=== PATIENT | male | born 1975 | race Caucasian/White ===

== ENCOUNTER → 2018-01-14 | Outpatient (CLI) | payer SELFPAY ==
--- NOTE | 2018-01-14 15:14 | US ---
EXAMINATION TYPE: US abdomen limited DATE OF EXAM: 01/14/2018 COMPARISON: NONE CLINICAL HISTORY: R10.31 Rt Lower Quad Pain. Appendix not visualized with certainty 10 images saved show visualization of vessels in the right lower quadrant presumed iliac vessels with out worrisome fluid collection or definitive visualization of appendix. IMPRESSION: As above. Consider CT evaluation based on degree of clinical suspicion.
[2018-01-14 15:23] LABS: Basophils % (A) 0 %; Eosinophils % (A) 0 %; HCT 44.1 % (39.0-53.0); HGB 15.5 gm/dL (13.0-17.5); Lymphocytes # (A) 1.3 k/uL (1.0-4.8); Lymphocytes % (A) 9 %; MCH 33.1 pg (25.0-35.0); MCV 94.4 fL (80.0-100.0); Mean Platelet Volume 7.7; Monocytes # (A) 0.9 k/uL (0-1.0); Monocytes % (A) 6 %; Neutrophils # (A) 11.7 k/uL (1.3-7.7); Neutrophils % (A) 83 %; Platelet Count 146 k/uL (150-450); RBC 4.67 m/uL (4.30-5.90); RDW 12.4 % (11.5-15.5); WBC 14.1 k/uL (3.8-10.6)
== END | disposition home or self-care (01) ==
LOC: RADUSWWP 14:24
PROVIDERS: ATTEND Family Medicine
DX: R10.31 Right lower quadrant pain (principal); K50.90 Crohn's disease, unspecified, without complications
CPT/HCPCS: 76705; 85025; 86140

== ENCOUNTER 2018-01-18 08:54 | Inpatient (IN) | payer OTHER ==
[2018-01-18] MEDS ORDERED: SODIUM CHLORIDE 0.9% 1,000 ML IV STA ×2 (09:57)
[2018-01-18] MEDS ORDERED: ACETAMINOPHEN TAB 500 MG TAB PO STA (09:57)
--- NOTE | 2018-01-18 10:11 | ED ---
General Adult HPI <Laurent Cooper - Last Filed: 01/18/18 12:43> - General Source: patient, RN notes reviewed, old records reviewed Mode of arrival: ambulatory Limitations: no limitations <Lamin Schaffer - Last Filed: 01/18/18 12:47> - General Chief complaint: Fever Stated complaint: headache, fever Time Seen by Provider: 01/18/18 09:49 - History of Present Illness Initial comments: Patient is a 42-year-old male with no significant past medical history, presented to the emergency room today with a chief complaint of a headache and a fever times one week. He does admit that he noticed that he had a headache after coming home from work one week ago. States he jumped in the shower. She states when he got out a began feeling very warm. Nose that he had a fever. States she's had symptoms back and forth over the past week. He states fever spike to 3 times a day. He states that the headache seems to come in waves as well where it increases and goes back down throughout the day. Patient describes the headache as being located upfront more to the right side. Patient doesn't that he went to the family doctor's office last week for this symptoms. Was advised come here to the hospital because they were worried about his appendix at the time. He states he's had no abdominal pain. He doesn 't that his appetite has been somewhat down but seems to be getting better. Patient denies any neck pain or stiffness. Patient denies any recent shortness of breath, chest pain, back pain, abdominal pain, nausea or vomiting, numbness or tingling, dysuria or hematuria, constipation or diarrhea, visual changes, or any other complaints. (Lamin Schaffer) - Related Data Home Medications Medication Instructions Recorded Confirmed Atenolol [Tenormin] 25 mg PO BID 04/04/15 01/18/18 Hyoscyamine Sulfate [Levbid] 0.375 mg PO BID 04/04/15 01/18/18 Ibuprofen [Motrin] 800 mg PO Q8HR PRN 04/04/15 01/18/18 Lisinopril [Zestril] 20 mg PO BID 04/04/15 01/18/18 Omeprazole [PriLOSEC] 20 mg PO DAILY 04/04/15 01/18/18 Hydrocodone/Acetaminophen [[place] 1 - 2 tab PO Q4HR PRN 01/18/18 01/18/18 5-325] Magnesium 200 mg PO DAILY 01/18/18 01/18/18 Allergies Allergy/AdvReac Type Severity Reaction Status Date / Time No Known Allergies Allergy Verified 01/18/18 10:13 Review of Systems ROS Other: All systems not noted in ROS Statement are negative. <CooperLaurent - Last Filed: 01/18/18 12:43> ROS Other: All systems not noted in ROS Statement are negative. <SarbjitLamin - Last Filed: 01/18/18 12:47> ROS Statement: Those systems with pertinent positive or pertinent negative responses have been documented in the HPI. Past Medical History Past Medical History: GERD/Reflux, Hypertension Additional Past Medical History / Comment(s): IBS History of Any Multi-Drug Resistant Organisms: None Reported Past Surgical History: Hernia Repair Additional Past Surgical History / Comment(s): LT ING. HERNIA REPAIR. UMBILICAL REPAIR. SINUS SX. COLONOSCOPY. EGD Past Anesthesia/Blood Transfusion Reactions: No Reported Reaction Past Psychological History: No Psychological Hx Reported Smoking Status: Current every day smoker Past Alcohol Use History: None Reported Past Drug Use History: None Reported - Past Family History Father Family Medical History: Cancer, Deep Vein Thrombosis (DVT) Mother Family Medical History: Cancer, Deep Vein Thrombosis (DVT) Sister(s) Family Medical History: Deep Vein Thrombosis (DVT) <SarbjitLamin - Last Filed: 01/18/18 12:47> General Exam <KennethLaurent - Last Filed: 01/18/18 12:43> Limitations: no limitations <SarbjitLamin - Last Filed: 01/18/18 12:47> - General Exam Comments Initial Comments: General: The patient is awake and alert, in no distress. Diaphoretic. Eye: Pupils are equal, round and reactive to light. Extra-ocular movements are intact. No nystagmus. There is normal conjunctiva bilaterally. No signs of icterus. Ears, nose, mouth and throat: There are moist mucous membranes and no oral lesions. Neck: The neck is supple, there is no tenderness or JVD. No meningismal signs. Cardiovascular: There is a regular rate and rhythm. No murmur, rub or gallop is appreciated. Respiratory: Lungs are clear to auscultation, respirations are non-labored, breath sounds are equal. No wheezes, stridor, rales, or rhonchi. Gastrointestinal: Soft, non-distended, non-tender abdomen without masses or organomegaly noted. There is no rebound or guarding present. No CVA tenderness. Bowel sounds are unremarkable. Musculoskeletal: Normal ROM, no tenderness. Sensation intact. Strength 5/5. Pulses equal bilaterally 2+. Neurological: A&O x 3. CN II-XII intact, There are no obvious motor or sensory deficits. Coordination appears grossly intact. Speech is normal. Skin: Skin is warm and dry and no rashes or lesions are noted. Psychiatric: Cooperative, appropriate mood & affect, normal judgment. (Lamin Schaffer) Course <Laurent Cooper - Last Filed: 01/18/18 12:43> <Lamin Schaffer - Last Filed: 01/18/18 12:47> Vital Signs 01/18/18 01/18/18 08:58 11:27 Temperature 102.7 F H 97.9 F Pulse Rate 104 H 66 Respiratory 20 18 Rate Blood Pressure 118/71 121/64 O2 Sat by Pulse 98 95 Oximetry - Reevaluation(s) Reevaluation #1: 01/18/18 12:44 Patient was reevaluated by myself, Dr. Cooper. Patient resting comfortably in bed. Patient does have some rales on auscultation. This x-ray with bilateral infiltrates. No headache at this time. No meningismus. Patient updated on results. Case was discussed in detail with Dr. Hernandez who is familiar with this patient and will admit. Patient does meet sepsis criteria diagnosed at 1244. Blood culture and lactic acid and IV antibiotics have all been ordered. (Laurent Cooper) 01/18/18 11:10 Patient's chest x-ray reviewed does show bilateral infiltrates. Patient is diagnosed with sepsis at this time as he is tachycardic with a fever and pneumonia on x-ray. Patient started on antibiotics of Rocephin and azithromycin. No elevated white count. Lactic acid pending. Patient's potassium 3.2. Given by mouth potassium. Patient doing well at this time. Show no signs of distress. (Lamin Schaffer) Medical Decision Making - Lab Data Result diagrams: 01/18/18 09:43 09/17/18 09:43 <Laurent Cooper - Last Filed: 01/18/18 12:43> - Lab Data Result diagrams: 01/18/18 09:43 01/18/18 09:43 <Lamin Schaffer - Last Filed: 01/18/18 12:47> - Lab Data Lab Results 01/18/18 01/18/18 01/18/18 Range/Units 09:43 09:43 09:43 WBC 9.3 (3.8-10.6) k/uL RBC 4.45 (4.30-5.90) m/uL Hgb 14.3 (13.0-17.5) gm/dL Hct 40.8 (39.0-53.0) % MCV 91.7 (80.0-100.0) fL MCH 32.2 (25.0-35.0) pg MCHC 35.1 (31.0-37.0) g/dL RDW 12.4 (11.5-15.5) % Plt Count 232 (150-450) k/uL Neutrophils % 83 % Lymphocytes % 11 % Monocytes % 4 % Eosinophils % 1 % Basophils % 0 % Neutrophils # 7.7 (1.3-7.7) k/uL Lymphocytes # 1.0 (1.0-4.8) k/uL Monocytes # 0.3 (0-1.0) k/uL Eosinophils # 0.1 (0-0.7) k/uL Basophils # 0.0 (0-0.2) k/uL Sodium 134 L (137-145) mmol/L Potassium 3.2 L (3.5-5.1) mmol/L Chloride 98 (98-107) mmol/L Carbon Dioxide 25 (22-30) mmol/L Anion Gap 11 mmol/L BUN 18 (9-20) mg/dL Creatinine 1.03 (0.66-1.25) mg/dL Est GFR (CKD-EPI)AfAm >90 (>60 ml/min/1.73 sqM) Est GFR (CKD-EPI)NonAf >90 (>60 ml/min/1.73 sqM) Glucose 118 H (74-99) mg/dL Plasma Lactic Acid [place] 1.2 (0.7-2.0) mmol/L Calcium 8.5 (8.4-10.2) mg/dL Total Bilirubin 1.0 (0.2-1.3) mg/dL AST 51 (17-59) U/L ALT 53 (21-72) U/L Alkaline Phosphatase 68 (38-126) U/L Total Protein 6.1 L (6.3-8.2) g/dL Albumin 3.4 L (3.5-5.0) g/dL Disposition <Laurent oCoper - Last Filed: 01/18/18 12:43> Is patient prescribed a controlled substance at d/c from ED?: No Time of Disposition: 12:45 <Lamin Schaffer - Last Filed: 01/18/18 12:47> Clinical Impression: CAP (community acquired pneumonia), Sepsis Disposition: ADMITTED IP TO THIS HOSP Condition: Good Referrals: Darren France Jr, DO [Primary Care Provider] - 1-2 days
[2018-01-18 10:14] LABS: Basophils % (A) 0 %; Eosinophils # (A) 0.1 k/uL (0-0.7); Eosinophils % (A) 1 %; HCT 40.8 % (39.0-53.0); HGB 14.3 gm/dL (13.0-17.5); Lymphocytes % (A) 11 %; MCH 32.2 pg (25.0-35.0); MCHC 35.1 g/dL (31.0-37.0); MCV 91.7 fL (80.0-100.0); Mean Platelet Volume 7.3; Monocytes # (A) 0.3 k/uL (0-1.0); Monocytes % (A) 4 %; Neutrophils # (A) 7.7 k/uL (1.3-7.7); Neutrophils % (A) 83 %; Platelet Count 232 k/uL (150-450); RBC 4.45 m/uL (4.30-5.90); RDW 12.4 % (11.5-15.5); WBC 9.3 k/uL (3.8-10.6)
[2018-01-18 10:23] LABS: ALT 53 U/L (21-72); AST 51 U/L (17-59); Albumin 3.4 g/dL (3.5-5.0); Alkaline Phosphatase 68 U/L (38-126); Anion Gap 11 mmol/L; Blood Urea Nitrogen 18 mg/dL (9-20); Calcium 8.5 mg/dL (8.4-10.2); Carbon Dioxide 25 mmol/L (22-30); Chloride 98 mmol/L (98-107); Glucose 118 mg/dL (74-99); Potassium 3.2 mmol/L (3.5-5.1); Sodium 134 mmol/L (137-145); Total Protein 6.1 g/dL (6.3-8.2)
--- NOTE | 2018-01-18 10:29 | XR ---
EXAMINATION TYPE: XR chest 2V DATE OF EXAM: 01/18/2018 COMPARISON: NONE TECHNIQUE: PA and lateral views submitted. HISTORY: Fever and cough FINDINGS: There are bilateral infiltrates with most marked findings involving the left upper lobe. No pleural e ffusion or pneumothorax. Heart size within normal limits. IMPRESSION: 1. Bilateral infiltrate correlate for pneumonia.
--- NOTE | 2018-01-18 11:07 | CT ---
EXAMINATION TYPE: CT brain wo con DATE OF EXAM: 01/18/2018 COMPARISON: 09/12/2013 HISTORY: fever and Right orbital headache for [address] DLP: 1072.[address] of the brain was performed. The ventricles, basal cisterns and sulci overlying the cerebral convexities demonstrate a normal appe arance. There is no evidence for intracranial hemorrhage or sulcal effacement. No mass effects are seen. Osseous calvarium is intact. If symptoms persist consider MRI as clinically warranted. IMPRESSION: 1. No acute intracranial process is seen at this time.
[2018-01-18] MEDS ORDERED: POTASSIUM CHLORIDE ER 20 MEQ TAB.ER PO STA ×2 (11:11→17:05)
[2018-01-18] MEDS ORDERED: AZITHROMYCIN 500 MG in SODIUM CHLORIDE 0.9% 250 ML IVPB STA (11:16)
[2018-01-18 11:28] VITALS: RESP 18
[2018-01-18] MEDS ORDERED: PNEUMONIA PROTOCOL UTILIZED 1 EACH MISC PO PRN (12:47)
[2018-01-18] MEDS ORDERED: SODIUM CHLORIDE 0.9% 1,000 ML IV ONE (12:47)
[2018-01-18] MEDS ORDERED: HYDROcodone/APAP 5-325MG 1 EACH TAB PO PRN ×3 (15:02→15:19)
[2018-01-18] MEDS ORDERED: IBUPROFEN 800 MG TAB PO PRN ×2 (15:02→15:21)
[2018-01-18] MEDS ORDERED: ACETAMINOPHEN TAB 325 MG TAB PO PRN (15:05)
[2018-01-18 16:12] VITALS: BP 128/74; PULSE 84; TEMP 98.1
[2018-01-18] MEDS ORDERED: LISINOPRIL 20 MG TAB PO SCH (21:00)
[2018-01-18] MEDS ORDERED: ATENOLOL 25 MG TAB PO SCH (21:00)
[2018-01-18] MEDS ORDERED: HYOSCYAMINE SULFATE 0.375 MG TAB.ER.12H PO SCH (21:00)
[2018-01-19] MEDS ORDERED: PANTOPRAZOLE 40 MG TABLET PO SCH (07:30)
[2018-01-19] MEDS ORDERED: MAGNESIUM OXIDE 400 MG TAB PO SCH (09:00)
[2018-01-19] MEDS ORDERED: AZITHROMYCIN 500 MG TAB PO SCH (09:00)
--- NOTE | 2018-01-20 09:37 | P.DS ---
Providers Date of admission: 01/18/18 12:43 Expected date of discharge: 01/18/18 Attending physician: Darren France Primary care physician: Darren Edilma [facility] Course: DOCUMENT SERVES H&P AND DISCHARGE SUMMARY 42-year-old male who presented to the emergency room on 01/18/2018 chief complaint of a headache and a fever. Patient states he noticed his headache earlier in the day. He also complained of feeling warm and feverish. His headache has resolved by the time he was evaluated by medical team in his room on the medical floor. CT of the brain was completed which was negative for an acute intracranial process. Chest x-ray revealed bilateral pneumonia. The patient was started on azithromycin and Rocephin. He was given IV fluids in the emergency room. Upon examination at the bedside on the medical floor, the patient states he is feeling much better. He is afebrile at this time. He denies shortness of breath. Denies headache. Denies nausea or vomiting. Denies chest pain or pressure. His vital signs have been stable. The patient has no health insurance and is requesting to be discharged home. Dr. France is agreeable to discharge home today. The patient is to see Dr. Fracne tomorrow in the office for a second shot of Rocephin. A prescription was sent to the patient's preferred pharmacy for azithromycin. The patient was stable at the time of discharge and verbalized understanding of all discharge instructions. DISCHARGE DIAGNOSIS: Bilateral pneumonia, community-acquired, organism unspecified Headache, etiology unclear, resolved at the time of discharge, brain CT negative Hypertension Gastroesophageal reflux disease Nicotine dependence Nurse practitioner note has been reviewed by physician. Signing provider agrees with the documented findings, assessment, and plan of care. Patient Condition at Discharge: Stable Plan - Discharge Summary Discharge Rx Participant: No New Discharge Prescriptions: New Azithromycin [Zithromax] 500 mg PO DAILY #3 tab Continue Atenolol [Tenormin] 25 mg PO BID Lisinopril [Zestril] 20 mg PO BID Ibuprofen [Motrin] 800 mg PO Q8HR PRN PRN Reason: Pain Hyoscyamine Sulfate [Levbid] 0.375 mg PO BID Omeprazole [PriLOSEC] 20 mg PO DAILY Hydrocodone/Acetaminophen [[place] 5-325] 1 - 2 tab PO Q4HR PRN PRN Reason: pain Magnesium 200 mg PO DAILY Discharge Medication List Atenolol [Tenormin] 25 mg PO BID 04/04/15 [History] Hyoscyamine Sulfate [Levbid] 0.375 mg PO BID 04/04/15 [History] Ibuprofen [Motrin] 800 mg PO Q8HR PRN 04/04/15 [History] Lisinopril [Zestril] 20 mg PO BID 04/04/15 [History] Omeprazole [PriLOSEC] 20 mg PO DAILY 04/04/15 [History] Azithromycin [Zithromax] 500 mg PO DAILY #3 tab 01/18/18 [Rx] Hydrocodone/Acetaminophen [[place] 5-325] 1 - 2 tab PO Q4HR PRN 01/18/18 [History] Magnesium 200 mg PO DAILY 01/18/18 [History] Follow up Appointment(s)/Referral(s): Darren France Jr, [Primary Care Provider] - 01/19/18 11:00 am Patient Instructions/Handouts: Viral Pneumonia (DC) Activity/Diet/Wound Care/Special Instructions: Patient must see Dr. France tomorrow for Rocephin injection. Please make patient an appointment before discharge Await repeat potassium level before discharge. If potassium is 3.5 or greater, no further action necessary. If potassium 3.4 or less, give 20meq kdur x 1 dose and then discharge home. Discharge Disposition: HOME SELF-CARE
== END 2018-01-18 18:14 | disposition home or self-care (01) | DRG 195 ==
LOC: EC 08:54 → 4MS4W 12:43
PROVIDERS: ADMIT Family Medicine; ATTEND Family Medicine
DX: J18.9 Pneumonia, unspecified organism (principal); R51 Headache; I10 Essential (primary) hypertension; K21.9 Gastro-esophageal reflux disease without esophagitis; F17.200 Nicotine dependence, unspecified, uncomplicated; Z79.891 Long term (current) use of opiate analgesic; Z79.899 Other long term (current) drug therapy
CPT/HCPCS: 36415; 70450; 71046; 80053; 83605; 84132; 85025; 87040; 96361; 96365; 96367; 99285

== ENCOUNTER → 2023-04-21 | Outpatient (CLI) | payer OTHER ==
[2023-04-21 15:24] LABS: Chol/HDL Ratio 4.57 Ratio; LDL Cholesterol,Calculated 168.9 mg/dL (0.0-131.0)
[2023-04-21 15:41] LABS: ALT 35 U/L (10-49); AST 30 U/L (14-35)
[2023-04-22 03:12] LABS: B/A1 Ratio 0.76 Ratio (0.35 - 1.00)
== END | disposition home or self-care (01) ==
LOC: LABWHC1 09:30
PROVIDERS: ATTEND Internal Medicine
DX: E78.2 Mixed hyperlipidemia (principal)
CPT/HCPCS: 36415; 80061; 82172; 84450; 84460

== ENCOUNTER → 2024-05-02 | Outpatient (CLI) | payer BC ==
--- NOTE | 2024-05-17 05:04 | P.PCN ---
Date of Procedure: 05/02/24 Operative Findings: Home sleep study History This is a 48-year-old male patient with known history of severe RASHIDA with an AHI of 64 based on a sleep study done back in 2012. The patient has been off treatment and he presented to me for reevaluation. Over the past several years, the patient did not use CPAP therapy and has become more symptomatic and more somnolent. In addition, the patient was diagnosed having hypertrophic obstructive cardiomyopathy. No significant weight gain. No cardiac arrhythm ias. The patient is currently being considered for an AICD regarding his hypertrophic obstructive cardiomyopathy. A home sleep study was ordered to reestablish diagnosis. Physical findings Weight is 250 pounds with a body mass index of 32.1 Technical description This is a type III home sleep study evaluation. The [employer] system was used to complete the home sleep study. The total recording duration was 7 hours and 29 minutes. The study started at 11:37 PM and ended at 7:06 AM. There was a total of 7 hours and 17 minutes of flow monitoring in 6 hours and 7 minutes of oxygen saturation monitoring Results Respiratory analysis showed a total of 92 obstructive apneas and 146 obstructive hypopneas. The resulting AHI was 32.6 consistent with severe RASHIDA Oxygenation analysis The baseline pulse ox while awake was 95%. Average pulse ox during sleep was 90%. Minimum pulse ox was 76%. The patient spent approximately 1 hours and 44 minutes of the sleep time below pulse ox of 90%. Cardiac summary Average heart rate was 72 with a minimum heart rate of 66 and a maximum heart rate of 169 Assessment Severe RASHIDA with an AHI of 32.6 Severe nocturnal oxygen desaturation with a minimum pulse ox of 76% during sleep Hypertrophic obstructive cardiomyopathy Obesity with a BMI of 32 Plan Proceed with in lab CPAP titration.
== END ==
LOC: 3 N SLEEP 10:48
PROVIDERS: ATTEND Internal Medicine Critical Care Medicine
DX: G47.33 Obstructive sleep apnea (adult) (pediatric) (principal); I42.1 Obstructive hypertrophic cardiomyopathy; E66.9 Obesity, unspecified; R09.02 Hypoxemia; F17.210 Nicotine dependence, cigarettes, uncomplicated; Z68.32 Body mass index [BMI] 32.0-32.9, adult

== ENCOUNTER 2024-06-21 17:22 | Emergency (ER) | payer BC ==
[2024-06-21 17:38] VITALS: RESP 18
[2024-06-21] MEDS: DEXAMETHASONE SOD PHOSPHATE 10 MG/ML 1 ML VIAL IM STA (18:38)
[2024-06-21] MEDS: ORPHENADRINE 30 MG/ML 2 ML VIAL IM STA (18:38)
[2024-06-21] MEDS: KETOROLAC 15 MG/ML 1 ML VIAL IM STA (18:38)
[2024-06-21] MEDS: LIDOCAINE 4% PATCH TOPICAL ONE (18:43)
--- NOTE | 2024-06-21 19:43 | ED ---
Back Pain HPI - General Chief Complaint: Back Pain/Injury Stated Complaint: Back pain Time Seen by Provider: 06/21/24 18:10 Source: patient Limitations: no limitations - History of Present Illness Initial Comments: Examination male complaining of back pain. Patient has history of lower back pain. Feels like regular exacerbation of his chronic pain. No known injury or trauma. No radiculopathy. No loss of bowel or bladder control or saddle paresthesia. No fever, chills, nausea, vomiting, abdominal pain, dysuria, hematuria, numbness, tingling, weakness. - Related Data Home Medications Medication Instructions Recorded Confirmed Hyoscyamine Sulfate [Levbid] 0.375 mg PO BID 04/04/15 01/18/18 Ibuprofen [Motrin] 800 mg PO Q8HR PRN 04/04/15 01/18/18 Omeprazole [PriLOSEC] 20 mg PO DAILY 04/04/15 01/18/18 atenoloL [Tenormin] 25 mg PO BID 04/04/15 01/18/18 lisinopriL [Zestril] 20 mg PO BID 04/04/15 01/18/18 Hydrocodone/Acetaminophen [[place] 1 - 2 tab PO Q4HR PRN 01/18/18 01/18/18 5-325] Magnesium 200 mg PO DAILY 01/18/18 01/18/18 Previous Rx's Medication Instructions Recorded Azithromycin [Zithromax] 500 mg PO DAILY #3 tab 01/18/18 Cyclobenzaprine [Flexeril] 10 mg PO TID PRN #15 tab 06/21/24 Allergies Allergy/AdvReac Type Severity Reaction Status Date / Time No Known Allergies Allergy Verified 06/21/24 17:38 Review of Systems ROS Statement: Those systems with pertinent positive or pertinent negative responses have been documented in the HPI. ROS Other: All systems not noted in ROS Statement are negative. Past Medical History Past Medical History: GERD/Reflux, Hypertension Additional Past Medical History / Comment(s): IBS, DDD lumbar spine. History of Any Multi-Drug Resistant Organisms: None Reported Past Surgical History: Hernia Repair Additional Past Surgical History / Comment(s): EGD, colonoscopy, repair L inguinal hernia, repair umbilical hernia and then repair incarcerated umbilical hernia with mesh. Past Anesthesia/Blood Transfusion Reactions: No Reported Reaction Past Psychological History: No Psychological Hx Reported Smoking Status: Current every day smoker Past Alcohol Use History: Occasional Past Drug Use History: None Reported, Marijuana - Past Family History Father Family Medical History: Cancer, Congestive Heart Failure (CHF), Deep Vein Thrombosis (DVT) Additional Family Medical History / Comment(s): Throat cancer. Father is living. Mother Family Medical History: Congestive Heart Failure (CHF), Deep Vein Thrombosis (DVT) Additional Family Medical History / Comment(s): Mother is living. Sister(s) Family Medical History: Deep Vein Thrombosis (DVT) General Exam Limitations: no limitations General appearance: alert, in no apparent distress Head exam: Present: atraumatic, normocephalic, normal inspection Eye exam: Present: normal appearance, EOMI Neck exam: Present: normal inspection. Absent: meningismus Respiratory exam: Absent: respiratory distress Cardiovascular Exam: Present: regular rate Extremities exam: Present: normal inspection, full ROM Back exam: Present: normal inspection. Absent: tenderness Neurological exam: Present: alert, oriented X3 Psychiatric exam: Present: normal affect, normal mood Skin exam: Present: warm, dry, normal color Course Vital Signs 06/21/24 06/21/24 17:36 22:25 Temperature 97.9 F 97.8 F Pulse Rate 86 81 Respiratory 18 18 Rate Blood Pressure 110/71 112/72 O2 Sat by Pulse 97 98 Oximetry Medical Decision Making - Medical Decision Making Was pt. sent in by a medical professional or institution ([facility], [facility] [facility], urgent care, hospital, or fdc...) When possible be specific @ -No Did you speak to anyone other than the patient for history (EMS, parent, family, police, friend...)? What history was obtained from this source @ -No Did you review nursing and triage notes (agree or disagree)? Why? @ -I reviewed and agree with nursing and triage notes Were old charts reviewed (outside hosp., previous admission, EMS record, old EKG, old radiological studies, urgent care reports/EKG's, fdc records)? Report findings @ -No old charts were reviewed Differential Diagnosis (chest pain, altered mental status, abdominal pain women, abdominal pain men, vaginal bleeding, weakness, fever, dyspnea, syncope, headache, dizziness, GI bleed, back pain, seizure, CVA, palpatations, mental health, musculoskeletal)? @ - MDM Differential Back Pain: Strain, zoster, cauda equina syndrome, epidural abscess, vertebral osteomyelitis, discitis, fracture, subluxation, disc herniation, DJD, spinal stenosis, dissection, AAA, pancreatitis, peptic ulcer disease, pyelonephritis, kidney stone this is not meant to be an all-inclusive list. EKG interpreted by me (3pts min.). @ -As above X-rays interpreted by me (1pt min.). @ -None done CT interpreted by me (1pt min.). @ -None done U/S interpreted by me (1pt. min.). @ -None done What testing was considered but not performed or refused? (CT, X-rays, U/S, labs )? Why? @ -None What meds were considered but not given or refused? Why? @ -None Did you discuss the management of the patient with other professionals (professionals i.e. , PA, P[employer]IC [employer]ER, lab, RT, psych nurse, sexual assault social worker, electrical helper, teacher, radio division officer, correctional case manager)? Give summary @ -No Was smoking cessation discussed for >3mins.? @ -No Was critical care preformed (if so, how long)? @ -No Were there social determinants of health that impacted care today? How? (Homelessness, low income, unemployed, alcoholism, drug addiction, transportation, low edu. Level, literacy, decrease access to med. care, penitentiary, rehab)? @ -No Was there de-escalation of care discussed even if they declined (Discuss DNR or withdrawal of care, Hospice)? DNR status @ -No What co-morbidities impacted this encounter? (DM, HTN, Smoking, COPD, CAD, Cancer, CVA, ARF, Chemo, Hep., AIDS, mental health diagnosis, sleep apnea, morbid obesity)? @ -None Was patient admitted / discharged? Hospital course, mention meds given and route, prescriptions, significant lab abnormalities, going to OR and other pertinent info. @ -48-year-old male presenting with chief complaint of lower back pain. No red flag symptoms. Feels like an exacerbation of his chronic pain. Patient is treated with pain medication. Patient is later requesting discharge home. Follow-up with PCP. Report back to ER with any new or worsening symptoms. Discussed return parameters and answered all questions. Patient conveyed verbal understanding and agreed to the plan. I discussed this case in detail with my attending Dr. Undiagnosed new problem with uncertain prognosis? @ -No Drug Therapy requiring intensive monitoring for toxicity (Heparin, Nitro, Insulin, Cardizem)? @ -No Were any procedures done? @ -No Diagnosis/symptom? @ -Lumbar back pain Acute, or Chronic, or Acute on Chronic? @ -Acute on chronic Uncomplicated (without systemic symptoms) or Complicated (systemic symptoms)? @ -Uncomplicated Side effects of treatment? @ -No Exacerbation, Progression, or Severe Exacerbation? @ -No Poses a threat to life or bodily function? How? (Chest pain, [place], [place], pneumonia, PE, COPD, DKA, ARF, appy, cholecystitis, CVA, Diverticulitis, Homicidal, Suicidal, threat to staff... and all critical care pts) @ -Low likelihood Disposition Clinical Impression: Lumbar back pain Disposition: HOME SELF-CARE Condition: Good Instructions (If sedation given, give patient instructions): Acute Low Back Pain (ED) Additional Instructions: Follow-up with PCP. Report back to ER with any new or worsening symptoms. Prescriptions: Cyclobenzaprine [Flexeril] 10 mg PO TID PRN #15 tab PRN Reason: Spasms Is patient prescribed a controlled substance at d/c from ED?: No Referrals: Darren France Jr, [Primary Care Provider] - 1-2 days
[2024-06-21] MEDS: MORPHINE SULFATE 4 MG/ML SYRINGE IM STA (21:13)
[2024-06-21 22:27] VITALS: BP 112/72; PULSE 81; TEMP 97.8
== END 2024-06-21 22:27 | disposition home or self-care (01) ==
LOC: EC 17:22
DX: M54.50 Low back pain, unspecified (principal); F17.200 Nicotine dependence, unspecified, uncomplicated
CPT/HCPCS: 99283; 96372; J2270; J1100; J2360; J1885

== ENCOUNTER → 2024-07-28 | Outpatient (CLI) | payer BC ==
--- NOTE | 2024-07-28 11:26 | XR ---
EXAMINATION TYPE: XR lumbar spine 2 or 3V DATE OF EXAM: 07/28/2024 CLINICAL HISTORY: Lumbar back pain TECHNIQUE: Three views of the lumbar spine are submitted. COMPARISON: None. FINDINGS: There are 5 lumbar type vertebral bodies identified. No acute fracture. Mild retrolisthesis of L3 on L4. Vertebral body heights are within normal limits. Multilevel disc space narrowing with endplate sclerosis and anterior osteophytosis. Multilevel facet arthropathy lower lumbar spine most pronounced at L5-S1. The overlying soft tissue appears unremarkable. IMPRESSION: 1. No acute fracture. 2. Moderate multilevel degenerative disc disease. [facility], , 07/28/2024 11:24 AM
== END | disposition home or self-care (01) ==
LOC: RADXRMAIN 10:59
PROVIDERS: ATTEND Family Medicine
DX: M51.360 Other intervertebral disc degeneration, lumbar region with discogenic back pain only (principal); M47.816 Spondylosis without myelopathy or radiculopathy, lumbar region
CPT/HCPCS: 72100

== ENCOUNTER → 2024-08-15 | Outpatient (CLI) | payer BC | END | disposition home or self-care (01) | LOC: LABPAT 12:51 | PROVIDERS: ATTEND Orthopaedic Surgery Orthopaedic Surgery of the Spine | DX: Z53.9 Procedure and treatment not carried out, unspecified reason (principal) ==

== ENCOUNTER → 2024-08-15 | Outpatient (CLI) | payer BC ==
[2024-08-15 18:47] LABS: Basophils # (A) 0.03 X 10*3/uL (0.00-0.10); Basophils % (A) 0.1 %; Eosinophils # (A) 0 X 10*3/uL (0.04-0.35); Eosinophils % (A) 0 %; HCT 41.7 % (39.6-50.0); HGB 14.2 g/dL (13.0-17.0); Lymphocytes # (A) 1.49 X 10*3/uL (0.90-5.00); Lymphocytes % (A) 7.1 %; MCH 29.6 pg (27.0-32.0); MCHC 34.1 g/dL (32.0-37.0); MCV 87.1 FL (80.0-97.0); Mean Platelet Volume 9.7 FL (9.5-12.2); Monocytes # (A) 0.86 X 10*3/uL (0.20-1.00); Monocytes % (A) 4.1 %; NRBC Per 100 WBC 0 X 10*3/uL (0.00-0.01); Neutrophils # (A) 18.46 X 10*3/uL (1.80-7.70); Neutrophils % (A) 87.9 %; Platelet Count 347 X 10*3/uL (140-440); RBC 4.79 X 10*6/uL (4.40-5.60); RDW 13.4 % (11.5-14.5); WBC 21.01 X 10*3/uL (4.50-10.00)
[2024-08-15 19:40] LABS: ALT 22 U/L (10-49); AST 20 U/L (14-35); Albumin 3.9 g/dL (3.8-4.9); Albumin/Globulin Ratio 1.22 Ratio (1.60-3.17); Alkaline Phosphatase 110 U/L (41-126); BUN/Creat Ratio 28.09 Ratio (12.00-20.00); Blood Urea Nitrogen 30.9 mg/dL (9.0-27.0); Calcium 9.8 mg/dL (8.7-10.3); Carbon Dioxide 21.8 mmol/L (21.6-31.8); Chloride 95 mmol/L (96-109); Globulin 3.2 g/dL (1.6-3.3); Glucose 138 mg/dL (70-110); Potassium 4.2 mmol/L (3.5-5.5); Sodium 133 mmol/L (135-145); Total Bilirubin 0.8 mg/dL (0.3-1.2); Total Protein 7.1 g/dL (6.2-8.2)
[2024-08-15 19:41] LABS: Erythrocyte Sedimentation Rate 35 mm/Hr (0-15)
== END | disposition home or self-care (01) ==
LOC: LABWHC1 12:48
PROVIDERS: ATTEND Family Medicine
DX: M54.50 Low back pain, unspecified (principal); R11.10 Vomiting, unspecified
CPT/HCPCS: 36415; 80053; 85025; 85652; 86140

== ENCOUNTER 2024-08-18 11:18 | Inpatient (IN) | payer OTHER ==
--- NOTE | 2024-08-18 11:32 | ED ---
General Adult HPI - General Chief complaint: Recheck/Abnormal Lab/Rx Stated complaint: abn labs Time Seen by Provider: 08/18/24 11:25 Source: patient, RN notes reviewed, old records reviewed Mode of arrival: EMS Limitations: no limitations - History of Present Illness Initial comments: This is a 48-year-old male who presents to the emergency department the past medical history significant for Crohn's. Patient states he injured his back in June and he recently had an MRI and it is thought that he might have a back infection and he went to see Dr. Aguilar and lab work came back showing that at 21,000 white count and he has lost weight his blood pressure was low so Dr. Aguilar sentiment to the hospital to get admitted. Patient denies any numbness or weakness currently but he states occasionally has some sciatica in the right leg. Patient denies any fever chills. Patient denies chest pain difficulty breathing or cough. - Related Data Home Medications Medication Instructions Recorded Confirmed Hyoscyamine Sulfate [Levbid] 0.375 mg PO Q12H 04/04/15 08/18/24 Ibuprofen [Motrin] 800 mg PO TID PRN 04/04/15 08/18/24 Omeprazole [PriLOSEC] 20 mg PO DAILY 04/04/15 08/18/24 lisinopriL [Zestril] 20 mg PO BID 04/04/15 08/18/24 HYDROcodone/APAP 10-325MG [[place] 1 tab PO Q6H PRN 08/18/24 08/18/24 10-325] Metoprolol Succinate (ER) [Toprol 100 mg PO DAILY 08/18/24 08/18/24 Xl] amLODIPine [Norvasc] 2.5 mg PO DAILY 08/18/24 08/18/24 hydroCHLOROthiazide [Hydrodiuril] 25 mg PO DAILY 08/18/24 08/18/24 methocarbamoL [Robaxin] 500 mg PO Q8H 08/18/24 08/18/24 Allergies Allergy/AdvReac Type Severity Reaction Status Date / Time No Known Allergies Allergy Verified 08/18/24 11:54 Review of Systems ROS Statement: Those systems with pertinent positive or pertinent negative responses have been documented in the HPI. ROS Other: All systems not noted in ROS Statement are negative. Past Medical History Past Medical History: GERD/Reflux, Hypertension Additional Past Medical History / Comment(s): IBS, DDD lumbar spine. History of Any Multi-Drug Resistant Organisms: None Reported Past Surgical History: Hernia Repair Additional Past Surgical History / Comment(s): EGD, colonoscopy, repair L inguinal hernia, repair umbilical hernia and then repair incarcerated umbilical hernia with mesh. Past Anesthesia/Blood Transfusion Reactions: No Reported Reaction Past Psychological History: No Psychological Hx Reported Smoking Status: Current every day smoker Past Alcohol Use History: Occasional Past Drug Use History: None Reported, Marijuana - Past Family History Father Family Medical History: Cancer, Congestive Heart Failure (CHF), Deep Vein Thrombosis (DVT) Additional Family Medical History / Comment(s): Throat cancer. Father is living. Mother Family Medical History: Congestive Heart Failure (CHF), Deep Vein Thrombosis (DVT) Additional Family Medical History / Comment(s): Mother is living. Sister(s) Family Medical History: Deep Vein Thrombosis (DVT) General Exam - General Exam Comments Initial Comments: GENERAL: Patient is well-developed and well-nourished. Patient is nontoxic and well- hydrated and is in mild distress. ENT: Neck is soft and supple. No significant lymphadenopathy is noted. Oropharynx is clear. Moist mucous membranes. Neck has full range of motion without eliciting any pain. EYES: The sclera were anicteric and conjunctiva were pink and moist. Extraocular movements were intact and pupils were equal round and reactive to light. Eyelids were unremarkable. PULMONARY: Unlabored respirations. Good breath sounds bilaterally. No audible rales rhonc hi or wheezing was noted. CARDIOVASCULAR: There is a regular rate and rhythm without any murmurs gallops or rubs. ABDOMEN: Soft and nontender with normal bowel sounds. SKIN: Skin is clear with no lesions or rashes and otherwise unremarkable. NEUROLOGIC: Patient is alert and oriented x3. Cranial nerves II through XII are grossly intact. Motor and sensory are also intact. Normal speech, volume and content. Symmetrical smile. MUSCULOSKELETAL: Normal extremities with adequate strength and full range of motion. LYMPHATICS: No significant lymphadenopathy is noted PSYCHIATRIC: Normal psychiatric evaluation. Limitations: no limitations Course Vital Signs 08/18/24 08/18/24 08/18/24 11:22 12:02 12:26 Temperature 98.2 F Pulse Rate 80 79 78 Respiratory 18 20 18 Rate Blood Pressure 86/60 85/63 99/65 O2 Sat by Pulse 97 96 97 Oximetry 08/18/24 08/18/24 08/18/24 12:58 14:00 15:13 Temperature 99.1 F Pulse Rate 75 74 75 Respiratory 18 18 18 Rate Blood Pressure 116/69 102/62 98/61 O2 Sat by Pulse 98 97 97 Oximetry 08/18/24 16:23 Temperature 98.7 F Pulse Rate 76 Respiratory 20 Rate Blood Pressure 104/56 O2 Sat by Pulse 97 Oximetry Medical Decision Making - Medical Decision Making EKG is interpreted by myself. EKG shows a sinus rhythm at 83 bpm [place] was 150 QRS 109 QT interval 383 QTc is 423. Patient's EKG shows no ST segment elevation or depression. Was pt. sent in by a medical professional or institution ([facility], [employer]IANCE [employer], urgent care, hospital, or senior care...) When possible be specific @ -No Did you speak to anyone other than the patient for history (EMS, parent, family, police, friend...)? What history was obtained from this source @ -No Did you review nursing and triage notes (agree or disagree)? Why? @ -I reviewed and agree with nursing and triage notes Were old charts reviewed (outside hosp., previous admission, EMS record, old EKG, old radiological studies, urgent care reports/EKG's, senior care records)? Report findings @ -No old charts were reviewed Differential Diagnosis? @ -Differential Back Pain: Strain, zoster, cauda equina syndrome, epidural abscess, vertebral osteomyelitis, discitis, fracture, subluxation, disc herniation, DJD, spinal stenosis, dissection, AAA, pancreatitis, peptic ulcer disease, pyelonephritis, kidney stone, this is not meant to be an all-inclusive list. EKG interpreted by me (3pts min.). @ -As above X-rays interpreted by me (1pt min.). @ -None done CT interpreted by me (1pt min.). @ -None done U/S interpreted by me (1pt. min.). @ -None done What testing was considered but not performed or refused? (CT, X-rays, U/S, labs)? Why? @ -None What meds were considered but not given or refused? Why? @ -None Did you discuss the management of the patient with other professionals (professionals i.e. Dr., PA, APPLIANCE FIXER, lab, RT, psych nurse, social services counselor, solar installation technician, teacher, resident medical officer, cyanide case hardener)? Give summary @ -I spoke with Dr. Nicole he agreed to admit the patient admit the patient with admitting orders Was smoking cessation discussed for >3mins.? @ -No Was critical care preformed (if so, how long)? @ -No Were there social determinants of health that impacted care today? How? (Homelessness, low income, unemployed, alcoholism, drug addiction, transportation, low edu. Level, literacy, decrease access to med. care, long-term, rehab)? @ -No Was there de-escalation of care discussed even if they declined (Discuss DNR or withdrawal of care, Hospice)? DNR status @ -No What co-morbidities impacted this encounter? (DM, HTN, Smoking, COPD, CAD, Cancer, CVA, ARF, Chemo, Hep., AIDS, mental health diagnosis, sleep apnea, m orbid obesity)? @ -None Was patient admitted / discharged? Hospital course, mention meds given and r oute, prescriptions, significant lab abnormalities, going to OR and other pertinent info. @ -I reviewed the patient's MRI and it showed a discitis and with the patient's significant pain I started the patient on antibiotics I spoke with Dr. Nicole he agreed to admit the patient I consulted Carrie Undiagnosed new problem with uncertain prognosis? @ -No Drug Therapy requiring intensive monitoring for toxicity (Heparin, Nitro, Insulin, Cardizem)? @ -No Were any procedures done? @ -No Diagnosis/symptom? @ -Discitis Acute, or Chronic, or Acute on Chronic? @ -Acute Uncomplicated (without systemic symptoms) or Complicated (systemic symptoms)? @ -Complicated Side effects of treatment? @ -No Exacerbation, Progression, or Severe Exacerbation? @ -No Poses a threat to life or bodily function? How? (Chest pain, USA, OR, pneumonia, PE, COPD, DKA, ARF, appy, cholecystitis, CVA, Diverticulitis, Homicidal, Suicidal, threat to staff... and all critical care pts) @ -Yes this could lead to sepsis and endorgan dysfunction - Lab Data Result diagrams: 08/19/24 03:57 08/19/24 12:13 Lab Results 04/17/25 04/17/25 04/17/25 Range/Units 11:35 11:35 11:35 WBC 22.02 H (4.50-10.00) 10*3/uL RBC 4.68 (4.40-5.60) 10*6/uL Hgb 13.7 (13.0-17.0) g/dL Hct 40.0 (39.6-50.0) % MCV 85.5 (80.0-97.0) fL MCH 29.3 (27.0-32.0) pg MCHC 34.3 (32.0-37.0) g/dL Plt Count 260 (140-440) 10*3/uL MPV 9.3 L (9.5-12.2) fL Immature Gran % (Auto) 0.9 % Neutrophils % 86.8 % Lymphocytes % 9.2 % Monocytes % 2.8 % Eosinophils % 0.1 % Basophils % 0.2 % Immature Gran # 0.20 H (0.00-0.04) 10*3/uL Neutrophils # 19.12 H (1.80-7.70) 10*3/uL Lymphocytes # 2.02 (0.90-5.00) 10*3/uL Monocytes # 0.61 (0.20-1.00) 10*3/uL Eosinophils # 0.02 L (0.04-0.35) 10*3/uL Basophils # 0.05 (0.00-0.10) 10*3/uL PT 11.5 (10.0-12.5) sec INR 1.1 (<1.2) APTT 22.7 (22.0-30.0) sec Sodium 131 L (137-145) mmol/L Potassium 3.7 (3.5-5.1) mmol/L Chloride 94 L (98-107) mmol/L Carbon Dioxide 27 (22-30) mmol/L Anion Gap 10 mmol/L BUN 30 H (9-20) mg/dL Creatinine 1.36 H (0.66-1.25) mg/dL Est GFR (CKD-EPI)AfAm 71 (>60 ml/min/1.73 sqM) Est GFR (CKD-EPI)NonAf 62 (>60 ml/min/1.73 sqM) Glucose 161 H (74-99) mg/dL Lactic Ac Sepsis Rflx Plasma Lactic Acid Stuart (0.7-2.0) mmol/L Calcium 9.2 (8.4-10.2) mg/dL Total Bilirubin 1.3 (0.2-1.3) mg/dL AST 19 (17-59) U/L ALT 19 (4-49) U/L Alkaline Phosphatase 94 (38-126) U/L C-Reactive Protein (<1.0) mg/dL Total Protein 7.0 (6.3-8.2) g/dL Albumin 3.9 (3.5-5.0) g/dL Amylase 56 (30-110) U/L Lipase 159 (23-300) U/L 08/18/24 08/18/24 08/18/24 Range/Units 11:35 12:01 13:14 WBC (4.50-10.00) 10*3/uL RBC (4.40-5.60) 10*6/uL Hgb (13.0-17.0) g/dL Hct (39.6-50.0) % MCV (80.0-97.0) fL MCH (27.0-32.0) pg MCHC (32.0-37.0) g/dL Plt Count (140-440) 10*3/uL MPV (9.5-12.2) fL Immature Gran % (Auto) % Neutrophils % % Lymphocytes % % Monocytes % % Eosinophils % % Basophils % % Immature Gran # (0.00-0.04) 10*3/uL Neutrophils # (1.80-7.70) 10*3/uL Lymphocytes # (0.90-5.00) 10*3/uL Monocytes # (0.20-1.00) 10*3/uL Eosinophils # (0.04-0.35) 10*3/uL Basophils # (0.00-0.10) 10*3/uL PT (10.0-12.5) sec INR (<1.2) APTT (22.0-30.0) sec Sodium (137-145) mmol/L Potassium (3.5-5.1) mmol/L Chloride (98-107) mmol/L Carbon Dioxide (22-30) mmol/L Anion Gap mmol/L BUN (9-20) mg/dL Creatinine (0.66-1.25) mg/dL Est GFR (CKD-EPI)AfAm (>60 ml/min/1.73 sqM) Est GFR (CKD-EPI)NonAf (>60 ml/min/1.73 sqM) Glucose (74-99) mg/dL Lactic Ac Sepsis Rflx Y Plasma Lactic Acid Stuart 2.6 H* (0.7-2.0) mmol/L Calcium (8.4-10.2) mg/dL Total Bilirubin (0.2-1.3) mg/dL AST (17-59) U/L ALT (4-49) U/L Alkaline Phosphatase (38-126) U/L C-Reactive Protein 8.6 H (<1.0) mg/dL Total Protein (6.3-8.2) g/dL Albumin (3.5-5.0) g/dL Amylase (30-110) U/L Lipase (23-300) U/L Disposition Clinical Impression: Discitis of lumbosacral region Disposition: ADMITTED IP TO THIS HOSP
[2024-08-18] MEDS: LACTATED RINGERS 1,000 ML IV ONE (11:37)
[2024-08-18 11:43] LABS: Basophils # (A) 0.05 10*3/uL (0.00-0.10); Basophils % (A) 0.2 %; Eosinophils # (A) 0.02 10*3/uL (0.04-0.35); Eosinophils % (A) 0.1 %; HGB 13.7 g/dL (13.0-17.0); Lymphocytes # (A) 2.02 10*3/uL (0.90-5.00); Lymphocytes % (A) 9.2 %; MCH 29.3 pg (27.0-32.0); MCHC 34.3 g/dL (32.0-37.0); MCV 85.5 fL (80.0-97.0); Mean Platelet Volume 9.3 fL (9.5-12.2); Monocytes # (A) 0.61 10*3/uL (0.20-1.00); Monocytes % (A) 2.8 %; Neutrophils # (A) 19.12 10*3/uL (1.80-7.70); Neutrophils % (A) 86.8 %; Platelet Count 260 10*3/uL (140-440); RBC 4.68 10*6/uL (4.40-5.60); RDW 13.4 % (11.5-14.5); WBC 22.02 10*3/uL (4.50-10.00)
[2024-08-18 11:50] LABS: INR 1.1 (<1.2); Partial Thromboplastin Time 22.7 sec (22.0-30.0); Prothrombin Time 11.5 sec (10.0-12.5)
[2024-08-18] MEDS ORDERED: VANCOMYCIN IV PER PHARMACY 1 EACH MISC MISCELLANE PRN (11:55)
[2024-08-18 11:58] LABS: ALT 19 U/L (4-49); AST 19 U/L (17-59); African American GFR (CKD) 71 (>60 ml/min/1.73 sqM); Albumin 3.9 g/dL (3.5-5.0); Alkaline Phosphatase 94 U/L (38-126); Amylase 56 U/L (30-110); Anion Gap 10 mmol/L; Blood Urea Nitrogen 30 mg/dL (9-20); Calcium 9.2 mg/dL (8.4-10.2); Carbon Dioxide 27 mmol/L (22-30); Chloride 94 mmol/L (98-107); Glucose 161 mg/dL (74-99); Lipase 159 U/L (23-300); Non-African American GFR(CKD) 62 (>60 ml/min/1.73 sqM); Potassium 3.7 mmol/L (3.5-5.1); Sodium 131 mmol/L (137-145); Total Bilirubin 1.3 mg/dL (0.2-1.3)
[2024-08-18] MEDS: CEFEPIME 2 GM in SODIUM CHLORIDE 0.9% 100 ML IVPB STA (12:27)
[2024-08-18] MEDS: HYDROmorphone 0.5 MG/0.5 ML SYRINGE IVP STA (12:53)
[2024-08-18] MEDS: VANCOMYCIN 1,750 MG in SODIUM CHLORIDE 0.9% 500 ML 500 ML IVPB ONE (12:56)
[2024-08-18] MEDS: PANTOPRAZOLE 40 MG/10 ML VIAL IVP SCH (13:17)
[2024-08-18] MEDS: NICOTINE 21MG/24HR PATCH TRANSDERM STA (13:20)
[2024-08-18 14:51] LABS: Basophils # (A) 0.03 10*3/uL (0.00-0.10); Basophils % (A) 0.2 %; Eosinophils # (A) 0.01 10*3/uL (0.04-0.35); Eosinophils % (A) 0.1 %; HCT 33.8 % (39.6-50.0); HGB 11.9 g/dL (13.0-17.0); Lymphocytes # (A) 1.65 10*3/uL (0.90-5.00); Lymphocytes % (A) 10.3 %; MCH 30.1 pg (27.0-32.0); MCHC 35.2 g/dL (32.0-37.0); MCV 85.6 fL (80.0-97.0); Mean Platelet Volume 9.3 fL (9.5-12.2); Monocytes # (A) 0.75 10*3/uL (0.20-1.00); Monocytes % (A) 4.7 %; Neutrophils % (A) 83.8 %; Platelet Count 207 10*3/uL (140-440); RBC 3.95 10*6/uL (4.40-5.60); RDW 13.3 % (11.5-14.5); WBC 16.08 10*3/uL (4.50-10.00)
[2024-08-18] MEDS: SODIUM CHLORIDE 0.9% 1,000 ML IV ONE (15:15)
[2024-08-18] MEDS: DAPTOmycin 500 MG in SODIUM CHLORIDE 0.9% 50 ML IVPB SCH (15:15)
[2024-08-18] MEDS: HYDROmorphone 0.5 MG/0.5 ML SYRINGE IVP PRN (15:37)
[2024-08-18] MEDS ORDERED: LORazepam 1 MG/0.5 ML VIAL IV PRN ×3 (15:46)
--- NOTE | 2024-08-18 16:17 | XR ---
EXAMINATION TYPE: XR chest 2V DATE OF EXAM: 08/18/2024 4:14 PM COMPARISON: Chest radiographs from 01/18/2018 TECHNIQUE: XR chest 2V Frontal and lateral views of the chest. CLINICAL INDICATION:Male, 48 years old with history of Sepsis, SOB; FINDINGS: Lungs/Pleura: There is no evidence of pleural effusion, focal consolidation, or pneumothorax. Pulmonary vascularity: Unremarkable. Heart/mediastinum: Cardiomediastinal silhouette is unremarkable. Musculoskeletal: No acute osseous pathology. IMPRESSION: No acute cardiopulmonary disease/process. [facility], , 08/18/2024 4:14 PM
--- NOTE | 2024-08-18 16:33 | P.HPIM ---
History of Present Illness H&P Date: 08/18/24 Chief Complaint: Back pain This is a 48-year-old gentleman with past medical history significant for degenerative disc disease of lumbar spine, intensified/flare-up in June. Recently started following with orthopedic spine Dr. Butler. Reports MRI performed at last week, report being obtained. Reports mid lower back pain upon standing. Patient had gone to see his PCP Dr. France this morning appeared cold, clammy, hypotensive with outpatient labs reporting white count of 2100, in addition to significant weight loss. Patient was sent by EMS to the ER. Receiving IV fluid resuscitation -Currently total fluid boluses of 1200 mL. Blood pressure soft on admission. antibiotics of vancomycin, cefepime. Denies chest pain, palpitations or shortness of breath. Afebrile, WBC 22, hemoglobin 13.7 MCV 85.5, platelets 260 INR 1.1, sodium 131, potassium 3.7, carbon 27, anion gap 10 BUN 30, creatinine 1.36, glucose 161, lactic acid 2.6, calcium 9.2, T. bili/LFTs within normal limits, amylase/lipase within normal limits. Denies loss of bowel or bladder control or saddle paresthesia denies fever or chills. Denies abdominal pain, dysuria, hematuria.denies bloody stools, dark stools .denies numbness or weakness, occasional sciatica of the right leg. Denies chest pain, palpitations or shortness of breath. Past medical history also significant for IBS/Crohn's-last exacerbation was years ago with Dr. Mendieta, gastroesophageal reflux disease, severe sleep apnea, hypertrophic obstructive cardiomyopathy, ongoing nicotine dependence of greater than 30 years-half a pack per day, regular alcohol use drinks greater than 14 beers per week, marijuana use. Review of Systems ROS Statement: Those systems with pertinent positive or pertinent negative responses have been documented in the HPI. ROS Other: All systems not noted in ROS Statement are negative. Past Medical History Past Medical History: GERD/Reflux, Hypertension Additional Past Medical History / Comment(s): IBS, DDD lumbar spine. History of Any Multi-Drug Resistant Organisms: None Reported Past Surgical History: Hernia Repair Additional Past Surgical History / Comment(s): EGD, colonoscopy, repair L inguinal hernia, repair umbilical hernia and then repair incarcerated umbilical hernia with mesh. Past Anesthesia/Blood Transfusion Reactions: No Reported Reaction Past Psychological History: No Psychological Hx Reported Smoking Status: Current every day smoker Past Alcohol Use History: Occasional Past Drug Use History: None Reported, Marijuana - Past Family History Father Family Medical History: Cancer, Congestive Heart Failure (CHF), Deep Vein Thrombosis (DVT) Additional Family Medical History / Comment(s): Throat cancer. Father is living. Mother Family Medical History: Congestive Heart Failure (CHF), Deep Vein Thrombosis (DVT) Additional Family Medical History / Comment(s): Mother is living. Sister(s) Family Medical History: Deep Vein Thrombosis (DVT) Medications and Allergies Home Medications Medication Instructions Recorded Confirmed Type Hyoscyamine Sulfate [Levbid] 0.375 mg PO Q12H 04/04/15 08/18/24 History Ibuprofen [Motrin] 800 mg PO TID PRN 04/04/15 08/18/24 History Omeprazole [PriLOSEC] 20 mg PO DAILY 04/04/15 08/18/24 History lisinopriL [Zestril] 20 mg PO BID 04/04/15 08/18/24 History HYDROcodone/APAP 10-325MG [[place] 1 tab PO Q6H PRN 08/18/24 08/18/24 History 10-325] Metoprolol Succinate (ER) [Toprol 100 mg PO DAILY 08/18/24 08/18/24 History Xl] amLODIPine [Norvasc] 2.5 mg PO DAILY 08/18/24 08/18/24 History hydroCHLOROthiazide [Hydrodiuril] 25 mg PO DAILY 08/18/24 08/18/24 History methocarbamoL [Robaxin] 500 mg PO Q8H 08/18/24 08/18/24 History cefTRIAXone [Rocephin] 2 gm IVPB Q24H #40 each 08/22/24 Rx Allergies Allergy/AdvReac Type Severity Reaction Status Date / Time No Known Allergies Allergy Verified 08/18/24 11:54 Physical Exam Vitals: Vital Signs Temp Pulse Resp BP Pulse Ox 08/18/24 14:00 74 18 102/62 97 08/18/24 12:58 75 18 116/69 98 08/18/24 12:26 78 18 99/65 97 08/18/24 12:02 79 20 85/63 96 08/18/24 11:22 98.2 F 80 18 86/60 97 Intake and Output 08/17/24 08/18/24 08/18/24 22:59 06:59 14:59 Other: Weight 83.915 kg PHYSICAL EXAM: VITAL SIGNS: [Reviewed] GENERAL: Alert and oriented x 3, sitting up on stretcher HEENT: Conjunctivae normal. eyes normal. NECK: No JVD. No thyroid enlargement. No LNs CARDIOVASCULAR: S1, S2 regular. Systolic murmur. RESPIRATION: Breath sounds diminished in the bases. No rhonchi or crackles. No bronchial breathing. ABDOMEN: Soft, nontender . No guarding. no masses palpable. No ascites, No hepatosplenomegaly.Bowel sounds heard. LEGS: No edema. no swelling PSYCHIATRY: Alert and oriented X3, mood and affect normal. NERVOUS SYSTEM: Cranial N 2-12 grossly normal. Moves all 4 limbs. Diffuse weakness No focal deficits. Strength and sensation grossly intact. Skin: no lesions, no rash Joints: No active swelling. No inflammation. Lymphatic system. No LN neck axilla or groin. Results CBC & Chem 7: 08/22/24 02:23 08/21/24 02:34 Labs: Abnormal Lab Results - Last 24 Hours (Table) 08/18/24 08/18/24 08/18/24 Range/Units 11:35 11:35 11:35 WBC 22.02 H (4.50-10.00) 10*3/uL MPV 9.3 L (9.5-12.2) fL Immature Gran # 0.20 H (0.00-0.04) 10*3/uL Neutrophils # 19.12 H (1.80-7.70) 10*3/uL Eosinophils # 0.02 L (0.04-0.35) 10*3/uL Sodium 131 L (137-145) mmol/L Chloride 94 L (98-107) mmol/L BUN 30 H (9-20) mg/dL Creatinine 1.36 H (0.66-1.25) mg/dL Glucose 161 H (74-99) mg/dL Plasma Lactic Acid Stuart 2.6 H* (0.7-2.0) mmol/L C-Reactive Protein (<1.0) mg/dL 08/18/24 Range/Units 13:14 WBC (4.50-10.00) 10*3/uL MPV (9.5-12.2) fL Immature Gran # (0.00-0.04) 10*3/uL Neutrophils # (1.80-7.70) 10*3/uL Eosinophils # (0.04-0.35) 10*3/uL Sodium (137-145) mmol/L Chloride (98-107) mmol/L BUN (9-20) mg/dL Creatinine (0.66-1.25) mg/dL Glucose (74-99) mg/dL Plasma Lactic Acid Stuart (0.7-2.0) mmol/L C-Reactive Protein 8.6 H (<1.0) mg/dL Assessment and Plan Assessment: -Acute on chronic back pain upon standing up, in a patient with history of DDD lumbar spine ,ruling out discitis, possible developing osteomyelitis, follows with Dr. [id number]. -Sepsis secondary to the above, with hypotension, leukocytosis, cultures pending -Lactic acidosis -Acute renal injury secondary to all the above -Unintentional 43 pound weight loss since 06/28, BMI 32 1 year ago, decreased to 24, workup in progress. -Severe RASHIDA -Hypertrophic obstructive cardiomyopathy -Nicotine dependence, smokes 1/2 pack/day - Hypertension - Gastroesophageal reflux disease - IBS, Crohn's disease. Reports last exacerbation of Crohn's disease managed by Dr. Mendieta. - Hypertension - Regular alcohol use reports drinks greater than 14 beers a week - Marijuana use Plan: Continue on current medication regime ,monitoring and symptomatic treatment. Pancultured. IV fluid resuscitation. Pain management. Obtaining MRI report from [facility]. Repeat CBC, sed rate, CRP, EtOH level,stool for occult blood, nicotine patch, CIWA protocol ordered .PPI ordered for GI prophylaxis. Dr. Butler/orthopedic spine, infectious disease, pulmonary/tool and die repair and cardiology consulted as per PCP. Discontinued vancomycin. Discussed with i nfectious disease with further adjustments in antibiotics pending. Repeat lactic acid pending. close monitoring of coags, renal function, electrolytes with repeat labs ordered for tomorrow. The impression and plan of care has been dictated as directed. : I performed a history and examination of this patient, discussed the same with the dictator. I agree with the dictator's note ,documented as a scribe. Any additional findings or plans will be noted.
[2024-08-18 19:40] LABS: Erythrocyte Sedimentation Rate 33 mm/Hr (0-15)
--- NOTE | 2024-08-18 21:29 | P.CONS ---
History of Present Illness - Reason for Consult Consult date: 08/18/24 Discitis/sepsis Requesting physician: Allyson Vasquez - Chief Complaint Back pain x days - History of Present Illness Patient is a 48-year-old male with a past medical history significant for reflux hypertension IBS degenerative disc disease to the lumbar spine has been dealing with lower back pain since June 2024 started after currently doing physical work at a job which she is not accustomed to patient has been evaluated and treated by PCP in the ER and the patient did have 2 spinal injection has been on tapering course of steroid which he recently completed on Thursday and has also been evaluated by spine surgery and did have an outpatient MRI this was suspicious for discitis patient has not been sent to the ER from the PCP office with the patient was noticed to have elevated white count of 21,000 and noticed to have low blood pressure for the patient was advised to go to the hospital patient did not recall any high-grade fever has been complaining of pain to the lower back to be sharp moderate to severe intensity did have difficulty walking because of the pain but denies any focal weakness no bowel bladder problem no chest pain shortness with or cough no abdominal pain or diarrhea on presentation to hospital patient was afebrile he did have a low- grade fever of 99 point 1 in the afternoon patient was not tachycardic hypotensive or hypoxic he did have white count of 22,000 with a left shift BUN and creatinine has been mildly elevated lactic acid was 2.6 CRP is 8.6 sed rate of 33 patient was started on cefepime and vancomycin infectious was consulted for further management of antibiotic therapy chest x-ray were negative for acute cardiopulmonary disease process Review of Systems Positive point and negatives has been mentioned in the HPI, complete review of systems was performed and all other systems are negative Past Medical History Past Medical History: GERD/Reflux, Hypertension Additional Past Medical History / Comment(s): IBS, DDD lumbar spine. History of Any Multi-Drug Resistant Organisms: None Reported Past Surgical History: Hernia Repair Additional Past Surgical History / Comment(s): EGD, colonoscopy, repair L inguinal hernia, repair umbilical hernia and then repair incarcerated umbilical hernia with mesh. Past Anesthesia/Blood Transfusion Reactions: No Reported Reaction Past Psychological History: No Psychological Hx Reported Smoking Status: Current every day smoker Past Alcohol Use History: Occasional Past Drug Use History: None Reported, Marijuana - Past Family History Father Family Medical History: Cancer, Congestive Heart Failure (CHF), Deep Vein Thro mbosis (DVT) Additional Family Medical History / Comment(s): Throat cancer. Father is living. Mother Family Medical History: Congestive Heart Failure (CHF), Deep Vein Thrombosis (DVT) Additional Family Medical History / Comment(s): Mother is living. Sister(s) Family Medical History: Deep Vein Thrombosis (DVT) Medications and Allergies Home Medications Medication Instructions Recorded Confirmed Type Hyoscyamine Sulfate [Levbid] 0.375 mg PO Q12H 04/04/15 08/18/24 History Ibuprofen [Motrin] 800 mg PO TID PRN 04/04/15 08/18/24 History Omeprazole [PriLOSEC] 20 mg PO DAILY 04/04/15 08/18/24 History lisinopriL [Zestril] 20 mg PO BID 04/04/15 08/18/24 History HYDROcodone/APAP 10-325MG [[place] 1 tab PO Q6H PRN 08/18/24 08/18/24 History 10-325] Metoprolol Succinate (ER) [Toprol 100 mg PO DAILY 08/18/24 08/18/24 History Xl] amLODIPine [Norvasc] 2.5 mg PO DAILY 08/18/24 08/18/24 History hydroCHLOROthiazide [Hydrodiuril] 25 mg PO DAILY 08/18/24 08/18/24 History methocarbamoL [Robaxin] 500 mg PO Q8H 08/18/24 08/18/24 History Allergies Allergy/AdvReac Type Severity Reaction Status Date / Time No Known Allergies Allergy Verified 08/18/24 11:54 Physical Exam Vitals: Vital Signs Temp Pulse Resp BP Pulse Ox 08/18/24 14:00 74 18 102/62 97 08/18/24 12:58 75 18 116/69 98 08/18/24 12:26 78 18 99/65 97 08/18/24 12:02 79 20 85/63 96 08/18/24 11:22 98.2 F 80 18 86/60 97 Intake and Output 08/17/24 08/18/24 08/18/24 22:59 06:59 14:59 Other: Weight 83.915 kg GENERAL DESCRIPTION: Middle-age male lying in bed, no distress. No tachypnea or accessory muscle of respiration use. HEENT: Shows Pallor , no scleral icterus. Oral mucous membrane is dry. No pharyngeal erythema or thrush NECK: Trachea central, no thyromegaly. LUNGS: Unlabored breathing. Clear to auscultation anteriorly. No wheeze or crackle. HEART: S1, S2, regular rate and rhythm. No loud murmur ABDOMEN: Soft, no tenderness , guarding or rigidity, no organomegaly EXTREMITIES: No edema of feet. SKIN: No rash, no masses palpable. NEUROLOGICAL: The patient is awake, alert, oriented x3, mood and affect normal. Results CBC & Chem 7: 08/18/24 14:32 08/18/24 11:35 Labs: Abnormal Lab Results - Last 24 Hours (Table) 08/18/24 08/18/24 08/18/24 Range/Units 11:35 11:35 11:35 WBC 22.02 H (4.50-10.00) 10*3/uL MPV 9.3 L (9.5-12.2) fL Immature Gran # 0.20 H (0.00-0.04) 10*3/uL Neutrophils # 19.12 H (1.80-7.70) 10*3/uL Eosinophils # 0.02 L (0.04-0.35) 10*3/uL Sodium 131 L (137-145) mmol/L Chloride 94 L (98-107) mmol/L BUN 30 H (9-20) mg/dL Creatinine 1.36 H (0.66-1.25) mg/dL Glucose 161 H (74-99) mg/dL Plasma Lactic Acid Stuart 2.6 H* (0.7-2.0) mmol/L C-Reactive Protein (<1.0) mg/dL 08/18/24 Range/Units 13:14 WBC (4.50-10.00) 10*3/uL MPV (9.5-12.2) fL Immature Gran # (0.00-0.04) 10*3/uL Neutrophils # (1.80-7.70) 10*3/uL Eosinophils # (0.04-0.35) 10*3/uL Sodium (137-145) mmol/L Chloride (98-107) mmol/L BUN (9-20) mg/dL Creatinine (0.66-1.25) mg/dL Glucose (74-99) mg/dL Plasma Lactic Acid Stuart (0.7-2.0) mmol/L C-Reactive Protein 8.6 H (<1.0) mg/dL Assessment and Plan (1) Discitis Current Visit: Yes Status: Acute Code(s): M46.40 - DISCITIS, UNSPECIFIED, SITE UNSPECIFIED SNOMED Code(s): 1679639 (2) Sepsis Current Visit: No Status: Acute Code(s): A41.9 - SEPSIS, UNSPECIFIED ORGANISM SNOMED Code(s): 30014360 (3) Elevated serum creatinine Current Visit: Yes Status: Acute Code(s): R79.89 - OTHER SPECIFIED ABNORMAL FINDINGS OF BLOOD CHEMISTRY SNOMED Code(s): 001999315 Plan: 1patient presented to hospital with worsening lower back pain in this patient who did have elevated white count elevated lactic acid meeting criteria for SIRS and question of sepsis source would be likely discitis in this patient who did have recent worsening of his chronic back pain and apparently outpatient MRI was suspicious for discitis 2-MRI of the lumbar spine with and without contrast has been ordered for further definition of underlying pathology 3-if discitis confirmed the patient will need specimen of the area for microbiological diagnosis this has been discussed in detail with the spine surgery who is recommending for possible IR evaluation for the same 4-patient did have elevated creatinine high risk of nephrotoxicity from vancomyc in which has been discontinued 5-will treat empirically with cefepime and daptomycin while waiting for the workup to be completed Multiple questions asked and answered We will follow on clinical condition and cultures to further adjust medication if needed Thank you for this consultation we will follow the patient along with you Dictation was produced using freee dictation software. please excuse any grammatical, word or spelling errors. Time with Patient: Greater than 30
[2024-08-18] MEDS: amLODIPine 2.5 MG TAB PO SCH (22:25)
[2024-08-18] MEDS: lisinopriL 20 MG TAB PO SCH (22:25)
[2024-08-18] MEDS: METOPROLOL TARTRATE 50 MG TAB PO SCH (22:25)
[2024-08-18] MEDS: HYDROcodone/APAP 10-325MG 1 EACH TAB PO PRN (22:25)
[2024-08-18] MEDS: hydroCHLOROthiazide 25 MG TAB PO SCH (22:25)
[2024-08-18] MEDS: methocarbamoL 500 MG TAB PO SCH (22:26)
[2024-08-18] MEDS: HYOSCYAMINE SULFATE 0.375 MG TAB.ER.12H PO SCH (22:26)
[2024-08-19] MEDS ORDERED: VANCOMYCIN 1,500 MG in SODIUM CHLORIDE 0.9% 500 ML 500 ML IVPB SCH
[2024-08-19 00:25] LABS: Appearance,Urine Clear (Clear); Bilirubin,Urine Negative (Negative); Blood,Urine Negative (Negative); Color,Urine Colorless; Glucose,Urine (UA) Negative (Negative); Ketones,Urine Negative (Negative); Leukocyte Esterase,Urine Negative (Negative); Nitrite,Urine Negative (Negative); Protein,Urine Negative (Negative); Specific Gravity,Urine 1.008 (1.001-1.035); Urobilinogen,Urine <2.0 mg/dL (<2.0)
[2024-08-19 04:40] LABS: African American GFR (CKD) >90 (>60 ml/min/1.73 sqM); Anion Gap 2 mmol/L; Blood Urea Nitrogen 21 mg/dL (9-20); Calcium 8.5 mg/dL (8.4-10.2); Carbon Dioxide 27 mmol/L (22-30); Chloride 99 mmol/L (98-107); Glucose 91 mg/dL (74-99); Non-African American GFR(CKD) >90 (>60 ml/min/1.73 sqM); Potassium 3.5 mmol/L (3.5-5.1); Sodium 128 mmol/L (137-145)
[2024-08-19 05:37] LABS: Basophils # (A) 0.02 10*3/uL (0.00-0.10); Basophils % (A) 0.2 %; Eosinophils # (A) 0.08 10*3/uL (0.04-0.35); HCT 29.8 % (39.6-50.0); HGB 10.2 g/dL (13.0-17.0); Lymphocytes # (A) 2.41 10*3/uL (0.90-5.00); Lymphocytes % (A) 29.1 %; MCH 29.7 pg (27.0-32.0); MCHC 34.2 g/dL (32.0-37.0); MCV 86.6 fL (80.0-97.0); Mean Platelet Volume 9.5 fL (9.5-12.2); Monocytes # (A) 0.84 10*3/uL (0.20-1.00); Monocytes % (A) 10.2 %; Neutrophils # (A) 4.87 10*3/uL (1.80-7.70); Neutrophils % (A) 58.9 %; Platelet Count 173 10*3/uL (140-440); RBC 3.44 10*6/uL (4.40-5.60); RDW 13.4 % (11.5-14.5); WBC 8.27 10*3/uL (4.50-10.00)
--- NOTE | 2024-08-19 07:57 | P.PN ---
Subjective Progress Note Date: 08/19/24 Principal diagnosis: lumbar discitiis admitted, started on iv antibiotic, appropriate pain management initiated Objective - Vital Signs Vital signs: Vital Signs Temp 97.6 F 08/19/24 06:53 Pulse 83 08/19/24 06:53 Resp 18 08/19/24 06:53 BP 100/52 08/19/24 06:53 Pulse Ox 100 08/19/24 06:53 FiO2 Intake & Output 08/18/24 08/19/24 08/19/24 18:59 06:59 18:59 Intake Total 200 720 Balance 200 720 Weight 83.915 kg Intake: Oral 200 720 Other: # Voids 4 - Exam General: [Patient awake, alert and oriented times 3. Patient in no acute distress.] HEENT: [PERRL. EOMI. No pharyngeal erythema or exudate.] Neck: [No adenopathy.] Cardiac: [Heart regular in rate and rhythm. No S3. No S4. No clicks, rubs. No murmur.] Lungs: [Clear to auscultation bilaterally.] Abdomen: [No mass. No organomegaly. Bowel sounds presnt and normoactive in all 4 quadrants.] Extremes: [No edema no cyanosis no claudication normal pulses, low back pain with ambulation : normal male genetalia Musculoskeletal: [No joint erythema, edema or tenderness.] Skin: [No rash.] Neurologic: [No lateralizing deficits. CN II - XII grossly intact.] Lymphatic: [No adenopathy.] - Labs CBC & Chem 7: 08/19/24 03:57 08/19/24 03:57 Labs: Abnormal Lab Results - Last 24 Hours (Table) 08/18/24 08/18/24 08/18/24 Range/Units 11:35 11:35 11:35 WBC 22.02 H (4.50-10.00) 10*3/uL RBC (4.40-5.60) 10*6/uL Hgb (13.0-17.0) g/dL Hct (39.6-50.0) % MPV 9.3 L (9.5-12.2) fL Immature Gran # 0.20 H (0.00-0.04) 10*3/uL Neutrophils # 19.12 H (1.80-7.70) 10*3/uL Eosinophils # 0.02 L (0.04-0.35) 10*3/uL ESR (0-15) mm/Hr Sodium 131 L (137-145) mmol/L Chloride 94 L (98-107) mmol/L BUN 30 H (9-20) mg/dL Creatinine 1.36 H (0.66-1.25) mg/dL Glucose 161 H (74-99) mg/dL Plasma Lactic Acid Stuart 2.6 H* (0.7-2.0) mmol/L C-Reactive Protein (<1.0) mg/dL 08/18/24 08/18/24 08/19/24 Range/Units 13:14 14:32 03:57 WBC 16.08 H (4.50-10.00) 10*3/uL RBC 3.95 L 3.44 L (4.40-5.60) 10*6/uL Hgb 11.9 L 10.2 L (13.0-17.0) g/dL Hct 33.8 L 29.8 L (39.6-50.0) % MPV 9.3 L (9.5-12.2) fL Immature Gran # 0.14 H 0.05 H (0.00-0.04) 10*3/uL Neutrophils # 13.50 H (1.80-7.70) 10*3/uL Eosinophils # 0.01 L (0.04-0.35) 10*3/uL ESR 33 H (0-15) mm/Hr Sodium (137-145) mmol/L Chloride (98-107) mmol/L BUN (9-20) mg/dL Creatinine (0.66-1.25) mg/dL Glucose (74-99) mg/dL Plasma Lactic Acid Stuart (0.7-2.0) mmol/L C-Reactive Protein 8.6 H (<1.0) mg/dL 08/19/24 Range/Units 03:57 WBC (4.50-10.00) 10*3/uL RBC (4.40-5.60) 10*6/uL Hgb (13.0-17.0) g/dL Hct (39.6-50.0) % MPV (9.5-12.2) fL Immature Gran # (0.00-0.04) 10*3/uL Neutrophils # (1.80-7.70) 10*3/uL Eosinophils # (0.04-0.35) 10*3/uL ESR (0-15) mm/Hr Sodium 128 L (137-145) mmol/L Chloride (98-107) mmol/L BUN 21 H (9-20) mg/dL Creatinine (0.66-1.25) mg/dL Glucose (74-99) mg/dL Plasma Lactic Acid Stuart (0.7-2.0) mmol/L C-Reactive Protein (<1.0) mg/dL Assessment and Plan (1) Discitis Narrative/Plan: iv antibiotic therapy, pain management Current Visit: Yes Status: Acute Code(s): M46.40 - DISCITIS, UNSPECIFIED, SITE UNSPECIFIED SNOMED Code(s): 6217961 (2) Elevated serum creatinine Narrative/Plan: resolving Current Visit: Yes Status: Acute Code(s): R79.89 - OTHER SPECIFIED ABNORMAL FINDINGS OF BLOOD CHEMISTRY SNOMED Code(s): 265316054 (3) CAP (community acquired pneumonia) Narrative/Plan: antibiotic therapy Current Visit: No Status: Acute Code(s): J18.9 - PNEUMONIA, UNSPECIFIED ORGANISM SNOMED Code(s): 940628994 (4) Sepsis Narrative/Plan: improved Current Visit: No Status: Acute Code(s): A41.9 - SEPSIS, UNSPECIFIED ORGANISM SNOMED Code(s): 57391682 Time with Patient: Greater than 30
--- NOTE | 2024-08-19 09:10 | P.CNOR ---
History of Present Illness - [facility] Consult date: 08/19/24 Consult reason: low back pain (L3-4 possible discitis osteomyelitis) History of present illness: Patient is a very pleasant 48-year-old male well-known to our service who is seen examined at bedside for further evaluation of his lumbar spine. He is previously seen in the outpatient setting where lumbar MRI imaging was performed. This was just recently performed on 08/11/2024. He had presented to see his primary care provider Dr. France this morning appeared cold, clammy, hypotensive with outpatient labs reporting white count of 21.00, in addition to significant weight loss. Patient was sent by EMS to the ER. Lumbar MRI imaging discussed possibility of early discitis. He was admitted for further treatment and evaluation. He states his pain is centered at his lumbar spine along the midline. He has some occasional right hip pain but is not currently experiencing any significant lower extremity weakness or radiculopathy bilaterally. Stat lumbar MRI imaging with contrast is pending. Nursing states this is scheduled to be performed at 930 this morning. He has been seen and examined by Dr. Nieto and infectious disease. He is currently on IV antibiotics. Interventional radiology has been consulted for aspiration. Based on his lab results, he has met criteria for SIRS. Consultation has been placed with medicine and pulmonology for his other medical diagnoses. Patient does admit to significant weight loss unintentionally of approximately 43 pounds over the past 2 months. He is undergoing further testing evaluation with medicine. He does have a significant medical history which includes ongoing nicotine dependence greater than 30 years half pack per day, regular consumption of alcohol 14 beers per week, marijuana use, hypertrophic obstructive cardiomyopathy, and IBS/Crohn's. The patient is seen and examined at bedside. His white count is significantly improved today. He is feeling better. He reports no new changes in his lower extremities. His white count significant improved. I discussed the case with Dr. France as well as with Dr. Nieto. Fine-needle aspirate results are pending Blood cultures are positive for strep species. Final results are pending. MRI results are reviewed. There is significant change and bone reaction at L3- 4. There is significant disc height loss. There is minimal stenosis. There is some foraminal encroachment. There is no evidence of epidural abscess or phlegmon. There is no evidence of psoas abscess. The patient has positive blood cultures and possible discitis L3-4 We are waiting results for his FNA but his blood cultures will help determine appropriate antibiotic regimen. He does not have stenosis or lower extremity neurologic change and I do not plan surgical intervention at this point. Is okay for the patient to mobilize He is continuing his workup and further medical management appropriately Will continue to follow along with you Past Medical History Past Medical History: GERD/Reflux, Hypertension Additional Past Medical History / Comment(s): IBS, DDD lumbar spine. History of Any Multi-Drug Resistant Organisms: None Reported Past Surgical History: Hernia Repair Additional Past Surgical History / Comment(s): EGD, colonoscopy, repair L inguinal hernia, repair umbilical hernia and then repair incarcerated umbilical hernia with mesh. Past Anesthesia/Blood Transfusion Reactions: No Reported Reaction Past Psychological History: No Psychological Hx Reported Smoking Status: Current every day smoker Past Alcohol Use History: Occasional Past Drug Use History: None Reported, Marijuana - Past Family History Father Family Medical History: Cancer, Congestive Heart Failure (CHF), Deep Vein Thrombosis (DVT) Additional Family Medical History / Comment(s): Throat cancer. Father is living. Mother Family Medical History: Congestive Heart Failure (CHF), Deep Vein Thrombosis (DVT) Additional Family Medical History / Comment(s): Mother is living. Sister(s) Family Medical History: Deep Vein Thrombosis (DVT) Medications and Allergies Home Medications Medication Instructions Recorded Confirmed Type Hyoscyamine Sulfate [Levbid] 0.375 mg PO Q12H 04/04/15 08/18/24 History Ibuprofen [Motrin] 800 mg PO TID PRN 04/04/15 08/18/24 History Omeprazole [PriLOSEC] 20 mg PO DAILY 04/04/15 08/18/24 History lisinopriL [Zestril] 20 mg PO BID 04/04/15 08/18/24 History HYDROcodone/APAP 10-325MG [[place] 1 tab PO Q6H PRN 08/18/24 08/18/24 History 10-325] Metoprolol Succinate (ER) [Toprol 100 mg PO DAILY 08/18/24 08/18/24 History Xl] amLODIPine [Norvasc] 2.5 mg PO DAILY 08/18/24 08/18/24 History hydroCHLOROthiazide [Hydrodiuril] 25 mg PO DAILY 08/18/24 08/18/24 History methocarbamoL [Robaxin] 500 mg PO Q8H 08/18/24 08/18/24 History Allergies Allergy/AdvReac Type Severity Reaction Status Date / Time No Known Allergies Allergy Verified 08/18/24 11:54 Physical Examination Osteopathic Statement: *. No significant issues noted on an osteopathic structural exam other than those noted in the History and Physical/Consult. Physical exam: Patient is awake, alert, and oriented 3 Vital signs stable Good chest excursion with deep inspiration and expiration Abdomen soft nontender Examination of lumbar spine reveals skin is intact with no abrasions, lacerations, or bruises; no erythema, purulence or signs of infection Pain with palpation along the midline of the mid lumbar spine Upper thoracic tattoo Dorsiflexion, plantarflexion, and extensor hallucis longus positive sustained bilaterally Lower extremity strength 5/5 bilaterally Patellar reflex 2+ bilaterally and Achilles reflexes 2+ bilaterally No lower extremity hyperreflexia bilaterally Straight leg test negative bilateral lower extremities No signs or symptoms of DVT; no calf pain No pain with internal and external rotation of the hips bilaterally Neurovascularly intact Results Pertinent studies: MRI of the lumbar spine taken at [facility] on 08/11/2024 without contrast: Endplate STIR hypertrophy identified at L3-4 with some T2 STIR hyperintensity at this level with prominent Modic endplate change which could be possible early discitis/osteomyelitis; L3-4 degenerative disc disease, disc bulge, facet spondylosis, and left subarticular foraminal disc osteophyte complex with mild spinal canal stenosis with bilateral neuroforaminal narrowing greater on the left than the right; L4-5 degenerative disc disease, diffuse disc bulging and spurring with moderate left and mild right neuroforaminal narrowing; L5-S1 facet hypertrophy with spurring with mild left neuroforaminal narrowing; no significant central canal stenosis - Labs Labs: Abnormal Lab Results - Last 24 Hours (Table) 08/18/24 08/18/24 08/18/24 Range/Units 11:35 11:35 11:35 WBC 22.02 H (4.50-10.00) 10*3/uL RBC (4.40-5.60) 10*6/uL Hgb (13.0-17.0) g/dL Hct (39.6-50.0) % MPV 9.3 L (9.5-12.2) fL Immature Gran # 0.20 H (0.00-0.04) 10*3/uL Neutrophils # 19.12 H (1.80-7.70) 10*3/uL Eosinophils # 0.02 L (0.04-0.35) 10*3/uL ESR (0-15) mm/Hr Sodium 131 L (137-145) mmol/L Chloride 94 L (98-107) mmol/L BUN 30 H (9-20) mg/dL Creatinine 1.36 H (0.66-1.25) mg/dL Glucose 161 H (74-99) mg/dL Plasma Lactic Acid Stuart 2.6 H* (0.7-2.0) mmol/L C-Reactive Protein (<1.0) mg/dL 08/18/24 08/18/24 08/19/24 Range/Units 13:14 14:32 03:57 WBC 16.08 H (4.50-10.00) 10*3/uL RBC 3.95 L 3.44 L (4.40-5.60) 10*6/uL Hgb 11.9 L 10.2 L (13.0-17.0) g/dL Hct 33.8 L 29.8 L (39.6-50.0) % MPV 9.3 L (9.5-12.2) fL Immature Gran # 0.14 H 0.05 H (0.00-0.04) 10*3/uL Neutrophils # 13.50 H (1.80-7.70) 10*3/uL Eosinophils # 0.01 L (0.04-0.35) 10*3/uL ESR 33 H (0-15) mm/Hr Sodium (137-145) mmol/L Chloride (98-107) mmol/L BUN (9-20) mg/dL Creatinine (0.66-1.25) mg/dL Glucose (74-99) mg/dL Plasma Lactic Acid Stuart (0.7-2.0) mmol/L C-Reactive Protein 8.6 H (<1.0) mg/dL 08/19/24 Range/Units 03:57 WBC (4.50-10.00) 10*3/uL RBC (4.40-5.60) 10*6/uL Hgb (13.0-17.0) g/dL Hct (39.6-50.0) % MPV (9.5-12.2) fL Immature Gran # (0.00-0.04) 10*3/uL Neutrophils # (1.80-7.70) 10*3/uL Eosinophils # (0.04-0.35) 10*3/uL ESR (0-15) mm/Hr Sodium 128 L (137-145) mmol/L Chloride (98-107) mmol/L BUN 21 H (9-20) mg/dL Creatinine (0.66-1.25) mg/dL Glucose (74-99) mg/dL Plasma Lactic Acid Stuart (0.7-2.0) mmol/L C-Reactive Protein (<1.0) mg/dL Microbiology - Last 24 Hours (Table) 08/18/24 12:21 Blood Culture Gram Stain - Preliminary Blood Blood Culture - Preliminary Molecular ID H & H 08/18/24 08/18/24 08/19/24 Range/Units 11:35 14:32 03:57 Hgb 13.7 11.9 L 10.2 L (13.0-17.0) g/dL Hct 40.0 33.8 L 29.8 L (39.6-50.0) % Coagulation 08/18/24 Range/Units 11:35 INR 1.1 (<1.2) Result Diagrams: 08/19/24 03:57 08/19/24 03:57 Assessment and Plan Assessment: Assessment: Possible lumbar discitis at L3-4 L3-4 and L4-5 lumbar degenerative disc disease Lumbar spondylosis Sepsis Elevated serum creatinine Leukocytosis, significantly improved Nicotine dependence greater than 30 years half pack per day Regular consumption of alcohol 14 beers per week Marijuana use Hypertrophic obstructive cardiomyopathy IBS/Crohn's Unintentional weight loss of 43 pounds over the past 2 months (1) Low back pain Current Visit: Yes Status: Acute Code(s): M54.50 - LOW BACK PAIN, UNSPECIFIED SNOMED Code(s): 331960949 (2) Lumbar facet arthropathy Current Visit: Yes Status: Acute Code(s): M47.816 - SPONDYLOSIS W/O MYELOPATHY OR RADICULOPATHY, LUMBAR REGION SNOMED Code(s): 034210807 (3) Lumbar degenerative disc disease Current Visit: Yes Status: Acute Code(s): M51.369 - OTH INTVRT DISC DEGEN, LUM RGN W/O LUM BCK OR LW EXTRM PAIN SNOMED Code(s): 72104681 (4) Marijuana use Current Visit: Yes Status: Acute Code(s): F12.90 - CANNABIS USE, UNSPECIFIED, UNCOMPLICATED SNOMED Code(s): 878551264 (5) Smoker Current Visit: Yes Status: Acute Code(s): F17.200 - NICOTINE DEPENDENCE, UNSPECIFIED, UNCOMPLICATED SNOMED Code(s): 89037812 (6) Alcohol use Current Visit: Yes Status: Acute Code(s): Z78.9 - SNOMED Code(s): 504140 (7) Crohn's disease Current Visit: Yes Status: Acute Code(s): K50.90 - CROHN'S DISEASE, UNSPECIFIED, WITHOUT COMPLICATIONS SNOMED Code(s): 70338256 (8) Unintentional weight loss Current Visit: Yes Status: Acute Code(s): R63.4 - SNOMED Code(s): 939698459 (9) Hypertrophic obstructive cardiomyopathy Current Visit: Yes Status: Acute Code(s): I42.1 - OBSTRUCTIVE HYPERTROPHIC CARDIOMYOPATHY SNOMED Code(s): 56757348 (10) Sleep apnea Current Visit: Yes Status: Acute Code(s): G47.30 - SLEEP APNEA, UNSPECIFIED SNOMED Code(s): 70676756 (11) Discitis Current Visit: Yes Status: Acute Code(s): M46.40 - DISCITIS, UNSPECIFIED, SITE UNSPECIFIED SNOMED Code(s): 9132682 (12) Elevated serum creatinine Current Visit: Yes Status: Acute Code(s): R79.89 - SNOMED Code(s): 699613675 (13) Sepsis Current Visit: No Status: Acute Code(s): A41.9 - SEPSIS, UNSPECIFIED ORGANISM SNOMED Code(s): 06400215 Plan: Plan: 1. Patient has had worsening low back pain. He is not currently experiencing any neurologic change in his lower extremities. He denies any lower extremity weakness or radiculopathy bilaterally. He had lumbar MRI imaging without contrast taken on 08/11/2024 which showed possible early discitis osteomyelitis at L3-4. He had presented to his primary care provider appearing cold, clammy, hypotensive, and elevated WBC. He was admitted to [facility] for further evaluation. He also has had unintentional weight loss of ap proximately 43 pounds over the past 2 months. He is currently being seen examined by infectious disease. He is on antibiotics currently. Interventional radiology has been consulted for aspiration of the L3-4 disc space. Lumbar MRI imaging with and without contrast is scheduled for today. We will plan to follow-up with the patient following completion of his MRI and results to discuss further treatment options. Currently, we are planning to continue with conservative treatment. We would plan to continue with antibiotics per the recommendations of infectious disease. 2. Patient will continue be seen and examined by multiple other providers. Consultation has also been placed with cardiology and pulmonology Time with Patient: Greater than 30 (Including obtaining history, physical examination, reviewing of imaging, and dictation.)
--- NOTE | 2024-08-19 12:00 | P.CNPUL ---
History of Present Illness Consult date: 08/19/24 Requesting physician: Darren France Jr Reason for consult: obstructive sleep apnea Chief complaint: Back pain History of present illness: This is a very pleasant 48-year-old male patient with a known history of chronic and ongoing tobacco dependence, hypertension, gastroesophageal reflux disease, irritable bowel syndrome, hypertrophic obstructive cardiomyopathy, degenerative disc disease in the lumbar spine. He had recently fallen and injured his back back in June. He had recently had a MRI done that showed a possible infection. He was seen by his PCP yesterday who found his white count to be elevated and his blood pressure low and was referred here to the emergency room for the same. Chest x-ray shows no acute cardiopulmonary process. MRI of the lumbar spine is pending. White count 8.2. Hemoglobin 10.2. Platelets 173. Sodium 128. Potassium 3.5. Bicarb 27. BUN 21. Creatinine 0.81. Urinalysis was clear. Serum alcohol level less than 10. He has been initiated on ceftriaxone and daptomycin. We were consulted regarding his sleep apnea. He does have an AHI of 32.6. He has CPAP at home. He was hoping to get a new device. He is seen today in consultation on the regular medical floor. He is awake and alert in no acute distress. Maintaining O2 saturations in the 90s on room air oxygen. No shortness of breath, cough or congestion. No fever or chills. Afebrile. Hemodynamically stable. Review of Systems REVIEW OF SYSTEMS: CONSTITUTIONAL: Denies any recent significant weight loss or weight gain. EYES: Denies change in vision. EARS, NOSE, MOUTH, THROAT: Denies headaches, denies sore throat. CARDIOVASCULAR: Denies chest pain, palpitations or syncopal episodes. RESPIRATORY: Denies shortness of breath, cough, congestion or hemoptysis. GASTROINTESTINAL: Denies change in appetite, denies abdominal pain GENITOURINARY: Denies hematuria, denies infections. MUSKULOSKELETAL: Positive for back pain. INTEGUMENTARY: Denies rash, denies eczema. NEUROLOGICAL: Denies recent memory loss, no recent seizure activity. PSYCHIATRIC: Denies anxiety, denies depression. HEMATOLOGIC/LYMPHATIC: Denies anemia, denies enlarged lymph nodes. Past Medical History Past Medical History: GERD/Reflux, Hypertension Additional Past Medical History / Comment(s): IBS, DDD lumbar spine. History of Any Multi-Drug Resistant Organisms: None Reported Past Surgical History: Hernia Repair Additional Past Surgical History / Comment(s): EGD, colonoscopy, repair L inguinal hernia, repair umbilical hernia and then repair incarcerated umbilical hernia with mesh. Past Anesthesia/Blood Transfusion Reactions: No Reported Reaction Past Psychological History: No Psychological Hx Reported Smoking Status: Current every day smoker Past Alcohol Use History: Occasional Past Drug Use History: None Reported, Marijuana - Past Family History Father Family Medical History: Cancer, Congestive Heart Failure (CHF), Deep Vein Thrombosis (DVT) Additional Family Medical History / Comment(s): Throat cancer. Father is caesar ellison. Mother Family Medical History: Congestive Heart Failure (CHF), Deep Vein Thrombosis (DVT) Additional Family Medical History / Comment(s): Mother is living. Sister(s) Family Medical History: Deep Vein Thrombosis (DVT) Medications and Allergies Home Medications Medication Instructions Recorded Confirmed Type Hyoscyamine Sulfate [Levbid] 0.375 mg PO Q12H 04/04/15 08/18/24 History Ibuprofen [Motrin] 800 mg PO TID PRN 04/04/15 08/18/24 History Omeprazole [PriLOSEC] 20 mg PO DAILY 04/04/15 08/18/24 History lisinopriL [Zestril] 20 mg PO BID 04/04/15 08/18/24 History HYDROcodone/APAP 10-325MG [[place] 1 tab PO Q6H PRN 08/18/24 08/18/24 History 10-325] Metoprolol Succinate (ER) [Toprol 100 mg PO DAILY 08/18/24 08/18/24 History Xl] amLODIPine [Norvasc] 2.5 mg PO DAILY 08/18/24 08/18/24 History hydroCHLOROthiazide [Hydrodiuril] 25 mg PO DAILY 08/18/24 08/18/24 History methocarbamoL [Robaxin] 500 mg PO Q8H 08/18/24 08/18/24 History Allergies Allergy/AdvReac Type Severity Reaction Status Date / Time No Known Allergies Allergy Verified 08/18/24 11:54 Physical Exam Vitals: Vital Signs Temp Pulse Pulse Resp BP BP BP 08/19/24 11:34 98 16 114/78 08/19/24 06:53 97.6 F 83 18 100/52 08/19/24 04:10 102/60 08/19/24 01:40 98.4 F 76 18 93/45 08/18/24 19:25 98.7 F 85 18 101/65 08/18/24 16:43 98.5 F 75 16 105/66 08/18/24 16:23 98.7 F 76 20 104/56 08/18/24 15:13 99.1 F 75 18 98/61 08/18/24 14:00 74 18 102/62 08/18/24 12:58 75 18 116/69 08/18/24 12:26 78 18 99/65 08/18/24 12:02 79 20 85/63 Pulse Ox 08/19/24 11:34 97 08/19/24 06:53 100 08/19/24 04:10 08/19/24 01:40 100 08/18/24 19:25 96 08/18/24 16:43 98 08/18/24 16:23 97 08/18/24 15:13 97 08/18/24 14:00 97 08/18/24 12:58 98 08/18/24 12:26 97 08/18/24 12:02 96 Intake and Output 08/18/24 08/19/24 08/19/24 22:59 06:59 14:59 Intake Total 200 720 Balance 200 720 Intake: Oral 200 720 Other: # Voids 4 Weight 83.915 kg GENERAL EXAM: Alert, very pleasant 48-year-old male, on room air, fairly comfortable in no apparent distress. HEAD: Normocephalic. EYES: Normal reaction of pupils, equal size. NOSE: Clear with pink turbinates. THROAT: No erythema or exudates. NECK: No masses, no JVD. CHEST: No chest wall deformity. LUNGS: Equal air entry with no crackles, wheeze, rhonchi or dullness. CVS: S1 and S2 normal with no audible murmur, regular rhythm. ABDOMEN: No hepatosplenomegaly, normal bowel sounds, no guarding or rigidity. SPINE: No scoliosis or deformity SKIN: No rashes CENTRAL NERVOUS SYSTEM: No focal deficits, tone is normal in all 4 extremities. EXTREMITIES: There is no peripheral edema. No clubbing, no cyanosis. Peripheral pulses are intact. Results - Laboratory Findings CBC and BMP: 08/19/24 03:57 08/19/24 03:57 PT/INR, D-dimer PT 11.5 sec (10.0-12.5) 08/18/24 11:35 INR 1.1 (<1.2) 08/18/24 11:35 Abnormal lab findings: Abnormal Labs 08/18/24 08/18/24 08/18/24 11:35 11:35 11:35 WBC 22.02 H RBC Hgb Hct MPV 9.3 L Immature Gran # 0.20 H Neutrophils # 19.12 H Eosinophils # 0.02 L ESR Sodium 131 L Chloride 94 L BUN 30 H Creatinine 1.36 H Glucose 161 H Plasma Lactic Acid Stuart 2.6 H* C-Reactive Protein 08/18/24 08/18/24 08/19/24 13:14 14:32 03:57 WBC 16.08 H RBC 3.95 L 3.44 L Hgb 11.9 L 10.2 L Hct 33.8 L 29.8 L MPV 9.3 L Immature Gran # 0.14 H 0.05 H Neutrophils # 13.50 H Eosinophils # 0.01 L ESR 33 H Sodium Chloride BUN Creatinine Glucose Plasma Lactic Acid Stuart C-Reactive Protein 8.6 H 08/19/24 03:57 WBC RBC Hgb Hct MPV Immature Gran # Neutrophils # Eosinophils # ESR Sodium 128 L Chloride BUN 21 H Creatinine Glucose Plasma Lactic Acid Stuart C-Reactive Protein - Diagnostic Findings Chest x-ray: image reviewed Assessment and Plan Assessment: Back pain in a patient with suspected discitis, MRI pending History of back injury and June 2024 History of obstructive sleep apnea with an AHI of 32.6 maintained on CPAP in the outpatient setting Chronic and ongoing tobacco dependence History of hypertension History of gastroesophageal reflux disease no history History of irritable bowel syndrome History of degenerative disc disease in the lumbar spine Plan: The patient was seen and evaluated Chest x-ray, labs and medications reviewed MRI of the lumbar spine pending Currently on daptomycin and cefepime Stable and on room air oxygen Follow-up with Dr. Simpson regarding a new CPAP machine We will continue to follow and make further recommendations based on his clinical status I have personally seen and examined the patient, performed the documentation and the assessment and plan as written. Number of minutes spent on the visit: 20 Dictation was produced using Fan[employer] software. Please excuse any grammatical, word or spelling errors. Time with Patient: Greater than 30
--- NOTE | 2024-08-19 12:09 | MR ---
EXAMINATION TYPE: MR lumbar spine wo/w con DATE OF EXAM: 08/19/2024 10:18 AM COMPARISON: Radiograph 07/28/2024. CLINICAL INDICATION: Male, 48 years old with history of Discitis L2-3/3-4, Low back pain, Discitis, TECHNIQUE: Multiplanar, multisequence images of the lumbar spine were obtained before and after admin istration of 8 mL intravenous Gadobutrol gadolinium contrast. IV Contrast: 8 cc Gadobutrol (None if empty) FINDINGS: Very heterogeneous marrow signal suggesting extensive red marrow hyperplasia. A matrix hemangioma loc ated within T12 and L1 vertebral bodies. Inferior endplate Schmorl's node L2 with some edema suggesti ng acute to subacute Schmorl's node. Centered at the L3-L4 level, there is severe degenerative disc disease with associated diminished T1- weighted endplate bony signal with corresponding enhancement. The paravertebral soft tissue swelling is present along this region as well as some intradiscal enhancement towards the left. Hypertrophic facet arthropathy with trace grade 1 retrolisthesis L3/L4. Remaining alignment is mainta ined. Mild bulging discs are present at multiple levels impressing onto the ventral thecal sac. No large fo makr disc herniation or significant spinal canal stenosis. Conus medullaris is normal. Annular fissures are present at both L3-L4 L4-L5. No evident abnormal enhancement within the spinal canal. On the right, changes result in mild to moderate neural foraminal stenosis at L4-L5 and mild at multi ple additional levels. On the left, changes result in moderate neural foraminal stenosis at L4-L5 and [id number] at L5 -S1. No abnormal fluid collection is identified. IMPRESSION: 1. Intense osseous edema with associated enhancement and paravertebral soft tissue swelling centered at L3-L4. There is severe degenerative disc disease here. Slight intradiscal enhancement towards the left. Findings concerning for discitis and developing osteomyelitis. The disc space is significantly narrowed and there is not a lot of intradiscal fluid at this time; note that an attempted aspiration may yield limited results. 2. Possible acute or subacute inferior endplate Schmorl's node at L2. 3. Prominent red marrow hyperplasia throughout. 4. Mild multilevel degenerative disc disease with posterior annular fissures at L3-L4 L4-L5. No signi ficant spinal canal stenosis. 5. Moderate left foraminal stenosis at L4-L5 and [id number] on the right. Also, mild to moderat e on the left at L5/S1. [facility], Workstation: [facility], 08/19/2024 12:07 PM
[2024-08-19 12:47] LABS: ALT 17 U/L (4-49); AST 19 U/L (17-59); African American GFR (CKD) >90 (>60 ml/min/1.73 sqM); Albumin 3.5 g/dL (3.5-5.0); Albumin/Globulin Ratio 1.2; Alkaline Phosphatase 76 U/L (38-126); Anion Gap 7 mmol/L; Blood Urea Nitrogen 17 mg/dL (9-20); Calcium 9.2 mg/dL (8.4-10.2); Carbon Dioxide 29 mmol/L (22-30); Chloride 96 mmol/L (98-107); Glucose 113 mg/dL (74-99); Non-African American GFR(CKD) >90 (>60 ml/min/1.73 sqM); Potassium 3.7 mmol/L (3.5-5.1); Sodium 132 mmol/L (137-145); Total Bilirubin 0.9 mg/dL (0.2-1.3); Total Protein 6.5 g/dL (6.3-8.2)
--- NOTE | 2024-08-19 12:49 | CT ---
EXAMINATION TYPE: CT disc aspiration DATE OF EXAM: 08/19/2024 COMPARISON: MRI 08/19/2024 CLINICAL INDICATION: Male, 48 years old with history of See IR consult for ordering information; CT DLP: 1474 mGycm The procedure is discussed with the patient, the risks, complications, benefits and alternatives, wer e discussed and any questions were answered. Informed consent was obtained. The patient is placed p albert on the CT table, prepped and draped in the usual sterile fashion. All elements of maximal barri er and sterile technique utilized. Utilizing a 18-gauge core biopsy needle access into L3-L4 disc was achieved under CT guidance. A smal l aspirate obtained. Pathology pending. IMPRESSION: 1. Successful CT L3-L4 disc fine-needle aspiration. [facility], , 08/19/2024 12:46 PM
--- NOTE | 2024-08-19 13:49 | P.CRDCN ---
History of Present Illness Consult date: 08/19/24 Reason for Consult (text): HCM History of present illness: This is a 48-year-old male patient of Dr. Cruz's also has been seen by Dr. Bermeo with past medical history of hypertrophic cardiomyopathy with severe LVOT gradient with Valsalva maneuver, family history of sudden , hypertension, chronic back pain. We have been asked to evaluate the patient for hypertrophic cardiomyopathy. Patient states that he has been feeling weak and lightheaded he had a workup regarding his chronic back pain and he was found to have elevated white count and and to be septic and he is being worked up for discitis. He underwent an MRI today as well as needle aspiration under CT guidance of L3-L4 was done today. Orthopedics, infectious disease and pulmonary medicine are all on consult. Patient is denying any chest pain or chest pressure, no shortness of breath, no palpitations. Blood pressure 110/75, heart rate 92, pulse ox 95% on room air. -EKG: Sinus rhythm with LVH. -Chest x-ray: No acute process. -Laboratory studies: Initial WBC 22 now 8.27, hemoglobin is 10.2, sodium 132, potassium 3.7, creatinine 0.84. Initial lactic acid 2.6 and repeat 1.2. -Home cardiac medications: Amlodipine 2.5 mg daily, hydrochlorothiazide 25 mg daily, lisinopril 20 mg twice daily, metoprolol succinate 100 mg daily. -Event monitor 07/17/2023 - 07/30/2023 revealed sinus rhythm. -Lexiscan Cardiolite stress test performed on 06/19/2023 was aborted due to concerns for hypertrophic cardiomyopathy. EF 55%. -Echocardiogram performed 06/19/2023 revealed EF of 60 to 65%. Grade 2 diastolic dysfunction. Severe left ventricular hypertrophy. Severe HARRY with LVOT obstruction consistent with HOCM. Aortic valve is calcified. Valve thickened and calcified. Mild tricuspid regurgitation, PASP 40 mmHg. Review Of Systems: At the time of my exam: CONSTITUTIONAL: Denies fever or chills. HEENT: Denies blurred vision, vision changes, or eye pain. Denies hemoptysis CARDIOVASCULAR: Denies chest pain. Denies orthopnea. Denies PND. Denies palpitations RESPIRATORY: Denies shortness of breath. GASTROINTESTINAL: Denies abdominal pain. Denies nausea or vomiting. HEMATOLOGIC: Denies bleeding disorders. GENITOURINARY: Denies any blood in urine. SKIN: Denies puritis. Denies rash. Physical examination: Gen: This is a 48-year-old male in no acute respiratory distress. VS: reviewed HEENT: Head is atraumatic, normocephalic. Pupils equal, round. Sclerae is an icteric. NECK: Supple. No JVD. LUNGS: Clear to auscultation. No wheezes or rhonchi. No intercostal retractions. HEART: Regular rate and rhythm. Systolic murmur. ABDOMEN: Soft No tenderness. EXTREMITIES: No pedal edema. No calf tenderness. NEUROLOGICAL: Patient is awake, alert and oriented x3. Assessment: Hypertrophic cardiomyopathy Leukocytosis Lactic acidosis Suspected discitis status post needle aspiration Chronic back pain with injury June 2024 Hypertension Obstructive sleep apnea on CPAP Chronic tobacco use and dependence Plan: Resume patient's home cardiac medications with the following changes Discontinue hydrochlorothiazide Avoid diuretics No further cardiac workup at this time Further recommendations to follow based upon clinical course Thank you kindly for this consultation. Nurse practitioner note has been reviewed, I agree with documented findings and plan of care. Patient was seen and examined. Past Medical History Past Medical History: GERD/Reflux, Hypertension Additional Past Medical History / Comment(s): IBS, DDD lumbar spine. History of Any Multi-Drug Resistant Organisms: None Reported Past Surgical History: Hernia Repair Additional Past Surgical History / Comment(s): EGD, colonoscopy, repair L inguinal hernia, repair umbilical hernia and then repair incarcerated umbilical hernia with mesh. Past Anesthesia/Blood Transfusion Reactions: No Reported Reaction Past Psychological History: No Psychological Hx Reported Smoking Status: Current every day smoker Past Alcohol Use History: Occasional Past Drug Use History: None Reported, Marijuana - Past Family History Father Family Medical History: Cancer, Congestive Heart Failure (CHF), Deep Vein Thrombosis (DVT) Additional Family Medical History / Comment(s): Throat cancer. Father is living. Mother Family Medical History: Congestive Heart Failure (CHF), Deep Vein Thrombosis (DVT) Additional Family Medical History / Comment(s): Mother is living. Sister(s) Family Medical History: Deep Vein Thrombosis (DVT) Medications and Allergies Home Medications Medication Instructions Recorded Confirmed Type Hyoscyamine Sulfate [Levbid] 0.375 mg PO Q12H 04/04/15 08/18/24 History Ibuprofen [Motrin] 800 mg PO TID PRN 04/04/15 08/18/24 History Omeprazole [PriLOSEC] 20 mg PO DAILY 04/04/15 08/18/24 History lisinopriL [Zestril] 20 mg PO BID 04/04/15 08/18/24 History HYDROcodone/APAP 10-325MG [[place] 1 tab PO Q6H PRN 08/18/24 08/18/24 History 10-325] Metoprolol Succinate (ER) [Toprol 100 mg PO DAILY 08/18/24 08/18/24 History Xl] amLODIPine [Norvasc] 2.5 mg PO DAILY 08/18/24 08/18/24 History hydroCHLOROthiazide [Hydrodiuril] 25 mg PO DAILY 08/18/24 08/18/24 History methocarbamoL [Robaxin] 500 mg PO Q8H 08/18/24 08/18/24 History Allergies Allergy/AdvReac Type Severity Reaction Status Date / Time No Known Allergies Allergy Verified 08/18/24 11:54 Physical Exam Vitals: Vital Signs Temp Pulse Pulse Resp BP BP Pulse Ox 08/19/24 06:53 97.6 F 83 18 100/52 100 08/19/24 04:10 102/60 08/19/24 01:40 98.4 F 76 18 93/45 100 08/18/24 19:25 98.7 F 85 18 101/65 96 08/18/24 16:43 98.5 F 75 16 105/66 98 08/18/24 16:23 98.7 F 76 20 104/56 97 08/18/24 15:13 99.1 F 75 18 98/61 97 08/18/24 14:00 74 18 102/62 97 08/18/24 12:58 75 18 116/69 98 08/18/24 12:26 78 18 99/65 97 08/18/24 12:02 79 20 85/63 96 Intake and Output 08/18/24 08/19/24 08/19/24 22:59 06:59 14:59 Intake Total 200 720 Balance 200 720 Intake: Oral 200 720 Other: # Voids 4 Weight 83.915 kg Results 08/19/24 03:57 08/19/24 12:13 Cardiac Enzymes 08/18/24 Range/Units 11:35 AST 19 (17-59) U/L Coagulation 08/18/24 Range/Units 11:35 PT 11.5 (10.0-12.5) sec APTT 22.7 (22.0-30.0) sec CBC 08/18/24 08/18/24 08/19/24 Range/Units 11:35 14:32 03:57 WBC 22.02 H 16.08 H 8.27 (4.50-10.00) 10*3/uL RBC 4.68 3.95 L 3.44 L (4.40-5.60) 10*6/uL Hgb 13.7 11.9 L 10.2 L (13.0-17.0) g/dL Hct 40.0 33.8 L 29.8 L (39.6-50.0) % Plt Count 260 207 173 (140-440) 10*3/uL Comprehensive Metabolic Panel 08/18/24 08/19/24 Range/Units 11:35 03:57 Sodium 131 L 128 L (137-145) mmol/L Potassium 3.7 3.5 (3.5-5.1) mmol/L Chloride 94 L 99 (98-107) mmol/L Carbon Dioxide 27 27 (22-30) mmol/L BUN 30 H 21 H (9-20) mg/dL Creatinine 1.36 H 0.81 (0.66-1.25) mg/dL Glucose 161 H 91 (74-99) mg/dL Calcium 9.2 8.5 (8.4-10.2) mg/dL AST 19 (17-59) U/L ALT 19 (4-49) U/L Alkaline Phosphatase 94 (38-126) U/L Total Protein 7.0 (6.3-8.2) g/dL Albumin 3.9 (3.5-5.0) g/dL Current Medications Generic Name Dose Route Start Last Admin Trade Name Freq PRN Reason Stop Dose Admin Hydrocodone Bitart/Acetaminophen 1 each 08/18/24 20:01 08/19/24 05:27 Hydrocodone/Apap 10-325mg 1 Each Tab PO 1 each Q6HR PRN Administration Pain Amlodipine Besylate 2.5 mg 08/18/24 20:15 08/18/24 22:25 Amlodipine 2.5 Mg Tab PO Not Given DAILY GEORGES Hydrochlorothiazide 25 mg 08/18/24 20:00 08/18/24 22:25 Hydrochlorothiazide 25 Mg Tab PO Not Given DAILY GEORGES Hydromorphone HCl 0.5 mg 08/18/24 14:14 08/19/24 04:15 Hydromorphone 0.5 Mg/0.5 Ml Syringe IVP 0.5 mg Q4HR PRN Administration Pain Hyoscyamine 0.375 mg 08/18/24 21:00 08/18/24 22:26 Hyoscyamine Sulfate 0.375 Mg Tab.Er.12h PO 0.375 mg BID GEORGES Administration Ceftriaxone Sodium 2 gm/ 50 mls @ 100 mls/hr 08/19/24 11:00 Dextrose/Water IVPB Q24HR GEORGES Lisinopril 20 mg 08/18/24 20:15 08/18/24 22:25 Lisinopril 20 Mg Tab PO Not Given DAILY GEORGES Lorazepam 1 mg 08/18/24 15:46 Lorazepam 1 Mg/0.5 Ml Vial IV Q1HR PRN CIWA 10 to 15 Lorazepam 1 mg 08/18/24 15:46 Lorazepam 1 Mg/0.5 Ml Vial IV Q2HR PRN CIWA 8 or 9 Lorazepam 2 mg 08/18/24 15:46 Lorazepam 1 Mg/0.5 Ml Vial IV 08/20/24 15:47 Q10M PRN CIWA 16 or higher Methocarbamol 500 mg 08/18/24 22:00 08/18/24 22:26 Methocarbamol 500 Mg Tab PO 500 mg QID GEORGES Administration Metoprolol Tartrate 100 mg 08/18/24 20:15 08/18/24 22:25 Metoprolol Tartrate 50 Mg Tab PO Not Given DAILY GEORGES Pantoprazole Sodium 40 mg 08/18/24 13:00 08/18/24 13:17 Pantoprazole 40 Mg/10 Ml Vial IVP 40 mg DAILY GEORGES Administration Intake and Output 08/18/24 08/19/24 08/19/24 22:59 06:59 14:59 Intake Total 200 720 Balance 200 720 Intake: Oral 200 720 Other: # Voids 4 Weight 83.915 kg 08/19/24 03:57 08/19/24 03:57
[2024-08-19] MEDS: cefTRIAXone 2 GM in DEXTROSE 5% IN WATER 50 ML IVPB SCH (14:14)
--- NOTE | 2024-08-19 16:08 | P.PN ---
Subjective Progress Note Date: 08/19/24 Principal diagnosis: Reason for follow-up with discitis and bacteremia Patient is a 48-year-old male with a past medical history significant for reflux hypertension IBS degenerative disc disease to the lumbar spine has been dealing with lower back pain since June 2024 with recent worsening and outpatient MRI suspicious for discitis admitted to hospital with worsening symptom and white count. On today's evaluation that is 08/19/2024, the patient is afebrile, the patient is on room air and breathing comfortably, the Pt denies having any chest pain or cough, the patient denies having any abdominal pain no vomiting or any diarrhea pain to the lower back controlled with pain medication. Patient vital normalized 8.27, creatinine 0.84 blood culture positive for strep Objective - Vital Signs Vital signs: Vital Signs Temp 97.6 F 08/19/24 06:53 Pulse 92 08/19/24 12:10 Resp 18 08/19/24 12:10 BP 110/75 08/19/24 12:10 Pulse Ox 95 08/19/24 12:10 FiO2 Intake & Output 08/18/24 08/19/24 08/19/24 18:59 06:59 18:59 Intake Total 200 720 Balance 200 720 Weight 83.915 kg Intake: Oral 200 720 Other: # Voids 4 - Exam GENERAL DESCRIPTION: Middle-age male lying in bed in no distress RESPIRATORY SYSTEM: Unlabored breathing , decreased breath sounds at bases HEART: S1 S2 regular rate and rhythm , ABDOMEN: Soft , no tenderness EXTREMITIES: No edema feet - Labs CBC & Chem 7: 08/19/24 03:57 08/19/24 12:13 Labs: Abnormal Lab Results - Last 24 Hours (Table) 08/18/24 08/18/24 08/19/24 Range/Units 13:14 14:32 03:57 WBC 16.08 H (4.50-10.00) 10*3/uL RBC 3.95 L 3.44 L (4.40-5.60) 10*6/uL Hgb 11.9 L 10.2 L (13.0-17.0) g/dL Hct 33.8 L 29.8 L (39.6-50.0) % MPV 9.3 L (9.5-12.2) fL Immature Gran # 0.14 H 0.05 H (0.00-0.04) 10*3/uL Neutrophils # 13.50 H (1.80-7.70) 10*3/uL Eosinophils # 0.01 L (0.04-0.35) 10*3/uL ESR 33 H (0-15) mm/Hr Sodium (137-145) mmol/L Chloride (98-107) mmol/L BUN (9-20) mg/dL Glucose (74-99) mg/dL C-Reactive Protein 8.6 H (<1.0) mg/dL 08/19/24 08/19/24 Range/Units 03:57 12:13 WBC (4.50-10.00) 10*3/uL RBC (4.40-5.60) 10*6/uL Hgb (13.0-17.0) g/dL Hct (39.6-50.0) % MPV (9.5-12.2) fL Immature Gran # (0.00-0.04) 10*3/uL Neutrophils # (1.80-7.70) 10*3/uL Eosinophils # (0.04-0.35) 10*3/uL ESR (0-15) mm/Hr Sodium 128 L 132 L (137-145) mmol/L Chloride 96 L (98-107) mmol/L BUN 21 H (9-20) mg/dL Glucose 113 H (74-99) mg/dL C-Reactive Protein (<1.0) mg/dL Microbiology - Last 24 Hours (Table) 08/18/24 12:21 Blood Culture Gram Stain - Preliminary Blood Blood Culture - Preliminary Molecular ID Assessment and Plan (1) Discitis Current Visit: Yes Status: Acute Code(s): M46.40 - DISCITIS, UNSPECIFIED, SITE UNSPECIFIED SNOMED Code(s): 1866007 (2) Sepsis Current Visit: No Status: Acute Code(s): A41.9 - SEPSIS, UNSPECIFIED ORGANISM SNOMED Code(s): 44342291 (3) Elevated serum creatinine Current Visit: Yes Status: Acute Code(s): R79.89 - OTHER SPECIFIED ABNORMAL FINDINGS OF BLOOD CHEMISTRY SNOMED Code(s): 596131876 (4) Bacteremia Current Visit: Yes Status: Acute Code(s): R78.81 - BACTEREMIA SNOMED Code(s): 7838572 Plan: 1patient presented to hospital with worsening lower back pain in this patient who did have elevated white count elevated lactic acid meeting criteria for SIRS and question of sepsis source would be likely discitis in this patient who did have recent worsening of his chronic back pain and apparently outpatient MRI was suspicious for discitis 2-MRI of the lumbar spine with and without contrast suggestive of discitis/osteomyelitis 3-patient is status post IR aspiration of the affected area for culture 4-blood culture came back positive with strep could be the likely source of this discitis this has been explained detail to the patient 5-I would discontinue cefepime and daptomycin and start the patient on ceftriaxone on the basis of his culture Dictation was produced using [employer] dictation software. please excuse any grammatical, word or spelling errors. Time with Patient: Less than 30
--- NOTE | 2024-08-20 08:54 | P.PN ---
Progress Note - Text Progress Note Date: 08/20/24 The patient is seen and examined at bedside. He is not having any new complaints. He has soreness at his back but has been able to mobilize and void freely. He denies any fevers or chills. He is afebrile overnight. His lower extremities have sustained dorsiflexion plantarflexion lateral. His soreness of his back when he tries to mobilize positions. The MRI is again reviewed. There is no significant stenosis. There is no abscess or phlegmon. There is some increased uptake within the vertebral bodies of L3 and L4 suspicious for infectious process but without any abscess His blood culture came back positive for strep The fine-needle aspiration of the L3-4 disc space does not show any organisms thus far and results are still pending Assessment and plan Bacteremia, acute Low back pain with possible discitis No evidence of lower extremity neurologic decline No evidence of spinal abscess The patient has and has a number of medical issues over the past several months which have been causing issues for him. His white count is responding well and he is on IV antibiotics. He has history of Crohn's disease and that is being managed by medicine as well. He will likely need long-term IV antibiotics and would likely need PICC line once his blood cultures clear. Infectious disease is managing this appropriately. From a spine standpoint he is not having lower extremity neurologic change and he does not have significant stenosis or abscess at the epidural space. I do n ot have plans for surgical intervention for his lumbar spine at this point. I explained this to him. It is okay for him to mobilize. Will try to continue with pain control and continue medical management.
--- NOTE | 2024-08-20 10:44 | P.PN ---
Subjective This is a 48-year-old white male with a history of Crohn's disease. He has been having low back pain since June. He did physical therapy and had MRI which showed evidence of discitis. He is being treated for this. He is currently on ceftriaxone for antibiotic coverage lorazepam for spasm, hydromorphone for pain. He takes metoprolol for his cardiomyopathy. Staff does report some hypotension for the past several days. He denies any chest pain pressure shortness of breath nausea or vomiting. Objective - Vital Signs Vital signs: Vital Signs Temp 98.0 F 08/20/24 01:56 Pulse 73 08/20/24 08:46 Resp 17 08/20/24 01:56 BP 88/52 08/20/24 08:46 Pulse Ox 96 08/20/24 01:56 FiO2 Intake & Output 08/19/24 08/20/24 08/20/24 18:59 06:59 18:59 Output Total 700 Balance -700 Output: Urine 700 Other: # Voids 1 - Exam General: The patient is awake and alert, in no distress, a as long as he does not move. Neck: The neck is supple, there is no thyromegaly, lymphadenopathy, tenderness or JVD. Cardiovascular: S1S2 is normal, There is a regular rate and rhythm. No murmur, rub or gallop is appreciated. Respiratory: Lungs are clear to auscultation bilaterally, respirations are non-labored, breath sounds are equal. Gastrointestinal: Soft, non-distended, non-tender abdomen without masses or organomegaly noted. There is no rebound or guarding present. Bowel sounds are unremarkable. Musculoskeletal: Normal ROM, no tenderness, There is no pedal edema. There is no calf tenderness or swelling. No cords were appreciated. Neurological: CN II-XII intact, there are no obvious motor or sensory deficits. Coordination appears grossly intact. Speech is normal. Skin: Skin is warm and dry and no rashes or lesions are noted. - Labs CBC & Chem 7: 08/19/24 03:57 08/19/24 12:13 Labs: Abnormal Lab Results - Last 24 Hours (Table) 08/19/24 Range/Units 12:13 Sodium 132 L (137-145) mmol/L Chloride 96 L (98-107) mmol/L Glucose 113 H (74-99) mg/dL Microbiology - Last 24 Hours (Table) 08/19/24 12:19 Gram Stain - Preliminary Aspirate 08/18/24 12:21 Blood Culture Gram Stain - Preliminary Blood Blood Culture - Preliminary Molecular ID Assessment and Plan Plan: Acute on chronic low back pain suspect discitis with possible osteomyelitis: Orthopedics has seen him and do not believe he needs any advanced intervention at this time, infectious diseases following. Hypotension: Possibly related to sepsis, also his cardiomyopathy may be playing a factor we will reduce his metoprolol at this time. Severe obstructive sleep apnea: Monitor Hypertrophic obstructive cardiomyopathy: Cardiology seen him no further recommendations at this time, Tobaccoism: No monitor he is smoke-free at this time Crohn's disease: Currently stable for patient Dr. Gentile. Plan will continue IV antibiotics he is already went a radiological guided aspiration of the spine to evaluate his bacteria, he remains on ceftriaxone, further recommendations from the consultants, reevaluate next 24 hours
--- NOTE | 2024-08-20 10:51 | P.PN ---
Subjective Progress Note Date: 08/20/24 This is a very pleasant 48-year-old male patient with a known history of chronic and ongoing tobacco dependence, hypertension, gastroesophageal reflux disease, irritable bowel syndrome, hypertrophic obstructive cardiomyopathy, degenerative disc disease in the lumbar spine. He had recently fallen and injured his back back in June. He had recently had a MRI done that showed a possible infection. He was seen by his PCP yesterday who found his white count to be elevated and his blood pressure low and was referred here to the emergency room for the same. Chest x-ray shows no acute cardiopulmonary process. MRI of the lumbar spine is pending. White count 8.2. Hemoglobin 10.2. Platelets 173. Sodium 128. Potassium 3.5. Bicarb 27. BUN 21. Creatinine 0.81. Urinalysis was clear. Serum alcohol level less than 10. He has been initiated on ceftriaxone and daptomycin. We were consulted regarding his sleep apnea. He does have an AHI of 32.6. He has CPAP at home. He was hoping to get a new device. He is seen today in consultation on the regular medical floor. He is awake and alert in no acute distress. Maintaining O2 saturations in the 90s on room air oxygen. No shortness of breath, cough or congestion. No fever or chills. Afebrile. Hemodynamically stable. The patient is seen today August 20, 2024 in follow-up on the regular medical floor. He is currently resting in bed. Awake and alert in no acute distress. Maintaining good O2 saturations in the 90s on room air oxygen. He is continued on ceftriaxone. MR I of the spine did reveal an intense osseous edema with as sociated enhancement and paravertebral soft tissue swelling centered at L3-L4 there is severe degenerative disc disease. Slight intradiscal enhancements towards the left. Findings concerning for discitis and developing osteomyelitis. A fine-needle aspiration was performed. Cultures pending. Blo od culture revealing gram-positive cocci in chains. Today's labs are pending. He is somewhat hypotensive this morning. He was given 1 L of fluid and he has been initiated on normal saline at 75 mL/h. Objective - Vital Signs Vital signs: Vital Signs Temp 98.0 F 08/20/24 01:56 Pulse 73 08/20/24 08:46 Resp 17 08/20/24 01:56 BP 88/52 08/20/24 08:46 Pulse Ox 96 08/20/24 01:56 FiO2 Intake & Output 08/19/24 08/20/24 08/20/24 18:59 06:59 18:59 Output Total 700 Balance -700 Output: Urine 700 Other: # Voids 1 - Exam GENERAL EXAM: Alert, 48-year-old male, on room air oxygen, fairly comfortable in no apparent distress. HEAD: Normocephalic. EYES: Normal reaction of pupils, equal size. NOSE: Clear with pink turbinates. THROAT: No erythema or exudates. NECK: No masses, no JVD. CHEST: No chest wall deformity. LUNGS: Equal air entry with no crackles, wheeze, rhonchi or dullness. CVS: S1 and S2 normal with no audible murmur, regular rhythm. ABDOMEN: No hepatosplenomegaly, normal bowel sounds, no guarding or rigidity. SPINE: No scoliosis or deformity SKIN: No rashes CENTRAL NERVOUS SYSTEM: No focal deficits, tone is normal in all 4 extremities. EXTREMITIES: There is no peripheral edema. No clubbing, no cyanosis. Peripheral pulses are intact. - Labs CBC & Chem 7: 08/19/24 03:57 08/19/24 12:13 Labs: Abnormal Lab Results - Last 24 Hours (Table) 08/19/24 Range/Units 12:13 Sodium 132 L (137-145) mmol/L Chloride 96 L (98-107) mmol/L Glucose 113 H (74-99) mg/dL Microbiology - Last 24 Hours (Table) 08/19/24 12:19 Gram Stain - Preliminary Aspirate 08/18/24 12:21 Blood Culture Gram Stain - Preliminary Blood Blood Culture - Preliminary Molecular ID Assessment and Plan Assessment: Back pain in a patient with discitis, MRI of the spine did reveal an intense osseous edema with associated enhancement and paravertebral soft tissue swelling centered at L3-L4 there is severe degenerative disc disease. Slight intradiscal enhancements towards the left. Findings concerning for discitis and developing osteomyelitis. A fine-needle aspiration was performed 08/19/2024. Cultures pending. Bacteremia secondary to above revealing Gram positive cocci in chains Hypotension secondary to above History of back injury in June 2024 History of obstructive sleep apnea with an AHI of 32.6 maintained on CPAP in the outpatient setting Chronic and ongoing tobacco dependence History of hypertension History of gastroesophageal reflux disease no history History of irritable bowel syndrome History of degenerative disc disease in the lumbar spine Plan: The patient was seen and evaluated Microbiology, imaging and medications reviewed Received 1 L of fluid resuscitation Normal saline at 75 mL/h Continue to monitor blood pressure Currently on ceftriaxone Infectious disease is following Add Lovenox for DVT prophylaxis Protonix for GI prophylaxis This patient was seen independently by the pulmonary nurse practitioner addressing pulmonary issues I have personally seen and examined the patient, performed the documentation and the assessment and plan as written. Number of minutes spent on the visit: 24 Dictation was produced using [employer] dictation software. Please excuse any grammatical, word or spelling errors.
--- NOTE | 2024-08-20 11:32 | P.PN ---
Subjective Progress Note Date: 08/20/24 HCM History of present illness: This is a 48-year-old male patient of Dr. Cruz's also has been seen by Dr. Bermeo with past medical history of hypertrophic cardiomyopathy with severe LVOT gradient with Valsalva maneuver, family history of sudden , hypertension, chronic back pain. We have been asked to evaluate the patient for hypertrophic cardiomyopathy. Patient states that he has been feeling weak and lightheaded he had a workup regarding his chronic back pain and he was found to have elevated white count and and to be septic and he is being worked up for discitis. He underwent an MRI today as well as needle aspiration under CT guidance of L3-L4 was done today. Orthopedics, infectious disease and pulmonary medicine are all on consult. Patient is denying any chest pain or chest pressure, no shortness of breath, no palpitations. Blood pressure 110/75, heart rate 92, pulse ox 95% on room air. -EKG: Sinus rhythm with LVH. -Chest x-ray: No acute process. -Laboratory studies: Initial WBC 22 now 8.27, hemoglobin is 10.2, sodium 132, potassium 3.7, creatinine 0.84. Initial lactic acid 2.6 and repeat 1.2. -Home cardiac medications: Amlodipine 2.5 mg daily, hydrochlorothiazide 25 mg daily, lisinopril 20 mg twice daily, metoprolol succinate 100 mg daily. -Event monitor 07/17/2023 - 07/30/2023 revealed sinus rhythm. -Lexiscan Cardiolite stress test performed on 06/19/2023 was aborted due to concerns for hypertrophic cardiomyopathy. EF 55%. -Echocardiogram performed 06/19/2023 revealed EF of 60 to 65%. Grade 2 diastolic dysfunction. Severe left ventricular hypertrophy. Severe HARRY with LVOT obstruction consistent with HOCM. Aortic valve is calcified. Valve thickened and calcified. Mild tricuspid regurgitation, PASP 40 mmHg. 08/20 Patient seen and examined. Blood pressure readings are low this morning and he did not receive amlodipine nor lisinopril due to parameters. Primary has decreased beta-shawanda to 25 mg daily as well. Patient denies lightheadedness or dizziness. No chest pain no shortness of breath. He does have pain in his back and sometimes it goes down his right leg. Blood pressure 82/49, heart rate 66, pulse ox 98% on room air. Repeat blood work reveals sodium 132, potassium 3.7, BUN 17 creatinine 0.84. Physical examination: Gen: This is a 48-year-old male in no acute respiratory distress. VS: reviewed HEENT: Head is atraumatic, normocephalic. Pupils equal, round. Sclerae is anicteric. NECK: Supple. No JVD. LUNGS: Clear to auscultation. No wheezes or rhonchi. No intercostal retractions. HEART: Regular rate and rhythm. Systolic murmur. ABDOMEN: Soft No tenderness. EXTREMITIES: No pedal edema. No calf tenderness. NEUROLOGICAL: Patient is awake, alert and oriented x3. Assessment: Hypertrophic cardiomyopathy Leukocytosis Lactic acidosis Suspected discitis status post needle aspiration Bacteremia Chronic back pain with injury June 2024 Hypertension Obstructive sleep apnea on CPAP Chronic tobacco use and dependence Plan: Continue patient's home cardiac medications with the following changes Discontinue hydrochlorothiazide, amlodipine, lisinopril Agree with decreasing metoprolol to 25 mg daily Give patient IV fluid bolus of 500 cc followed by 80 cc/h Avoid diuretics Further recommendations to follow based upon clinical course Nurse practitioner note has been reviewed, I agree with documented findings and plan of care. Patient was seen and examined. Objective - Vital Signs Vital signs: Vital Signs Temp 98.0 F 08/20/24 01:56 Pulse 73 08/20/24 08:46 Resp 17 08/20/24 01:56 BP 88/52 08/20/24 08:46 Pulse Ox 96 08/20/24 01:56 FiO2 Intake & Output 08/19/24 08/20/24 08/20/24 18:59 06:59 18:59 Output Total 700 Balance -700 Output: Urine 700 Other: # Voids 1 - Labs CBC & Chem 7: 08/19/24 03:57 08/19/24 12:13 Labs: Abnormal Lab Results - Last 24 Hours (Table) 08/19/24 Range/Units 12:13 Sodium 132 L (137-145) mmol/L Chloride 96 L (98-107) mmol/L Glucose 113 H (74-99) mg/dL Microbiology - Last 24 Hours (Table) 08/19/24 12:19 Gram Stain - Preliminary Aspirate 08/18/24 12:21 Blood Culture Gram Stain - Preliminary Blood Blood Culture - Preliminary Molecular ID
[2024-08-20] MEDS: METOPROLOL TARTRATE 25 MG TAB PO SCH (11:39)
[2024-08-20] MEDS: ENOXAPARIN 40 MG/0.4 ML SYRINGE SQ SCH (11:40)
[2024-08-20] MEDS: SODIUM CHLORIDE 0.9% 1,000 ML IV SCH (11:55)
[2024-08-20] MEDS: SODIUM CHLORIDE 0.9% 500 ML 500 ML IV ONE (11:55)
--- NOTE | 2024-08-20 14:15 | P.PN ---
Subjective Progress Note Date: 08/20/24 Principal diagnosis: Reason for follow-up with discitis and bacteremia Patient is a 48-year-old male with a past medical history significant for reflux hypertension IBS degenerative disc disease to the lumbar spine has been dealing with lower back pain since June 2024 with recent worsening and outpatient MRI suspicious for discitis admitted to hospital with worsening symptom and white count. On today's evaluation that is 08/20/2024, patient did not have any fever and denies any chills, patient is breathing comfortably on room air, patient with no chest pain or cough patient did not have any abdominal pain nausea vomiting or any loose stools, pain to the lower back is currently controlled. Patient did have a creatinine 0.84 white count of 8.27 as of yesterday Objective - Vital Signs Vital signs: Vital Signs Temp 98.1 F 08/20/24 07:19 Pulse 73 08/20/24 08:46 Resp 17 08/20/24 07:19 BP 88/52 08/20/24 08:46 Pulse Ox 98 08/20/24 07:19 FiO2 Intake & Output 08/19/24 08/20/24 08/20/24 18:59 06:59 18:59 Output Total 700 Balance -700 Output: Urine 700 Other: # Voids 1 - Exam GENERAL DESCRIPTION: Middle-age male lying in bed in no distress RESPIRATORY SYSTEM: Unlabored breathing , decreased breath sounds at bases HEART: S1 S2 regular rate and rhythm , ABDOMEN: Soft , no tenderness EXTREMITIES: No edema feet - Labs CBC & Chem 7: 08/19/24 03:57 08/19/24 12:13 Labs: Abnormal Lab Results - Last 24 Hours (Table) 08/19/24 Range/Units 12:13 Sodium 132 L (137-145) mmol/L Chloride 96 L (98-107) mmol/L Glucose 113 H (74-99) mg/dL Microbiology - Last 24 Hours (Table) 08/19/24 12:19 Gram Stain - Preliminary Aspirate 08/18/24 12:21 Blood Culture Gram Stain - Preliminary Blood Blood Culture - Preliminary Molecular ID Assessment and Plan (1) Discitis Current Visit: Yes Status: Acute Code(s): M46.40 - DISCITIS, UNSPECIFIED, SITE UNSPECIFIED SNOMED Code(s): 6526271 (2) Sepsis Current Visit: No Status: Acute Code(s): A41.9 - SEPSIS, UNSPECIFIED ORGANISM SNOMED Code(s): 26245700 (3) Elevated serum creatinine Current Visit: Yes Status: Acute Code(s): R79.89 - OTHER SPECIFIED ABNORMAL FINDINGS OF BLOOD CHEMISTRY SNOMED Code(s): 066696293 (4) Bacteremia Current Visit: Yes Status: Acute Code(s): R78.81 - BACTEREMIA SNOMED Code(s): 2599476 Plan: 1patient presented to hospital with worsening lower back pain in this patient who did have elevated white count elevated lactic acid meeting criteria for SIRS and question of sepsis source would be likely discitis in this patient who did have recent worsening of his chronic back pain and apparently outpatient MRI was suspicious for discitis 2-MRI of the lumbar spine with and without contrast suggestive of discitis/osteomyelitis 3-patient is status post IR aspiration of the affected area for culture which are currently pending 4-blood culture came back positive with strep could be the likely source of this discitis, blood culture have been repeated to document clearance 5-patient is currently being treated with ceftriaxone and monitor clinical course closely Dictation was produced using [employer] dictation software. please excuse any grammatical, word or spelling errors. Time with Patient: Less than 30
--- NOTE | 2024-08-21 09:16 | P.PN ---
Subjective Progress Note Date: 08/21/24 Principal diagnosis: Discitis L3-4. Streptococcus bacteremia. This is a 48-year-old male whom we are following regarding his low back pain. The patient is seen and examined at bedside. He is not having any new complaints. He has soreness at his back but has been able to mobilize and void freely. He denies any fevers or chills. His pulse ox is 98% on room air. He is afebrile overnight. Objective - Vital Signs Vital signs: Vital Signs Temp 97.9 F 08/21/24 07:33 Pulse 86 08/21/24 07:33 Resp 18 08/21/24 07:33 BP 121/83 08/21/24 07:33 Pulse Ox 98 08/21/24 07:33 FiO2 Intake & Output 08/20/24 08/21/24 08/21/24 18:59 06:59 18:59 Output Total 1125 1000 Balance -1125 -1000 Output: Urine 1125 1000 Other: # Voids 1 2 - Exam This is a pleasant 48-year-old male in no acute distress. He is alert and oriented x 3. He is lying comfortably in bed. He is able to sit up on his own in bed with minimal difficulty. His lower extremities have sustained dorsiflexion plantarflexion lateral. No neurologic deficits noted to the lower extremities. - Labs CBC & Chem 7: 08/19/24 03:57 08/19/24 12:13 Labs: Microbiology - Last 24 Hours (Table) 08/19/24 12:19 Gram Stain - Preliminary Aspirate Body Fluid Culture - Preliminary Assessment and Plan (1) Bacteremia Current Visit: Yes Status: Acute Code(s): R78.81 - BACTEREMIA SNOMED Code(s): 2165917 (2) Discitis Current Visit: Yes Status: Acute Code(s): M46.40 - DISCITIS, UNSPECIFIED, SITE UNSPECIFIED SNOMED Code(s): 7430341 (3) Low back pain Current Visit: Yes Status: Acute Code(s): M54.50 - LOW BACK PAIN, UNSPECIFIED SNOMED Code(s): 780790978 Plan: 08/20/2024: The MRI is again reviewed. There is no significant stenosis. There is no abscess or phlegmon. There is some increased uptake within the vertebral bodies of L3 and L4 suspicious for infectious process but without any abscess The patient has and has a number of medical issues over the past several months which have been causing issues for him. His white count is responding well and he is on IV antibiotics. He has history of Crohn's disease and that is being managed by medicine as well. He will likely need long-term IV antibiotics and would likely need PICC line once his blood cultures clear. Infectious disease is managing this appropriately. From a spine standpoint he is not having lower extremity neurologic change and he does not have significant stenosis or abscess at the epidural space. I do not have plans for surgical intervention for his lumbar spine at this point. I explained this to him. It is okay for him to mobilize. Will try to continue with pain control and continue medical management. T
--- NOTE | 2024-08-21 09:25 | P.PN ---
Subjective Progress Note Date: 08/21/24 This is a very pleasant 48-year-old male patient with a known history of chronic and ongoing tobacco dependence, hypertension, gastroesophageal reflux disease, irritable bowel syndrome, hypertrophic obstructive cardiomyopathy, degenerative disc disease in the lumbar spine. He had recently fallen and injured his back back in June. He had recently had a MRI done that showed a possible infection. He was seen by his PCP yesterday who found his white count to be elevated and his blood pressure low and was referred here to the emergency room for the same. Chest x-ray shows no acute cardiopulmonary process. MRI of the lumbar spine is pending. White count 8.2. Hemoglobin 10.2. Platelets 173. Sodium 128. Potassium 3.5. Bicarb 27. BUN 21. Creatinine 0.81. Urinalysis was clear. Serum alcohol level less than 10. He has been initiated on ceftriaxone and daptomycin. We were consulted regarding his sleep apnea. He does have an AHI of 32.6. He has CPAP at home. He was hoping to get a new device. He is seen today in consultation on the regular medical floor. He is awake and alert in no acute distress. Maintaining O2 saturations in the 90s on room air oxygen. No shortness of breath, cough or congestion. No fever or chills. Afebrile. Hemodynamically stable. The patient is seen today August 20, 2024 in follow-up on the regular medical floor. He is currently resting in bed. Awake and alert in no acute distress. Maintaining good O2 saturations in the 90s on room air oxygen. He is continued on ceftriaxone. MR I of the spine did reveal an intense osseous edema with as sociated enhancement and paravertebral soft tissue swelling centered at L3-L4 there is severe degenerative disc disease. Slight intradiscal enhancements towards the left. Findings concerning for discitis and developing osteomyelitis. A fine-needle aspiration was performed. Cultures pending. Blo od culture revealing gram-positive cocci in chains. Today's labs are pending. He is somewhat hypotensive this morning. He was given 1 L of fluid and he has been initiated on normal saline at 75 mL/h. The patient is seen today August 21, 2024 in follow-up on the regular medical floor. He is awake and alert in no acute distress. Sitting up in bed. Denies any worsening shortness of breath, cough or congestion. Maintaining good O2 saturations in the 90s on room air oxygen. His pain is well-managed with Bartlett alternating with Dilaudid as needed. He remains on ceftriaxone. Lovenox for DVT prophylaxis. He is receiving normal saline at 75 mL/h. No new labs today Objective - Vital Signs Vital signs: Vital Signs Temp 97.9 F 08/21/24 07:33 Pulse 86 08/21/24 07:33 Resp 18 08/21/24 07:33 BP 121/83 08/21/24 07:33 Pulse Ox 98 08/21/24 07:33 FiO2 Intake & Output 08/20/24 08/21/24 08/21/24 18:59 06:59 18:59 Output Total 1125 1000 Balance -1125 -1000 Output: Urine 1125 1000 Other: # Voids 1 2 - Exam GENERAL EXAM: Alert, very pleasant 48-year-old male, sitting up in bed, on room air oxygen, comfortable in no apparent distress. HEAD: Normocephalic. EYES: Normal reaction of pupils, equal size. NOSE: Clear with pink turbinates. THROAT: No erythema or exudates. NECK: No masses, no JVD. CHEST: No chest wall deformity. LUNGS: Equal air entry with no crackles, wheeze, rhonchi or dullness. CVS: S1 and S2 normal with a loud audible murmur, regular rhythm. ABDOMEN: No hepatosplenomegaly, normal bowel sounds, no guarding or rigidity. SPINE: No scoliosis or deformity SKIN: No rashes CENTRAL NERVOUS SYSTEM: No focal deficits, tone is normal in all 4 extremities. EXTREMITIES: There is no peripheral edema. No clubbing, no cyanosis. Peripheral pulses are intact. - Labs CBC & Chem 7: 08/19/24 03:57 08/19/24 12:13 Labs: Microbiology - Last 24 Hours (Table) 08/19/24 12:19 Gram Stain - Preliminary Aspirate Body Fluid Culture - Preliminary Assessment and Plan Assessment: Back pain in a patient with discitis, MRI of the spine did reveal an intense osseous edema with associated enhancement and paravertebral soft tissue swelling centered at L3-L4 there is severe degenerative disc disease. Slight intradiscal enhancements towards the left. Findings concerning for discitis and developing osteomyelitis. A fine-needle aspiration was performed 08/19/2024. Cultures pending. Bacteremia secondary to above revealing Gram positive cocci in chains Hypotension secondary to above, improving History of back injury in June 2024 History of obstructive sleep apnea with an AHI of 32.6 maintained on CPAP in the outpatient setting Chronic and ongoing tobacco dependence History of hypertension History of gastroesophageal reflux disease no history History of irritable bowel syndrome History of degenerative disc disease in the lumbar spine Plan: The patient was seen and evaluated Stable and on room air oxygen Blood pressure improving Medications reviewed Normal saline at 75 mL/h Currently on ceftriaxone Infectious disease is following Lovenox for DVT prophylaxis Protonix for GI prophylaxis No plans for surgical intervention per orthopedics This patient was seen independently by the pulmonary nurse practitioner addressing pulmonary issues I have personally seen and examined the patient, performed the documentation and the assessment and plan as written. Number of minutes spent on the visit: 23 Dictation was produced using [employer] dictation software. Please excuse any grammatical, word or spelling errors.
[2024-08-21 09:38] LABS: Basophils # (A) 0.04 X 10*3/uL (0.00-0.10); Basophils % (A) 0.6 %; Eosinophils % (A) 1.4 %; HGB 9.8 g/dL (13.0-17.0); Lymphocytes # (A) 2.55 X 10*3/uL (0.90-5.00); Lymphocytes % (A) 36.8 %; MCHC 31.6 g/dL (32.0-37.0); MCV 91.7 FL (80.0-97.0); Mean Platelet Volume 9.6 FL (9.5-12.2); Monocytes # (A) 0.63 X 10*3/uL (0.20-1.00); Monocytes % (A) 9.1 %; NRBC Per 100 WBC 0 X 10*3/uL (0.00-0.01); Neutrophils # (A) 3.57 X 10*3/uL (1.80-7.70); Neutrophils % (A) 51.5 %; Platelet Count 172 X 10*3/uL (140-440); RBC 3.38 X 10*6/uL (4.40-5.60); RDW 13.6 % (11.5-14.5); WBC 6.93 X 10*3/uL (4.50-10.00)
[2024-08-21 10:17] LABS: ALT 14 U/L (10-49); AST 17 U/L (14-35); Albumin/Globulin Ratio 1.43 Ratio (1.60-3.17); Alkaline Phosphatase 74 U/L (41-126); BUN/Creat Ratio 13.22 Ratio (12.00-20.00); Blood Urea Nitrogen 11.9 mg/dL (9.0-27.0); Calcium 8.2 mg/dL (8.7-10.3); Carbon Dioxide 21.4 mmol/L (21.6-31.8); Chloride 107 mmol/L (96-109); Globulin 2.1 g/dL (1.6-3.3); Glucose 132 mg/dL (70-110); Potassium 4.1 mmol/L (3.5-5.5); Sodium 140 mmol/L (135-145); Total Bilirubin <0.2 mg/dL (0.3-1.2); Total Protein 5.1 g/dL (6.2-8.2)
--- NOTE | 2024-08-21 10:17 | P.PN ---
Subjective This is a 48-year-old white male with a history of Crohn's disease. He has been having low back pain since June. He did physical therapy and had MRI which showed evidence of discitis. He is being treated for this. He is currently on ceftriaxone for antibiotic coverage lorazepam for spasm, hydromorphone for pain. He takes metoprolol for his cardiomyopathy. Staff does report some hypotension for the past several days. He denies any chest pain pressure shortness of breath nausea or vomiting. August 21, 2024: Patient is feeling slightly better today. He remains on ceftriaxone 2 g every 24 hours. He is being followed by infectious disease as well as orthopedics regarding his discitis. He denies any chest pains, pressures or shortness of breath, vitals are stable, he is afebrile. Laboratory studies today show a CBC of 6.93 with no abnormal differential. This is improved from his admission he WBC count of 22,000. Blood cultures are positive for gram cocci in chains, body fluid aspirate is negative Objective - Vital Signs Vital signs: Vital Signs Temp 97.9 F 08/21/24 07:33 Pulse 86 08/21/24 07:33 Resp 18 08/21/24 07:33 BP 121/83 08/21/24 07:33 Pulse Ox 98 08/21/24 07:33 FiO2 Intake & Output 08/20/24 08/21/24 08/21/24 18:59 06:59 18:59 Output Total 1125 1000 Balance -1125 -1000 Output: Urine 1125 1000 Other: # Voids 1 2 - Exam General: The patient is awake and alert, in no distress, a as long as he does not move. Neck: The neck is supple, there is no thyromegaly, lymphadenopathy, tenderness or JVD. Cardiovascular: S1S2 is normal, There is a regular rate and rhythm. No murmur, rub or gallop is appreciated. Respiratory: Lungs are clear to auscultation bilaterally, respirations are non-labored, breath sounds are equal. Gastrointestinal: Soft, non-distended, non-tender abdomen without masses or organomegaly noted. There is no rebound or guarding present. Bowel sounds are unremarkable. Musculoskeletal: Normal ROM, no tenderness, There is no pedal edema. There is no calf tenderness or swelling. No cords were appreciated. Neurological: CN II-XII intact, there are no obvious motor or sensory deficits. Coordination appears grossly intact. Speech is normal. Skin: Skin is warm and dry and no rashes or lesions are noted. - Labs CBC & Chem 7: 08/21/24 02:34 08/19/24 12:13 Labs: Abnormal Lab Results - Last 24 Hours (Table) 08/21/24 Range/Units 02:34 RBC 3.38 L (4.40-5.60) X 10*6/uL Hgb 9.8 L (13.0-17.0) g/dL Hct 31.0 L (39.6-50.0) % MCHC 31.6 L (32.0-37.0) g/dL Microbiology - Last 24 Hours (Table) 08/19/24 12:19 Gram Stain - Preliminary Aspirate Body Fluid Culture - Preliminary Assessment and Plan Plan: Acute on chronic low back pain suspect discitis with possible osteomyelitis: Orthopedics has seen him and do not believe he needs any advanced intervention at this time, infectious diseases following. Hypotension: Possibly related to sepsis, also his cardiomyopathy may be playing a factor we will reduce his metoprolol at this time. Severe obstructive sleep apnea: Monitor Hypertrophic obstructive cardiomyopathy: Cardiology seen him no further recommendations at this time, Tobaccoism: No monitor he is smoke-free at this time Crohn's disease: Currently stable for patient Dr. Gentile. Plan will continue IV antibiotics at this point with his improvement we will plan for PICC line and home IV antibiotics with possible discharge tomorrow if patient is up for it. He will be reevaluated by family medicine in the next 24 hours
--- NOTE | 2024-08-21 10:18 | P.PN ---
Subjective Progress Note Date: 08/21/24 HCM History of present illness: This is a 48-year-old male patient of Dr. Cruz's also has been seen by Dr. Bermeo with past medical history of hypertrophic cardiomyopathy with severe LVOT gradient with Valsalva maneuver, family history of sudden , hypertension, chronic back pain. We have been asked to evaluate the patient for hypertrophic cardiomyopathy. Patient states that he has been feeling weak and lightheaded he had a workup regarding his chronic back pain and he was found to have elevated white count and and to be septic and he is being worked up for discitis. He underwent an MRI today as well as needle aspiration under CT guidance of L3-L4 was done today. Orthopedics, infectious disease and pulmonary medicine are all on consult. Patient is denying any chest pain or chest pressure, no shortness of breath, no palpitations. Blood pressure 110/75, heart rate 92, pulse ox 95% on room air. -EKG: Sinus rhythm with LVH. -Chest x-ray: No acute process. -Laboratory studies: Initial WBC 22 now 8.27, hemoglobin is 10.2, sodium 132, potassium 3.7, creatinine 0.84. Initial lactic acid 2.6 and repeat 1.2. -Home cardiac medications: Amlodipine 2.5 mg daily, hydrochlorothiazide 25 mg daily, lisinopril 20 mg twice daily, metoprolol succinate 100 mg daily. -Event monitor 07/17/2023 - 07/30/2023 revealed sinus rhythm. -Lexiscan Cardiolite stress test performed on 06/19/2023 was aborted due to concerns for hypertrophic cardiomyopathy. EF 55%. -Echocardiogram performed 06/19/2023 revealed EF of 60 to 65%. Grade 2 diastolic dysfunction. Severe left ventricular hypertrophy. Severe HARRY with LVOT obstruction consistent with HOCM. Aortic valve is calcified. Valve thickened and calcified. Mild tricuspid regurgitation, PASP 40 mmHg. 08/20 Patient seen and examined. Blood pressure readings are low this morning and he did not receive amlodipine nor lisinopril due to parameters. Primary has decreased beta-shawanda to 25 mg daily as well. Patient denies lightheadedness or dizziness. No chest pain no shortness of breath. He does have pain in his back and sometimes it goes down his right leg. Blood pressure 82/49, heart rate 66, pulse ox 98% on room air. Repeat blood work reveals sodium 132, potassium 3.7, BUN 17 creatinine 0.84. 08/2019 Patient seen and examined. Patient denies chest pain or chest pressure, no shortness of breath, no dizziness or lightheadedness, no palpitations. Patient had a fluid bolus given yesterday and medications adjusted due to hypotension. Today, blood pressure is 121/83. Heart rate is running in the 70s and 80s. Physical examination: Gen: This is a 48-year-old male in no acute respiratory distress. VS: reviewed HEENT: Head is atraumatic, normocephalic. Pupils equal, round. Sclerae is anicteric. NECK: Supple. No JVD. LUNGS: Clear to auscultation. No wheezes or rhonchi. No intercostal retractions . HEART: Regular rate and rhythm. Systolic murmur. ABDOMEN: Soft No tenderness. EXTREMITIES: No pedal edema. No calf tenderness. NEUROLOGICAL: Patient is awake, alert and oriented x3. Assessment: Hypertrophic cardiomyopathy Leukocytosis Lactic acidosis Suspected discitis status post needle aspiration Bacteremia Chronic back pain with injury June 2024 Hypertension Obstructive sleep apnea on CPAP Chronic tobacco use and dependence Plan: Continue patient's home cardiac medications with the following changes Hold hydrochlorothiazide, amlodipine, lisinopril Increase metoprolol back to home dose of metoprolol succinate 100 mg daily Discontinue IV fluids Avoid diuretics Cardiology will sign off this case and follow on an as-needed basis. Please reconsult for any new concerns. Patient may follow-up in the office in one to [address] Cruz. Nurse practitioner note has been reviewed, I agree with documented findings and plan of care. Patient was seen and examined. Objective - Vital Signs Vital signs: Vital Signs Temp 97.9 F 08/21/24 07:33 Pulse 86 08/21/24 07:33 Resp 18 08/21/24 07:33 BP 121/83 08/21/24 07:33 Pulse Ox 98 08/21/24 07:33 FiO2 Intake & Output 08/20/24 08/21/24 08/21/24 18:59 06:59 18:59 Output Total 1125 1000 Balance -1125 -1000 Output: Urine 1125 1000 Other: # Voids 1 2 - Labs CBC & Chem 7: 08/21/24 02:34 08/19/24 12:13 Labs: Abnormal Lab Results - Last 24 Hours (Table) 08/21/24 Range/Units 02:34 RBC 3.38 L (4.40-5.60) X 10*6/uL Hgb 9.8 L (13.0-17.0) g/dL Hct 31.0 L (39.6-50.0) % MCHC 31.6 L (32.0-37.0) g/dL Microbiology - Last 24 Hours (Table) 08/19/24 12:19 Gram Stain - Preliminary Aspirate Body Fluid Culture - Preliminary
[2024-08-21] MEDS: METOPROLOL SUCCINATE (ER) 50 MG TAB.ER.24H PO STA (11:03)
--- NOTE | 2024-08-21 15:29 | P.PN ---
Subjective Progress Note Date: 08/21/24 Principal diagnosis: Reason for follow-up with discitis and bacteremia Patient is a 48-year-old male with a past medical history significant for reflux hypertension IBS degenerative disc disease to the lumbar spine has been dealing with lower back pain since June 2024 with recent worsening and outpatient MRI suspicious for discitis admitted to hospital with worsening symptom and white count. On today's evaluation that is 08/21/2024, Patient is afebrile patient is currently on room air and denies having any shortness of breath, the patient denies any chest pain or cough, the patient denies any nausea vomiting did not have any abdominal pain and no diarrhea. Pain to the lower back has slight decrease in intensity. Patient white count 6.93 creatinine 0.9 blood culture repeat has been negative so far Objective - Vital Signs Vital signs: Vital Signs Temp 97.9 F 08/21/24 07:33 Pulse 71 08/21/24 10:32 Resp 18 08/21/24 07:33 BP 104/66 08/21/24 10:32 Pulse Ox 98 08/21/24 07:33 FiO2 Intake & Output 08/20/24 08/21/24 08/21/24 18:59 06:59 18:59 Output Total 1125 1000 Balance -1125 -1000 Output: Urine 1125 1000 Other: Voiding Method Toilet Urinal # Voids 1 2 - Exam GENERAL DESCRIPTION: Middle-age male lying in bed in no distress RESPIRATORY SYSTEM: Unlabored breathing , decreased breath sounds at bases HEART: S1 S2 regular rate and rhythm , ABDOMEN: Soft , no tenderness EXTREMITIES: No edema feet - Labs CBC & Chem 7: 08/21/24 02:34 08/21/24 02:34 Labs: Abnormal Lab Results - Last 24 Hours (Table) 08/21/24 08/21/24 Range/Units 02:34 02:34 RBC 3.38 L (4.40-5.60) X 10*6/uL Hgb 9.8 L (13.0-17.0) g/dL Hct 31.0 L (39.6-50.0) % MCHC 31.6 L (32.0-37.0) g/dL Carbon Dioxide 21.4 L (21.6-31.8) mmol/L Glucose 132 H (70-110) mg/dL Calcium 8.2 L (8.7-10.3) mg/dL Total Bilirubin <0.2 L (0.3-1.2) mg/dL Total Protein 5.1 L (6.2-8.2) g/dL Albumin 3.0 L (3.8-4.9) g/dL Albumin/Globulin Ratio 1.43 L (1.60-3.17) Ratio Microbiology - Last 24 Hours (Table) 08/18/24 12:21 Blood Culture Gram Stain - Preliminary Blood Blood Culture - Preliminary Molecular ID 08/19/24 12:19 Gram Stain - Preliminary Aspirate Body Fluid Culture - Preliminary Assessment and Plan (1) Discitis Current Visit: Yes Status: Acute Code(s): M46.40 - DISCITIS, UNSPECIFIED, SITE UNSPECIFIED SNOMED Code(s): 0863046 (2) Sepsis Current Visit: No Status: Acute Code(s): A41.9 - SEPSIS, UNSPECIFIED ORGANISM SNOMED Code(s): 39848392 (3) Elevated serum creatinine Current Visit: Yes Status: Acute Code(s): R79.89 - OTHER SPECIFIED ABNORMAL FINDINGS OF BLOOD CHEMISTRY SNOMED Code(s): 767353729 (4) Bacteremia Current Visit: Yes Status: Acute Code(s): R78.81 - BACTEREMIA SNOMED Code(s): 1053526 Plan: 1patient presented to hospital with worsening lower back pain in this patient who did have elevated white count elevated lactic acid meeting criteria for SIRS and question of sepsis source would be likely discitis in this patient who did have recent worsening of his chronic back pain and apparently outpatient MRI was suspicious for discitis 2-MRI of the lumbar spine with and without contrast suggestive of discitis/osteomyelitis 3-patient is status post IR aspiration of the affected area for culture which are currently pending 4-blood culture came back positive with strep could be the likely source of this discitis, blood culture have been repeated which so far negative 5-patient will be able to get a PICC line tomorrow for outpatient IV antibiotic likely Rocephin 2 g daily for 6 weeks Dictation was produced using [employer] software. please excuse any grammatical, word or spelling errors. Time with Patient: Less than 30
[2024-08-21] MEDS: ERYTHROMYCIN 5 MG/GM OPHTH OINT 3.5 GM TUBE RIGHT EYE SCH (21:06)
[2024-08-22] MEDS: METOPROLOL SUCCINATE (ER) 100 MG TAB.ER.24H PO SCH (07:52)
[2024-08-22 09:01] LABS: Basophils # (A) 0.03 X 10*3/uL (0.00-0.10); Basophils % (A) 0.5 %; Eosinophils % (A) 1.6 %; HCT 27.7 % (39.6-50.0); Lymphocytes # (A) 2.17 X 10*3/uL (0.90-5.00); Lymphocytes % (A) 33.7 %; MCH 29.3 pg (27.0-32.0); MCHC 32.5 g/dL (32.0-37.0); MCV 90.2 FL (80.0-97.0); Mean Platelet Volume 9.8 FL (9.5-12.2); Monocytes # (A) 0.52 X 10*3/uL (0.20-1.00); Monocytes % (A) 8.1 %; NRBC Per 100 WBC 0 X 10*3/uL (0.00-0.01); Neutrophils # (A) 3.57 X 10*3/uL (1.80-7.70); Neutrophils % (A) 55.5 %; Platelet Count 173 X 10*3/uL (140-440); RBC 3.07 X 10*6/uL (4.40-5.60); RDW 13.8 % (11.5-14.5); WBC 6.43 X 10*3/uL (4.50-10.00)
[2024-08-22 09:29] LABS: Erythrocyte Sedimentation Rate 20 mm/Hr (0-15)
--- NOTE | 2024-08-22 10:59 | P.PN ---
Subjective Progress Note Date: 08/22/24 Principal diagnosis: Discitis L3-4. Streptococcus bacteremia. This is a 48-year-old male whom we are following regarding his low back pain. The patient is seen and examined at bedside. He is not having any new complaints. He has soreness at his back but has been able to mobilize and void freely. He denies any fevers or chills. His pulse ox is 98% on room air. He is afebrile overnight. Objective - Vital Signs Vital signs: Vital Signs Temp 98.2 F 08/22/24 07:05 Pulse 74 08/22/24 07:05 Resp 18 08/22/24 07:05 BP 111/70 08/22/24 07:05 Pulse Ox 98 08/22/24 07:05 FiO2 Intake & Output 08/21/24 08/22/24 08/22/24 18:59 06:59 18:59 Output Total 500 Balance -500 Output: Urine 500 Other: Voiding Method Toilet Urinal # Voids 4 2 # Bowel Movements 1 - Exam This is a pleasant 48-year-old male in no acute distress. He is alert and oriented x 3. He is lying comfortably in bed. He is able to sit up on his own in bed with minimal difficulty. His lower extremities have sustained dorsiflexion plantarflexion lateral. No neurologic deficits noted to the lower extremities. - Labs CBC & Chem 7: 08/22/24 02:23 08/21/24 02:34 Labs: Abnormal Lab Results - Last 24 Hours (Table) 08/22/24 08/22/24 Range/Units 02:23 02:23 RBC 3.07 L (4.40-5.60) X 10*6/uL Hgb 9.0 L (13.0-17.0) g/dL Hct 27.7 L (39.6-50.0) % ESR 20 H (0-15) mm/Hr C-Reactive Protein 3.40 H (0.00-0.80) mg/dL Microbiology - Last 24 Hours (Table) 08/19/24 12:19 Gram Stain - Preliminary Aspirate Body Fluid Culture - Preliminary 08/20/24 03:03 Blood Culture - Preliminary Blood 08/18/24 12:21 Blood Culture Gram Stain - Preliminary Blood Blood Culture - Preliminary Molecular ID Assessment and Plan (1) Bacteremia Current Visit: Yes Status: Acute Code(s): R78.81 - BACTEREMIA SNOMED Code(s): 8914021 (2) Discitis Current Visit: Yes Status: Acute Code(s): M46.40 - DISCITIS, UNSPECIFIED, SITE UNSPECIFIED SNOMED Code(s): 3704044 (3) Low back pain Current Visit: Yes Status: Acute Code(s): M54.50 - LOW BACK PAIN, U NSPECIFIED SNOMED Code(s): 011273091 Plan: 08/20/2024: The MRI is again reviewed. There is no significant stenosis. There is no abscess or phlegmon. There is some increased uptake within the vertebral bodies of L3 and L4 suspicious for infectious process but without any abscess The patient has and has a number of medical issues over the past several months which have been causing issues for him. His white count is responding well and he is on IV antibiotics. He has history of Crohn's disease and that is being managed by medicine as well. He will likely need long-term IV antibiotics and would likely need PICC line once his blood cultures clear. Infectious disease is managing this appropriately. From a spine standpoint he is not having lower extremity neurologic change and he does not have significant stenosis or abscess at the epidural space. I do not have plans for surgical intervention for his lumbar spine at this point. I explained this to him. It is okay for him to mobilize. Will try to continue with pain control and continue medical management. 08/22/2024: The patient has a blood culture showing no growth at 24 hours from 08/20/2024. He may possibly be able to get his PICC line today and plan for discharge home. He will continue with IV antibiotics per infectious disease. He may be discharged from an orthopedic standpoint whenever he is cleared. The patient seems to be making progress. His blood culture from 419 does not show any growth so far. I think he is planning to get a PICC line to go home with IV antibiotics as per infectious disease. We did not have plans for surgery at this point. It is okay for him to be discharged with his antibiotic regimen and to follow-up with our office in the next couple weeks for recheck evaluation as an outpatient. Nish
--- NOTE | 2024-08-22 14:25 | P.PN ---
Subjective This is a 48-year-old white male with a history of Crohn's disease. He has been having low back pain since June. He did physical therapy and had MRI which showed evidence of discitis. He is being treated for this. He is currently on ceftriaxone for antibiotic coverage lorazepam for spasm, hydromorphone for pain. He takes metoprolol for his cardiomyopathy. Staff does report some hypotension for the past several days. He denies any chest pain pressure shortness of breath nausea or vomiting. August 21, 2024: Patient is feeling slightly better today. He remains on ceftriaxone 2 g every 24 hours. He is being followed by infectious disease as well as orthopedics regarding his discitis. He denies any chest pains, pressures or shortness of breath, vitals are stable, he is afebrile. Laboratory studies today show a CBC of 6.93 with no abnormal differential. This is improved from his admission he WBC count of 22,000. Blood cultures are positive for gram cocci in chains, body fluid aspirate is negative August 22, 2024: Patient continues to feel better with less back pain. He remains on ceftriaxone 2 g 24 hours. A PICC line is pending the final cultures from his aspiration and repeat blood cultures. He denies any chest pains pressures or shortness of breath at this time. He has been admitted for discitis. Vital signs are stable. He is afebrile. Laboratory studies show hemoglobin of 10 at 9.0, down from 9.8 yesterday probably hospital-acquired anemia. Orthopedic back surgery infectious disease cardiology and pulmonology are following. He has known hypertrophic cardiomyopathy along with obstructive sleep apnea that he uses CPAP for. Objective - Vital Signs Vital signs: Vital Signs Temp 99.1 F 08/22/24 13:49 Pulse 74 08/22/24 13:49 Resp 18 08/22/24 13:49 BP 112/71 08/22/24 13:49 Pulse Ox 97 08/22/24 13:49 FiO2 Intake & Output 08/21/24 08/22/24 08/22/24 18:59 06:59 18:59 Output Total 500 Balance -500 Output: Urine 500 Other: Voiding Method Toilet Urinal # Voids 4 2 # Bowel Movements 1 - Exam General: The patient is awake and alert, in no distress, a as long as he does not move. Neck: The neck is supple, there is no thyromegaly, lymphadenopathy, tenderness or JVD. Cardiovascular: S1S2 is normal, There is a regular rate and rhythm. No murmur, rub or gallop is appreciated. Respiratory: Lungs are clear to auscultation bilaterally, respirations are non-labored, breath sounds are equal. Gastrointestinal: Soft, non-distended, non-tender abdomen without masses or organomegaly noted. There is no rebound or guarding present. Bowel sounds are unremarkable. Musculoskeletal: Normal ROM, no tenderness, There is no pedal edema. There is no calf tenderness or swelling. No cords were appreciated. Neurological: CN II-XII intact, there are no obvious motor or sensory deficits. Coordination appears grossly intact. Speech is normal. Skin: Skin is warm and dry and no rashes or lesions are noted. - Labs CBC & Chem 7: 08/22/24 02:23 08/21/24 02:34 Labs: Abnormal Lab Results - Last 24 Hours (Table) 08/22/24 08/22/24 Range/Units 02:23 02:23 RBC 3.07 L (4.40-5.60) X 10*6/uL Hgb 9.0 L (13.0-17.0) g/dL Hct 27.7 L (39.6-50.0) % ESR 20 H (0-15) mm/Hr C-Reactive Protein 3.40 H (0.00-0.80) mg/dL Microbiology - Last 24 Hours (Table) 08/20/24 03:03 Blood Culture - Preliminary Blood 08/18/24 12:21 Blood Culture Gram Stain - Final Blood Blood Culture - Final Viridans streptococcus group Molecular ID 08/19/24 12:19 Gram Stain - Preliminary Aspirate Body Fluid Culture - Preliminary Assessment and Plan Plan: Acute on chronic low back pain suspect discitis with possible osteomyelitis: Orthopedics has seen him and do not believe he needs any advanced intervention at this time, infectious diseases following. Hypotension: Possibly related to sepsis, also his cardiomyopathy may be playing a factor we will reduce his metoprolol at this time. Severe obstructive sleep apnea: Monitor Hypertrophic obstructive cardiomyopathy: Cardiology seen him no further recommendations at this time, Tobaccoism: No monitor he is smoke-free at this time Crohn's disease: Currently stable for patient Dr. Gentile. PICC line and IV antibiotics of ceftriaxone 2 g daily for an expected duration of 6 weeks. Infectious disease will treat this. Expect discharge in 24 hours once PICC line is placed
--- NOTE | 2024-08-22 15:46 | P.PN ---
Subjective Progress Note Date: 08/22/24 This is a very pleasant 48-year-old male patient with a known history of chronic and ongoing tobacco dependence, hypertension, gastroesophageal reflux disease, irritable bowel syndrome, hypertrophic obstructive cardiomyopathy, degenerative disc disease in the lumbar spine. He had recently fallen and injured his back back in June. He had recently had a MRI done that showed a possible infection. He was seen by his PCP yesterday who found his white count to be elevated and his blood pressure low and was referred here to the emergency room for the same. Chest x-ray shows no acute cardiopulmonary process. MRI of the lumbar spine is pending. White count 8.2. Hemoglobin 10.2. Platelets 173. Sodium 128. Potassium 3.5. Bicarb 27. BUN 21. Creatinine 0.81. Urinalysis was clear. Serum alcohol level less than 10. He has been initiated on ceftriaxone and daptomycin. We were consulted regarding his sleep apnea. He does have an AHI of 32.6. He has CPAP at home. He was hoping to get a new device. He is seen today in consultation on the regular medical floor. He is awake and alert in no acute distress. Maintaining O2 saturations in the 90s on room air oxygen. No shortness of breath, cough or congestion. No fever or chills. Afebrile. Hemodynamically stable. The patient is seen today August 20, 2024 in follow-up on the regular medical floor. He is currently resting in bed. Awake and alert in no acute distress. Maintaining good O2 saturations in the 90s on room air oxygen. He is continued on ceftriaxone. MR I of the spine did reveal an intense osseous edema with a ssociated enhancement and paravertebral soft tissue swelling centered at L3-L4 there is severe degenerative disc disease. Slight intradiscal enhancements towards the left. Findings concerning for discitis and developing osteomyelitis. A fine-needle aspiration was performed. Cultures pending. Bl ood culture revealing gram-positive cocci in chains. Today's labs are pending. He is somewhat hypotensive this morning. He was given 1 L of fluid and he has been initiated on normal saline at 75 mL/h. The patient is seen today August 21, 2024 in follow-up on the regular medical floor. He is awake and alert in no acute distress. Sitting up in bed. Denies any worsening shortness of breath, cough or congestion. Maintaining good O2 saturations in the 90s on room air oxygen. His pain is well-managed with [place] alternating with Dilaudid as needed. He remains on ceftriaxone. Lovenox for DVT prophylaxis. He is receiving normal saline at 75 mL/h. No new labs today On 08/22/2024, the patient is clinically stable. The patient is being treated for a strep viridans sepsis and the patient also has evidence of discitis. The patient is hemodynamically stable. Back pain is gradually improving. Subsequent blood cultures of the negative and the white cell count is 6.4 with a hemoglobin of 9. The patient has history of hypertrophic cardiomyopathy and he is known to have a chronic cardiac murmur. I thought was reasonable to obtain echocardiogram to rule out the possibility of endocarditis. ID is on the case for now the patient is getting ready for long-term antibiotic treatment. Spine surgery is on the case. The patient has no neurological deficits. He has some soreness in his back but he is able to mobilize and void freely. No fever. No chills. Pulse ox 98% on room oxygen. MRI of the spine was noted. No significant abscess or phlegmon. No significant stenosis. There is some increased uptake within the vertebral bodies at the level of L3 and L4 suspicious for an infectious discitis. Objective - Vital Signs Vital signs: Vital Signs Temp 98.2 F 08/22/24 07:05 Pulse 74 08/22/24 07:05 Resp 18 08/22/24 07:05 BP 111/70 08/22/24 07:05 Pulse Ox 98 08/22/24 07:05 FiO2 Intake & Output 08/21/24 08/22/24 08/22/24 18:59 06:59 18:59 Output Total 500 Balance -500 Output: Urine 500 Other: Voiding Method Toilet Urinal # Voids 4 2 # Bowel Movements 1 - Exam GENERAL EXAM: Alert, very pleasant 48-year-old male, sitting up in bed, on room air oxygen, comfortable in no apparent distress. HEAD: Normocephalic. EYES: Normal reaction of pupils, equal size. NOSE: Clear with pink turbinates. THROAT: No erythema or exudates. NECK: No masses, no JVD. CHEST: No chest wall deformity. LUNGS: Equal air entry with no crackles, wheeze, rhonchi or dullness. CVS: S1 and S2 normal with a loud audible murmur, regular rhythm. ABDOMEN: No hepatosplenomegaly, normal bowel sounds, no guarding or rigidity. SPINE: No scoliosis or deformity SKIN: No rashes CENTRAL NERVOUS SYSTEM: No focal deficits, tone is normal in all 4 extremities. EXTREMITIES: There is no peripheral edema. No clubbing, no cyanosis. Peripheral pulses are intact. - Labs CBC & Chem 7: 08/22/24 02:23 08/21/24 02:34 Labs: Abnormal Lab Results - Last 24 Hours (Table) 08/22/24 08/22/24 Range/Units 02:23 02:23 RBC 3.07 L (4.40-5.60) X 10*6/uL Hgb 9.0 L (13.0-17.0) g/dL Hct 27.7 L (39.6-50.0) % ESR 20 H (0-15) mm/Hr C-Reactive Protein 3.40 H (0.00-0.80) mg/dL Microbiology - Last 24 Hours (Table) 08/18/24 12:21 Blood Culture Gram Stain - Final Blood Blood Culture - Final Viridans streptococcus group Molecular ID 08/19/24 12:19 Gram Stain - Preliminary Aspirate Body Fluid Culture - Preliminary 08/20/24 03:03 Blood Culture - Preliminary Blood Assessment and Plan Plan: Back pain in a patient with discitis, MRI of the spine did reveal an intense osseous edema with associated enhancement and paravertebral soft tissue swelling centered at L3-L4 there is severe degenerative disc disease. Slight intradiscal enhancements towards the left. Findings concerning for discitis and developing osteomyelitis. A fine-needle aspiration was performed 08/19/2024. Blood cultures positive for strep viridans and the patient remains on IV Rocephin. Back pain is improving. Bacteremia secondary to above revealing strep viridans, currently on IV Rocephin Hypotension secondary to above, improved and the patient is currently he modynamically stable History of hypertrophic obstructive cardiomyopathy and the patient has a chronic cardiac murmur History of back injury in June 2024 History of obstructive sleep apnea with an AHI of 32.6 maintained on CPAP in the outpatient setting Chronic and ongoing tobacco dependence History of hypertension History of gastroesophageal reflux disease no history History of irritable bowel syndrome History of degenerative disc disease in the lumbar spine Plan: Hemodynamically stable Continue IV Rocephin Blood cultures positive for strep viridans Obtain echocardiogram, routine transthoracic echocardiogram to evaluate for valvular vegetation Medications reviewed Normal saline at 75 mL/h Currently on ceftriaxone Infectious disease is following Reviewed the chest x-ray from the time of admission and the patient has no airspace disease or consolidation. Denies having any significant respiratory distress at this point in time. Oxygenation is stable and the patient remains on room air oxygen. Lovenox for DVT prophylaxis Protonix for GI prophylaxis No plans for surgical intervention per orthopedics Time with Patient: Greater than 30
--- NOTE | 2024-08-23 07:15 | CA ---
Transthoracic Echo Report Name: Frantz Ann Age: 48 Gender: M : 1975 Exam Date: 08/22/2024 14:48 Exam Location: [place] [facility] Ht (in): 74 Wt (lb): 185 Ordering Physician: Daphne Simpson MD Attending/Referring Phys: [place] Opener Alejandro Powell RDCS Procedure CPT: Indications: rule out endocarditis Cardiac Hx: Technical Quality: Good Contrast 1: Total Dose (mL): Contrast 2: Total Dose (mL): MEASUREMENTS (Male / Female) Normal Values 2D ECHO LV Diastolic Diameter PLAX 5.2 cm 4.2 - 5.9 / 3.9 - 5.3 cm LV Systolic Diameter PLAX 3.3 cm IVS Diastolic Thickness 1.6 cm 0.6 - 1.0 / 0.6 - 0.9 cm LVPW Diastolic Thickness 1.4 cm 0.6 - 1.0 / 0.6 - 0.9 cm LV Relative Wall Thickness 0.6 RV Internal Dim ED PLAX 4.0 cm LVOT Diameter 2.7 cm Aortic Root Diameter 3.4 cm LA Systolic Diameter LX 5.2 cm 3.0 - 4.0 / 2.7 - 3.8 cm LV Diastolic Volume MOD 4C 165.9 cm??? LV Systolic Volume MOD 4C 44.5 cm??? LV Ejection Fraction MOD 4C 73.2 % LV Diastolic Length 4C 10.0 cm LV Systolic Length 4C 8.2 cm LV Diastolic Volume MOD 2C 269.5 cm??? LV Systolic Volume MOD 2C 82.3 cm??? LV Ejection Fraction MOD 2C 69.5 % LV Diastolic Length 2C 10.5 cm LV Systolic Length 2C 8.1 cm LA Volume 132.3 cm??? 18 - 58 / 22 - 52 cm??? LA Volume Index 63.2 cm???/m??? 16 - 28 cm???/m??? DOPPLER MV Peak Velocity 138.8 cm/s MV Peak Gradient 7.7 mmHg MV Mean Velocity 71.3 cm/s MV Mean Gradient 2.5 mmHg MV Velocity Time Integral 41.5 cm MV Area PHT 3.0 cm??? MR Peak Velocity 744.6 cm/s MR Peak Gradient 221.7 mmHg Mitral E Point Velocity 91.3 cm/s Mitral A Point Velocity 78.3 cm/s Mitral E to A Ratio 1.2 MV Deceleration Time 250.7 ms TR Peak Velocity 306.3 cm/s TR Peak Gradient 37.5 mmHg Right Atrial Pressure 5.0 mmHg Pulmonary Artery Systolic Pressu 42.5 mmHg Right Ventricular Systolic Press 42.5 mmHg FINDINGS Left Ventricle Left ventricular ejection fraction is estimated at 60-65 %. Normal left ventricular systolic function with no obvious regional wall motion abnormalities. HOCM mean gradient at rest 191 mmhg.Moderately increased left ventricular wall thickness. Right Ventricle Normal right ventricular size and function. Mild pulmonary hypertension. Right Atrium Normal right atrial size. Left Atrium Severely increased left atrial diameter. Severely increased left atrial volume. Mildly increased left atrial area. Mitral Valve Moderate to severe mitral regurgitation. No mitral stenosis. Echogenic area on the anterior mitral valve leaflets, probable vegetation. Aortic Valve Trileaflet aortic valve. Thickened aortic valve without stenosis. No aortic stenosis. No aortic regurgitation. Tricuspid Valve Structurally normal tricuspid valve. No tricuspid stenosis. Mild tricuspid regurgitation. Pulmonic Valve Structurally normal pulmonic valve. No pulmonic stenosis. Trace pulmonic regurgitation. Pericardium No pericardial effusion. Aorta Normal size aortic root and proximal ascending aorta. CONCLUSIONS 1. Normal left ventricular size and systolic function with evidence of hypertrophic cardiomyopathy, obstructive 2. Echogenic area on the anterior mitral valve leaflets consistent with possible endocarditis with moderate to severe mitral regurgitation 3. Mild tricuspid regurgitation with mild pulmonary hypertension Previewed by: Dr. Suresh Son MD (Electronically Signed) Final Date: 23 August 2024 07:15
--- NOTE | 2024-08-23 10:02 | P.DS ---
Providers Date of admission: 08/18/24 14:12 Expected date of discharge: 08/24/24 Attending physician: Darren France Consults: 08/18/24 12:44 Consult Physician Routine Consulting Provider: Franck Nieto Consult Reason/Comments: Sepsis,poss discitis/osteo. Do you want consulting provider notified?: Yes 08/18/24 12:45 Consult Physician Routine Consulting Provider: Tony Butler Consult Reason/Comments: Poss Discitis Do you want consulting provider notified?: Yes 08/18/24 15:43 Consult Physician Routine Consulting Provider: Donta Patel Consult Reason/Comments: RASHIDA, hypertrophic obstructive cardiomyopathy Do you want consulting provider notified?: Yes 08/18/24 15:44 Consult Physician Routine Consulting Provider: Alfonso Cruz Consult Reason/Comments: Hypertrophic obstructive cardiomyopathy Do you want consulting provider notified?: Yes 08/20/24 10:40 Consult Physician Routine Consulting Provider: Alfonso Cruz Consult Reason/Comments: hypotension, Hypertrophic cardiomyopathy Do you want consulting provider notified?: Yes Primary care physician: Darren France [facility] Course: Final Diagnosis: -Acute on chronic low back pain suspect discitis with possible osteomyelitis: Orthopedics has seen him and do not believe he needs any advanced intervention at this time, infectious diseases following. -Bacteremia,strep viridans -Sepsis secondary to the above -Hypotension, leukocytosis secondary to the above -Lactic acidosis -Acute renal injury secondary to all the above -Unintentional 43 pound weight loss since 06/28, BMI 32 1 year ago, decreased to 24, workup in progress. -Severe RASHIDA -Hypertrophic obstructive cardiomyopathy -Nicotine dependence, smokes 1/2 pack/day - Hypertension - Gastroesophageal reflux disease - IBS, Crohn's disease, stable. Reports last exacerbation of Crohn's disease managed by Dr. Mendieta. - Hypertension - Regular alcohol use reports drinks greater than 14 beers a week - Marijuana use Hospital course: 08/18/2024 this is a 48-year-old gentleman with past medical history significant for degenerative disc disease of lumbar spine, intensified/flare-up in June. Recently started following with orthopedic spine Dr. Butler. Reports MRI performed at last week, report being obtained. Reports mid lower back pain upon standing. Patient had gone to see his PCP Dr. France this morning appeared cold, clammy, hypotensive with outpatient labs reporting white count of 2100, in addition to significant weight loss. Patient was sent by EMS to the ER. Receiving IV fluid resuscitation -Currently total fl uid boluses of 1200 mL. Blood pressure soft on admission. antibiotics of vancomycin, cefepime. Denies chest pain, palpitations or shortness of breath. Afebrile, WBC 22, hemoglobin 13.7 MCV 85.5, platelets 260 INR 1.1, sodium 131, potassium 3.7, carbon 27, anion gap 10 BUN 30, creatinine 1.36, glucose 161, lactic acid 2.6, calcium 9.2, T. bili/LFTs within normal limits, amylase/lipase within normal limits. Denies loss of bowel or bladder control or saddle paresthesia denies fever or chills. Denies abdominal pain, dysuria, hematuria.denies bloody stools, dark stools .denies numbness or weakness, occasional sciatica of the right leg. Denies chest pain, palpitations or shortness of breath. Past medical history also significant for IBS/Crohn's-last exacerbation was years ago with Dr. Mendieta, gastroesophageal reflux disease, severe sleep apnea, hypertrophic obstructive cardiomyopathy, ongoing nicotine dependence of greater than 30 years-half a pack per day, regular alcohol use drinks greater than 14 beers per week, marijuana use. Pancultured. IV fluid resuscitation. Pain management. Obtaining MRI report from [facility]. Repeat CBC, sed rate, CRP, EtOH level,stool for occult blood, nicotine patch, CIWA protocol ordered .PPI ordered for GI prophylaxis. Dr. Butler/orthopedic spine, infectious disease, pulmonary/property assessment monitor and cardiology consulted as per PCP. Discontinued vancomycin. Discussed with infectious disease with further adjustments in antibiotics pending. Repeat lactic acid pending. close monitoring of coags, renal function, electrolytes with repeat labs ordered for tomorrow. August 21, 2024: Patient is feeling slightly better today. He remains on ceftriaxone 2 g every 24 hours. He is being followed by infectious disease as well as orthopedics regarding his discitis. He denies any chest pains, pressures or shortness of breath, vitals are stable, he is afebrile. Laboratory studies today show a CBC of 6.93 with no abnormal differential. This is improved from his admission he WBC count of 22,000. Blood cultures are positive for gram cocci in chains, body fluid aspirate is negative August 22, 2024: Patient continues to feel better with less back pain. He remains on ceftriaxone 2 g 24 hours. A PICC line is pending the final cultures from his aspiration and repeat blood cultures. He denies any chest pains pressures or shortness of breath at this time. He has been admitted for discitis. Vital signs are stable. He is afebrile. Laboratory studies show hemoglobin of 10 at 9.0, down from 9.8 yesterday probably hospital-acquired anemia. Orthopedic back surgery infectious disease cardiology and pulmonology are following. He has known hypertrophic cardiomyopathy along with obstructive sleep apnea that he uses CPAP for. Cleared by all consults for discharge.patient will be discharged home today on 6 weeks of ceftriaxone 2 g daily as per infectious disease, pending PICC line placement, in a stable condition with guarded prognosis. The impression and plan of care has been dictated as directed. : I performed a history and examination of this patient, discussed the same with the dictator. I agree with the dictator's note ,documented as a scribe. Any additional findings or plans will be noted. Patient Condition at Discharge: Stable Plan - Discharge Summary New Discharge Prescriptions: New cefTRIAXone [Rocephin] 2 gm IVPB Q24H #40 each Erythromycin Ophth Oint [Romycin Ophth Oint] 1 applic RIGHT EYE Q4HR each Continue Hyoscyamine Sulfate [Levbid] 0.375 mg PO Q12H Omeprazole [PriLOSEC] 20 mg PO DAILY HYDROcodone/APAP 10-325MG [[place] 10-325] 1 tab PO Q6H PRN PRN Reason: Pain Metoprolol Succinate (ER) [Toprol XL] 100 mg PO DAILY Changed methocarbamoL [Robaxin] 500 mg PO QID #30 tab Discontinued lisinopriL [Zestril] 20 mg PO BID Ibuprofen [Motrin] 800 mg PO TID PRN PRN Reason: Pain hydroCHLOROthiazide [Hydrodiuril] 25 mg PO DAILY amLODIPine [Norvasc] 2.5 mg PO DAILY Discharge Medication List Hyoscyamine Sulfate [Levbid] 0.375 mg PO Q12H 04/04/15 [History] Omeprazole [PriLOSEC] 20 mg PO DAILY 04/04/15 [History] HYDROcodone/APAP 10-325MG [[place] 10-325] 1 tab PO Q6H PRN 08/18/24 [History] Metoprolol Succinate (ER) [Toprol XL] 100 mg PO DAILY 08/18/24 [History] cefTRIAXone [Rocephin] 2 gm IVPB Q24H #40 each 08/22/24 [Rx] Erythromycin Ophth Oint [Romycin Ophth Oint] 1 applic RIGHT EYE Q4HR each 08/23/24 [Rx] methocarbamoL [Robaxin] 500 mg PO QID #30 tab 08/23/24 [Rx] Follow up Appointment(s)/Referral(s): Tony Butler DO [Doctor of Osteopathic Medicine] - 3 Weeks Darren France Jr, DO [Primary Care Provider] - 1-2 days Alfonso Cruz DO [STAFF PHYSICIAN] - 1 Week Franck Nieto MD [STAFF PHYSICIAN] - 1 Week Daphne Simpson MD [STAFF PHYSICIAN] - 1 Week & Oxana Scott Procedures [REFERRING] - 08/24/24 8:00 am Ambulatory/Diagnostic Orders: Basic Metabolic Panel [LAB.AMB] Location: None Selected C Reactive Protein [LAB.AMB] Location: None Selected Complete Blood Count w/diff [LAB.AMB] Location: None Selected Erythrocyte Sedimentation Rate [LAB.AMB] Location: None Selected
[2024-08-23] MEDS ORDERED: MIDAZOLAM 2 MG/2 ML VIAL IV PRN (12:02)
[2024-08-23] MEDS ORDERED: fentaNYL (PF) 50 MCG/ML 5 ML AMP IVP PRN (12:02)
--- NOTE | 2024-08-23 12:29 | P.PN ---
Subjective Progress Note Date: 08/23/24 H&P Date: 08/18/24 Chief Complaint: Back pain This is a 48-year-old gentleman with past medical history significant for degenerative disc disease of lumbar spine, intensified/flare-up in June. Recently started following with orthopedic spine Dr. Butler. Reports MRI performed at last week, report being obtained. Reports mid lower back pain upon standing. Patient had gone to see his PCP Dr. France this morning appeared cold, clammy, hypotensive with outpatient labs reporting white count of 2100, in addition to significant weight loss. Patient was sent by EMS to the ER. Receiving IV fluid resuscitation -Currently total fluid boluses of 1200 mL. Blood pressure soft on admission. antibiotics of vancomycin, cefepime. Denies chest pain, palpitations or shortness of breath. Afebrile, WBC 22, hemoglobin 13.7 MCV 85.5, platelets 260 INR 1.1, sodium 131, potassium 3.7, carbon 27, anion gap 10 BUN 30, creatinine 1.36, glucose 161, lactic acid 2.6, calcium 9.2, T. bili/LFTs within normal limits, amylase/lipase within normal limits. Denies loss of bowel or bladder control or saddle paresthesia denies fever or chills. Denies abdominal pain, dysuria, hematuria.denies bloody stools, dark stools .denies numbness or weakness, occasional sciatica of the right leg. Denies chest pain, palpitations or shortness of breath. Past medical history also significant for IBS/Crohn's-last exacerbation was years ago with Dr. Mendieta, gastroesophageal reflux disease, severe sleep apnea, hypertrophic obstructive cardiomyopathy, ongoing nicotine dependence of greater than 30 years-half a pack per day, regular alcohol use drinks greater than 14 beers per week, marijuana use. This is a 48-year-old white male with a history of Crohn's disease. He has been having low back pain since June. He did physical therapy and had MRI which showed evidence of discitis. He is being treated for this. He is currently on ceftriaxone for antibiotic coverage lorazepam for spasm, hydromorphone for pain. He takes metoprolol for his cardiomyopathy. Staff does report some hypotension for the past several days. He denies any chest pain pressure shortness of breath nausea or vomiting. August 21, 2024: Patient is feeling slightly better today. He remains on ceftriaxone 2 g every 24 hours. He is being followed by infectious disease as well as orthopedics regarding his discitis. He denies any chest pains, pressures or shortness of breath, vitals are stable, he is afebrile. Laboratory studies today show a CBC of 6.93 with no abnormal differential. This is improved from his admission he WBC count of 22,000. Blood cultures are positive for gram cocci in chains, body fluid aspirate is negative August 22, 2024: Patient continues to feel better with less back pain. He remains on ceftriaxone 2 g 24 hours. A PICC line is pending the final cultures from his aspiration and repeat blood cultures. He denies any chest pains pressures or shortness of breath at this time. He has been admitted for discitis. Vital signs are stable. He is afebrile. Laboratory studies show hemoglobin of 10 at 9.0, down from 9.8 yesterday probably hospital-acquired anemia. Orthopedic back surgery infectious disease cardiology and pulmonology are following. He has known hypertrophic cardiomyopathy along with obstructive sleep apnea that he uses CPAP for. 08/23/2024 initially planned for discharge today, placed on hold. Echo reporting normal LV function with evidence of hypertrophic cardiomyopathy, obstructive. Echogenic area on the anterior mitral valve leaflets consistent with possible endocarditis and moderate to severe mitral regurgitation. Mild tricuspid regurgitation with mild pulmonary hypertension. Scheduled for DEEDEE. Objective - Vital Signs Vital signs: Vital Signs Temp 97.7 F 08/23/24 07:16 Pulse 67 08/23/24 07:16 Resp 16 08/23/24 07:16 BP 124/72 08/23/24 07:16 Pulse Ox 96 08/23/24 07:16 FiO2 Intake & Output 08/22/24 08/23/24 08/23/24 18:59 06:59 18:59 Other: # Voids 4 2 - Exam General: awake and alert, in no distress Neck: supple, no JVD. Cardiovascular: S1S2 is normal, There is a regular rate and rhythm. Systolic murmur. Respiratory: Lungs are clear to auscultation bilaterally, respirations are non- labored, breath sounds are equal. Gastrointestinal: Soft, non-distended, non-tender abdomen.no rebound or guarding present. Positive bowel sounds. EXTREMITIES: no pedal edema. no calf tenderness or swelling. Neurological: CN II-XII intact, there are no obvious motor or sensory deficits. Skin: Skin is warm and dry, no rashes noted. - Labs CBC & Chem 7: 08/22/24 02:23 08/21/24 02:34 Labs: Microbiology - Last 24 Hours (Table) 08/19/24 12:19 Gram Stain - Preliminary Aspirate Body Fluid Culture - Preliminary 08/20/24 03:03 Blood Culture - Preliminary Blood 08/18/24 12:21 Blood Culture Gram Stain - Final Blood Blood Culture - Final Viridans streptococcus group Molecular ID Assessment and Plan Assessment: -Acute on chronic back pain, suspect discitis with possible developing osteomyelitis:Orthopedics has seen him and do not believe he needs any advanced intervention at this time, infectious diseases following. -Bacteremia,strep viridans -Sepsis secondary to the above -Hypotension, leukocytosis, secondary to the above -Lactic acidosis -Acute renal injury secondary to all the above -Unintentional 43 pound weight loss since 06/28, BMI 32 1 year ago, decreased to 24, workup in progress. -Severe RASHIDA -Hypertrophic obstructive cardiomyopathy -Nicotine dependence, smokes 1/2 pack/day - Hypertension - Gastroesophageal reflux disease - IBS, Crohn's disease. Reports last exacerbation of Crohn's disease managed by Dr. Mendieta. - Hypertension - Regular alcohol use reports drinks greater than 14 beers a week - Marijuana use Plan: Continue on current medication regime ,monitoring and symptomatic treatment. Discharge on hold, echo returned suggesting endocarditis. DEEDEE pending. Maintain Rocephin as recommended per ID. The impression and plan of care has been dictated as directed. : I performed a history and examination of this patient, discussed the same with the dictator. I agree with the dictator's note ,documented as a scribe. Any additional findings or plans will be noted.
--- NOTE | 2024-08-23 13:25 | P.PN ---
Subjective HISTORY OF PRESENT ILLNESS: pain. We have been asked to evaluate the patient for hypertrophic cardiomyopathy. Patient states that he has been feeling weak and lightheaded he had a workup regarding his chronic back pain and he was found to have elevated white count and and to be septic and he is being worked up for discitis. He underwent an MRI today as well as needle aspiration under CT guidance of L3-L4 was done today. Orthopedics, infectious disease and pulmonary medicine are all on consult. Patient is denying any chest pain or chest pressure, no shortness of breath, no palpitations. Blood pressure 110/75, heart rate 92, pulse ox 95% on room air. -EKG: Sinus rhythm with LVH. -Chest x-ray: No acute process. -Laboratory studies: Initial WBC 22 now 8.27, hemoglobin is 10.2, sodium 132, potassium 3.7, creatinine 0.84. Initial lactic acid 2.6 and repeat 1.2. -Home cardiac medications: Amlodipine 2.5 mg daily, hydrochlorothiazide 25 mg daily, lisinopril 20 mg twice daily, metoprolol succinate 100 mg daily. -Event monitor 07/17/2023 - 07/30/2023 revealed sinus rhythm. -Lexiscan Cardiolite stress test performed on 06/19/2023 was aborted due to concerns for hypertrophic cardiomyopathy. EF 55%. -Echocardiogram performed 06/19/2023 revealed EF of 60 to 65%. Grade 2 diastolic dysfunction. Severe left ventricular hypertrophy. Severe HARRY with LVOT obstruction consistent with HOCM. Aortic valve is calcified. Valve thickened a nd calcified. Mild tricuspid regurgitation, PASP 40 mmHg. 08/20 Patient seen and examined. Blood pressure readings are low this morning and he did not receive amlodipine nor lisinopril due to parameters. Primary has decreased beta-shawanda to 25 mg daily as well. Patient denies lightheadedness or dizziness. No chest pain no shortness of breath. He does have pain in his back and sometimes it goes down his right leg. Blood pressure 82/49, heart rate 66, pulse ox 98% on room air. Repeat blood work reveals sodium 132, potassium 3.7, BUN 17 creatinine 0.84. 08/21 Patient seen and examined. Patient denies chest pain or chest pressure, no shortness of breath, no dizziness or lightheadedness, no palpitations. Patient had a fluid bolus given yesterday and medications adjusted due to hypotension. Today, blood pressure is 121/83. Heart rate is running in the 70s and 80s. 08/23/2024 Cardiology was reconsulted secondary to abnormal echocardiogram. 2D echo obtained revealing ejection fraction 60 to 65%, HOCM with mean gradient at rest 191 mmHg, moderately increased left ventricular wall thickness, mild pulmonary hypertension, moderate to severe mitral regurgitation, echogenic area on the anterior mitral valve leaflet, probable vegetation, mild tricuspid regurgitation. PHYSICAL EXAM: VITAL SIGNS: Reviewed. GENERAL: Well-developed in no acute distress. NECK: Supple. No JVD or thyromegaly LUNGS: Respirations even and unlabored. Lungs essentially clear to auscultation bilaterally. HEART: Regular rate and rhythm. S1 and S2 heard. Systolic murmur at the base with increased intensity with Valsalva maneuver. Holosystolic murmur noted at the apex. EXTREMITIES: Normal range of motion. No clubbing or cyanosis. Peripheral pulses intact. No lower extremity edema ASSESSMENT: Hypertrophic cardiomyopathy Discitis with possible osteomyelitis Possible vegetation of mitral valve Moderate to severe mitral regurgitation Bacteremia, strep viridans Chronic back pain with injury June 2024 Hypertension Obstructive sleep apnea on CPAP Chronic tobacco use and dependence PLAN: Continue antibiotics per infectious disease NPO at midnight Patient to undergo DEEDEE tomorrow with Dr. Cruz Further recommendations pending patient course Nurse practitioner note has been reviewed by physician. Signing provider agrees with the documented findings, assessment, and plan of care documented by MEDICAL INSTRUMENT CABLE FABRICATOR as a scribe. Objective - Vital Signs Vital signs: Vital Signs Temp 97.7 F 08/23/24 07:16 Pulse 67 08/23/24 07:16 Resp 16 08/23/24 07:16 BP 124/72 08/23/24 07:16 Pulse Ox 96 08/23/24 07:16 FiO2 Intake & Output 08/22/24 08/23/24 08/23/24 18:59 06:59 18:59 Other: # Voids 4 2 - Labs CBC & Chem 7: 08/22/24 02:23 08/21/24 02:34 Labs: Microbiology - Last 24 Hours (Table) 08/19/24 12:19 Gram Stain - Preliminary Aspirate Body Fluid Culture - Preliminary 08/20/24 03:03 Blood Culture - Preliminary Blood 08/18/24 12:21 Blood Culture Gram Stain - Final Blood Blood Culture - Final Viridans streptococcus group Molecular ID
--- NOTE | 2024-08-23 14:42 | P.PN ---
Subjective Progress Note Date: 08/22/24 Principal diagnosis: Reason for follow-up with discitis and bacteremia Patient is a 48-year-old male with a past medical history significant for reflux hypertension IBS degenerative disc disease to the lumbar spine has been dealing with lower back pain since June 2024 with recent worsening and outpatient MRI suspicious for discitis admitted to hospital with worsening symptom and white count. On today's evaluation that is 08/22/2024, patient has been afebrile, patient is breathing comfortably and is currently on room air, patient denies having any chest pain and cough, patient denies nausea vomiting or diarrhea and no abdominal pain, lower back pain is currently controlled slight decrease in intensity. Patient did have a white count of 6.43 Objective - Vital Signs Vital signs: Vital Signs Temp 98.2 F 08/22/24 07:05 Pulse 74 08/22/24 07:05 Resp 18 08/22/24 07:05 BP 111/70 08/22/24 07:05 Pulse Ox 98 08/22/24 07:05 FiO2 Intake & Output 08/21/24 08/22/24 08/22/24 18:59 06:59 18:59 Output Total 500 Balance -500 Output: Urine 500 Other: Voiding Method Toilet Urinal # Voids 4 2 # Bowel Movements 1 - Exam GENERAL DESCRIPTION: Middle-age male lying in bed in no distress RESPIRATORY SYSTEM: Unlabored breathing , decreased breath sounds at bases HEART: S1 S2 regular rate and rhythm , ABDOMEN: Soft , no tenderness EXTREMITIES: No edema feet - Labs CBC & Chem 7: 08/22/24 02:23 08/21/24 02:34 Labs: Abnormal Lab Results - Last 24 Hours (Table) 08/22/24 08/22/24 Range/Units 02:23 02:23 RBC 3.07 L (4.40-5.60) X 10*6/uL Hgb 9.0 L (13.0-17.0) g/dL Hct 27.7 L (39.6-50.0) % ESR 20 H (0-15) mm/Hr C-Reactive Protein 3.40 H (0.00-0.80) mg/dL Microbiology - Last 24 Hours (Table) 08/19/24 12:19 Gram Stain - Preliminary Aspirate Body Fluid Culture - Preliminary 08/20/24 03:03 Blood Culture - Preliminary Blood 08/18/24 12:21 Blood Culture Gram Stain - Preliminary Blood Blood Culture - Preliminary Molecular ID Assessment and Plan (1) Discitis Current Visit: Yes Status: Acute Code(s): M46.40 - DISCITIS, UNSPECIFIED, SITE UNSPECIFIED SNOMED Code(s): 6771558 (2) Sepsis Current Visit: No Status: Acute Code(s): A41.9 - SEPSIS, UNSPECIFIED ORGANISM SNOMED Code(s): 21468390 (3) Elevated serum creatinine Current Visit: Yes Status: Acute Code(s): R79.89 - OTHER SPECIFIED ABNORMAL FINDINGS OF BLOOD CHEMISTRY SNOMED Code(s): 597693449 (4) Bacteremia Current Visit: Yes Status: Acute Code(s): R78.81 - BACTEREMIA SNOMED Code(s): 4299197 Plan: 1patient presented to hospital with worsening lower back pain in this patient who did have elevated white count elevated lactic acid meeting criteria for SIRS and question of sepsis source would be likely discitis in this patient who did have recent worsening of his chronic back pain and apparently outpatient MRI was suspicious for discitis 2-MRI of the lumbar spine with and without contrast suggestive of discitis/osteomyelitis 3-patient is status post IR aspiration of the affected area for culture which are currently pending 4-blood culture came back positive with strep repeat blood culture have been negative so far 5-patient did have a PICC line placement Rocephin to continue outpatient IV antibiotic prescription provided to the patient case coordinator Dictation was produced using [employer] dictation software. please excuse any grammatical, word or spelling errors. Time with Patient: Less than 30
--- NOTE | 2024-08-23 14:43 | P.PN ---
Subjective Progress Note Date: 08/23/24 Principal diagnosis: Reason for follow-up with discitis and bacteremia Patient is a 48-year-old male with a past medical history significant for reflux hypertension IBS degenerative disc disease to the lumbar spine has been dealing with lower back pain since June 2024 with recent worsening and outpatient MRI suspicious for discitis admitted to hospital with worsening symptom and white count. On today's evaluation that is 08/23/2024, Patient is afebrile this morning patient denies having any chest pain shortness of breath or cough, the patient is currently on room air, patient denies any abdominal pain no diarrhea no nausea no vomiting.No new symptoms and back pain is well-controlled. No new lab has been obtained today he did have an echocardiogram concerning for possible vegetation Objective - Vital Signs Vital signs: Vital Signs Temp 97.6 F 08/23/24 13:51 Pulse 67 08/23/24 13:51 Resp 17 08/23/24 13:51 BP 103/64 08/23/24 13:51 Pulse Ox 98 08/23/24 13:51 FiO2 Intake & Output 08/22/24 08/23/24 08/23/24 18:59 06:59 18:59 Other: # Voids 4 2 - Exam GENERAL DESCRIPTION: Middle-age male lying in bed in no distress RESPIRATORY SYSTEM: Unlabored breathing , decreased breath sounds at bases HEART: S1 S2 regular rate and rhythm , ABDOMEN: Soft , no tenderness EXTREMITIES: No edema feet - Labs CBC & Chem 7: 08/22/24 02:23 08/21/24 02:34 Labs: Microbiology - Last 24 Hours (Table) 08/20/24 03:03 Blood Culture - Preliminary Blood 08/19/24 12:19 Gram Stain - Preliminary Aspirate Body Fluid Culture - Preliminary 08/18/24 12:21 Blood Culture Gram Stain - Final Blood Blood Culture - Final Viridans streptococcus group Molecular ID Assessment and Plan (1) Discitis Current Visit: Yes Status: Acute Code(s): M46.40 - DISCITIS, UNSPECIFIED, SITE UNSPECIFIED SNOMED Code(s): 5153935 (2) Sepsis Current Visit: No Status: Acute Code(s): A41.9 - SEPSIS, UNSPECIFIED ORGANISM SNOMED Code(s): 53750638 (3) Elevated serum creatinine Current Visit: Yes Status: Acute Code(s): R79.89 - OTHER SPECIFIED ABNORMAL FINDINGS OF BLOOD CHEMISTRY SNOMED Code(s): 369805399 (4) Bacteremia Current Visit: Yes Status: Acute Code(s): R78.81 - BACTEREMIA SNOMED Code(s): 4868374 Plan: 1patient presented to hospital with worsening lower back pain in this patient who did have elevated white count elevated lactic acid meeting criteria for SIRS and question of sepsis source would be likely discitis in this patient who did have recent worsening of his chronic back pain and apparently outpatient MRI was suspicious for discitis 2-MRI of the lumbar spine with and without contrast suggestive of discitis/osteomyelitis 3-patient is status post IR aspiration of the affected area for culture which are currently pending 4-blood culture came back positive with strep viridans repeat blood culture negative echocardiogram suspicious for endocarditis DEEDEE has been requested we will continue with Rocephin at this point and follow-up on the DEEDEE report Dictation was produced using [employer] dictation software. please excuse any grammatical, word or spelling errors. Time with Patient: Less than 30
--- NOTE | 2024-08-23 16:12 | P.PN ---
Subjective Progress Note Date: 08/23/24 This is a very pleasant 48-year-old male patient with a known history of chronic and ongoing tobacco dependence, hypertension, gastroesophageal reflux disease, irritable bowel syndrome, hypertrophic obstructive cardiomyopathy, degenerative disc disease in the lumbar spine. He had recently fallen and injured his back back in June. He had recently had a MRI done that showed a possible infection. He was seen by his PCP yesterday who found his white count to be elevated and his blood pressure low and was referred here to the emergency room for the same. Chest x-ray shows no acute cardiopulmonary process. MRI of the lumbar spine is pending. White count 8.2. Hemoglobin 10.2. Platelets 173. Sodium 128. Potassium 3.5. Bicarb 27. BUN 21. Creatinine 0.81. Urinalysis was clear. Serum alcohol level less than 10. He has been initiated on ceftriaxone and daptomycin. We were consulted regarding his sleep apnea. He does have an AHI of 32.6. He has CPAP at home. He was hoping to get a new device. He is seen today in consultation on the regular medical floor. He is awake and alert in no acute distress. Maintaining O2 saturations in the 90s on room air oxygen. No shortness of breath, cough or congestion. No fever or chills. Afebrile. Hemodynamically stable. The patient is seen today August 20, 2024 in follow-up on the regular medical floor. He is currently resting in bed. Awake and alert in no acute distress. Maintaining good O2 saturations in the 90s on room air oxygen. He is continued on ceftriaxone. MR I of the spine did reveal an intense osseous edema with a ssociated enhancement and paravertebral soft tissue swelling centered at L3-L4 there is severe degenerative disc disease. Slight intradiscal enhancements towards the left. Findings concerning for discitis and developing osteomyelitis. A fine-needle aspiration was performed. Cultures pending. Bl ood culture revealing gram-positive cocci in chains. Today's labs are pending. He is somewhat hypotensive this morning. He was given 1 L of fluid and he has been initiated on normal saline at 75 mL/h. The patient is seen today August 21, 2024 in follow-up on the regular medical floor. He is awake and alert in no acute distress. Sitting up in bed. Denies any worsening shortness of breath, cough or congestion. Maintaining good O2 saturations in the 90s on room air oxygen. His pain is well-managed with [place] alternating with Dilaudid as needed. He remains on ceftriaxone. Lovenox for DVT prophylaxis. He is receiving normal saline at 75 mL/h. No new labs today On 08/22/2024, the patient is clinically stable. The patient is being treated for a strep viridans sepsis and the patient also has evidence of discitis. The patient is hemodynamically stable. Back pain is gradually improving. Subsequent blood cultures of the negative and the white cell count is 6.4 with a hemoglobin of 9. The patient has history of hypertrophic cardiomyopathy and he is known to have a chronic cardiac murmur. I thought was reasonable to obtain echocardiogram to rule out the possibility of endocarditis. ID is on the case for now the patient is getting ready for long-term antibiotic treatment. Spine surgery is on the case. The patient has no neurological deficits. He has some soreness in his back but he is able to mobilize and void freely. No fever. No chills. Pulse ox 98% on room oxygen. MRI of the spine was noted. No significant abscess or phlegmon. No significant stenosis. There is some increased uptake within the vertebral bodies at the level of L3 and L4 suspicious for an infectious discitis. On 08/23/2024, the patient is being seen for a follow-up. The patient is clinic ally stable and hemodynamically stable. The patient remains on IV Rocephin. Echocardiogram was performed yesterday and the patient has echogenic density involving the mitral valve consistent with vegetation and infective endocarditis. LV function essentially within normal limits. The patient has an area of the anterior mitral valve consistent with endocarditis and the patient has moderate to severe mitral regurgitation and mild pulmonary hypertension. He continues to have a harsh cardiac murmur. The white cell count is 6.4, he was 9 and a platelet count of 173. Discussed the case with cardiology and the patient is going to undergo a DEEDEE tomorrow. No other significant events otherwise for now. Repeat blood cultures are negative. Objective - Vital Signs Vital signs: Vital Signs Temp 97.7 F 08/23/24 07:16 Pulse 67 08/23/24 07:16 Resp 16 08/23/24 07:16 BP 124/72 08/23/24 07:16 Pulse Ox 96 08/23/24 07:16 FiO2 Intake & Output 08/22/24 08/23/24 08/23/24 18:59 06:59 18:59 Other: # Voids 4 2 - Exam GENERAL EXAM: Alert, very pleasant 48-year-old male, sitting up in bed, on room air oxygen, comfortable in no apparent distress. HEAD: Normocephalic. EYES: Normal reaction of pupils, equal size. NOSE: Clear with pink turbinates. THROAT: No erythema or exudates. NECK: No masses, no JVD. CHEST: No chest wall deformity. LUNGS: Equal air entry with no crackles, wheeze, rhonchi or dullness. CVS: S1 and S2 normal with a loud audible murmur, regular rhythm. ABDOMEN: No hepatosplenomegaly, normal bowel sounds, no guarding or rigidity. SPINE: No scoliosis or deformity SKIN: No rashes CENTRAL NERVOUS SYSTEM: No focal deficits, tone is normal in all 4 extremities. EXTREMITIES: There is no peripheral edema. No clubbing, no cyanosis. P eripheral pulses are intact. - Labs CBC & Chem 7: 08/22/24 02:23 08/21/24 02:34 Labs: Microbiology - Last 24 Hours (Table) 08/19/24 12:19 Gram Stain - Preliminary Aspirate Body Fluid Culture - Preliminary 08/20/24 03:03 Blood Culture - Preliminary Blood 08/18/24 12:21 Blood Culture Gram Stain - Final Blood Blood Culture - Final Viridans streptococcus group Molecular ID Assessment and Plan Plan: Back pain in a patient with discitis, MRI of the spine did reveal an intense osseous edema with associated enhancement and paravertebral soft tissue swelling centered at L3-L4 there is severe degenerative disc disease. Slight intradiscal enhancements towards the left. Findings concerning for discitis and developing osteomyelitis. A fine-needle aspiration was performed 08/19/2024. Blood cultures positive for strep viridans and the patient remains on IV Rocephin. Back pain is improving. Bacteremia secondary to above revealing strep viridans, currently on IV Rocephin, repeat cultures are negative Infective endocarditis of the mitral valve with moderate severe mitral regurgitation. The patient also has hypertrophic obstructive cardiomyopathy. The patient will undergo a DEEDEE in a.m. Preserved LV function. Hypotension secondary to above, improved and the patient is currently hemodynamically stable History of hypertrophic obstructive cardiomyopathy and the patient has a chronic cardiac murmur History of back injury in June 2024 History of obstructive sleep apnea with an AHI of 32.6 maintained on CPAP in the outpatient setting Chronic and ongoing tobacco dependence History of hypertension History of gastroesophageal reflux disease no history History of irritable bowel syndrome History of degenerative disc disease in the lumbar spine Plan: Hemodynamically stable Continue IV Rocephin Blood cultures positive for strep viridans Echo is consistent with endocarditis and the patient is going to undergo a DEEDEE tomorrow. Discussed the case with cardiology. Medications reviewed Normal saline at 75 mL/h Currently on ceftriaxone Infectious disease is following Reviewed the chest x-ray from the time of admission and the patient has no airspace disease or consolidation. Denies having any significant respiratory distress at this point in time. Oxygenation is stable and the patient remains on room air oxygen. Lovenox for DVT prophylaxis Protonix for GI prophylaxis No plans for surgical intervention per orthopedics Time with Patient: Greater than 30
--- NOTE | 2024-08-24 11:01 | P.PN ---
Subjective Progress Note Date: 08/24/24 H&P Date: 08/18/24 Chief Complaint: Back pain This is a 48-year-old gentleman with past medical history significant for degenerative disc disease of lumbar spine, intensified/flare-up in June. Recently started following with orthopedic spine Dr. Butler. Reports MRI performed at last week, report being obtained. Reports mid lower back pain upon standing. Patient had gone to see his PCP Dr. [place] this morning appeared cold, clammy, hypotensive with outpatient labs reporting white count of 2100, in addition to significant weight loss. Patient was sent by EMS to the ER. Receiving IV fluid resuscitation -Currently total fluid boluses of 1200 mL. Blood pressure soft on admission. antibiotics of vancomycin, cefepime. Denies chest pain, palpitations or shortness of breath. Afebrile, WBC 22, hemoglobin 13.7 MCV 85.5, platelets 260 INR 1.1, sodium 131, potassium 3.7, carbon 27, anion gap 10 BUN 30, creatinine 1.36, glucose 161, lactic acid 2.6, calcium 9.2, T. bili/LFTs within normal limits, amylase/lipase within normal limits. Denies loss of bowel or bladder control or saddle paresthesia denies fever or chills. Denies abdominal pain, dysuria, hematuria.denies bloody stools, dark stools .denies numbness or weakness, occasional sciatica of the right leg. Denies chest pain, palpitations or shortness of breath. Past medical history also significant for IBS/Crohn's-last exacerbation was years ago with Dr. Mendieta, gastroesophageal reflux disease, severe sleep apnea, hypertrophic obstructive cardiomyopathy, ongoing nicotine dependence of greater than 30 years-half a pack per day, regular alcohol use drinks greater than 14 beers per week, marijuana use. This is a 48-year-old white male with a history of Crohn's disease. He has been having low back pain since June. He did physical therapy and had MRI which showed evidence of discitis. He is being treated for this. He is currently on ceftriaxone for antibiotic coverage lorazepam for spasm, hydromorphone for pain. He takes metoprolol for his cardiomyopathy. Staff does report some hypotension for the past several days. He denies any chest pain pressure shortness of breath nausea or vomiting. August 21, 2024: Patient is feeling slightly better today. He remains on ceftriaxone 2 g every 24 hours. He is being followed by infectious disease as well as orthopedics regarding his discitis. He denies any chest pains, pressures or shortness of breath, vitals are stable, he is afebrile. Laboratory studies today show a CBC of 6.93 with no abnormal differential. This is improved from his admission he WBC count of 22,000. Blood cultures are positive for gram cocci in chains, body fluid aspirate is negative August 22, 2024: Patient continues to feel better with less back pain. He remains on ceftriaxone 2 g 24 hours. A PICC line is pending the final cultures from his aspiration and repeat blood cultures. He denies any chest pains pressures or shortness of breath at this time. He has been admitted for discitis. Vital signs are stable. He is afebrile. Laboratory studies show hemoglobin of 10 at 9.0, down from 9.8 yesterday probably hospital-acquired anemia. Orthopedic back surgery infectious disease cardiology and pulmonology are following. He has known hypertrophic cardiomyopathy along with obstructive sleep apnea that he uses CPAP for. 08/23/2024 initially planned for discharge today, placed on hold. Echo reporting normal LV function with evidence of hypertrophic cardiomyopathy, obstructive. Echogenic area on the anterior mitral valve leaflets consistent with possible endocarditis and moderate to severe mitral regurgitation. Mild tricuspid regurgitation with mild pulmonary hypertension. Scheduled for DEEDEE. 08/24/24 NPO,DEEDEE pending. Afebrile. Denies any chest pain, palpitations or shortness of breath. Maintaining O2 sats in the high 90s on room air. Continues on ceftriaxone. pain controlled. Denies any lightheadedness, dizziness or focal deficits. Objective - Vital Signs Vital signs: Vital Signs Temp 98.0 F 08/24/24 07:48 Pulse 59 L 08/24/24 07:48 Resp 17 08/24/24 07:48 BP 114/73 08/24/24 07:48 Pulse Ox 98 08/24/24 07:48 FiO2 Intake & Output 08/23/24 08/24/24 08/24/24 18:59 06:59 18:59 Other: # Voids 5 2 - Exam General: Alert and oriented x 3, sitting up in bed, no acute distress. Neck: supple, no JVD. Cardiovascular: S1S2 is normal,regular rate and rhythm. Systolic murmur. Respiratory: Lungs are clear to auscultation bilaterally, respirations are non- labored, breath sounds are equal. Gastrointestinal: Soft, non-distended, non-tender abdomen.no rebound or guarding present. Positive bowel sounds. EXTREMITIES: no pedal edema. no calf tenderness or swelling. Neurological: CN II-XII intact, there are no obvious motor or sensory deficits. Skin: Skin is warm and dry, no rashes noted. Microbiology 08/19/24 12:19 Aspirate Gram Stain - Final 08/19/24 12:19 Aspirate Body Fluid Culture - Final 08/20/24 03:03 Blood Blood Culture - Preliminary 08/18/24 12:21 Blood Blood Culture Gram Stain - Final 08/18/24 12:21 Blood Blood Culture - Final Viridans streptococcus group Molecular ID - Labs CBC & Chem 7: 08/22/24 02:23 08/21/24 02:34 Labs: Microbiology - Last 24 Hours (Table) 08/19/24 12:19 Gram Stain - Final Aspirate Body Fluid Culture - Final 08/20/24 03:03 Blood Culture - Preliminary Blood Assessment and Plan Assessment: -Acute on chronic back pain, suspect discitis with possible developing osteomyelitis:Orthopedics has seen him and do not believe he needs any advanced intervention at this time, infectious diseases following. -Bacteremia,strep viridans -Possible endocarditis, DEEDEE pending -Sepsis secondary to the above -Hypotension, leukocytosis, secondary to the above, resolved -Lactic acidosis -Acute renal injury secondary to all the above -Unintentional 43 pound weight loss since 06/28, BMI 32 1 year ago, decreased to 24, workup in progress. -Severe RASHIDA -Hypertrophic obstructive cardiomyopathy -Nicotine dependence, smokes 1/2 pack/day - Hypertension - Gastroesophageal reflux disease - IBS, Crohn's disease. Reports last exacerbation of Crohn's disease managed by Dr. Mendieta. - Hypertension - Regular alcohol use reports drinks greater than 14 beers a week - Marijuana use Plan: Continue on current medication regime ,monitoring and symptomatic treatment. NPO, DEEDEE pending, echo suspicious for endocarditis. Maintain Rocephin as recommended per ID. The impression and plan of care has been dictated as directed. : I performed a history and examination of this patient, discussed the same with the dictator. I agree with the dictator's note ,documented as a scribe. Any additional findings or plans will be noted.
[2024-08-24] MEDS: BENZOCAINE SPRAY 1 EACH MUCOUS MEM ONE (12:42)
[2024-08-24] MEDS: MIDAZOLAM 2 MG/2 ML VIAL IVP ONE ×3 (12:43→12:47)
[2024-08-24] MEDS: fentaNYL (PF) 50 MCG/ML 2 ML AMP IVP ONE ×3 (12:43→12:47)
--- NOTE | 2024-08-24 12:51 | P.PN ---
Subjective Progress Note Date: 08/24/24 Principal diagnosis: Reason for follow-up with discitis and bacteremia Patient is a 48-year-old male with a past medical history significant for reflux hypertension IBS degenerative disc disease to the lumbar spine has been dealing with lower back pain since June 2024 with recent worsening and outpatient MRI suspicious for discitis admitted to hospital with worsening symptom and white count. On today's evaluation that is 08/24/2024,the patient denies any fever or any chills, patient is breathing comfortably on room air, the patient denies chest pain shortness of breath and no significant cough, patient denies abdominal pain, no nausea vomiting or diarrhea. Pain to the lower back is currently controlled. No new lab has been repeated today blood culture repeat has been negative Objective - Vital Signs Vital signs: Vital Signs Temp 98.0 F 08/24/24 07:48 Pulse 68 08/24/24 12:18 Resp 16 08/24/24 12:18 BP 118/55 08/24/24 12:18 Pulse Ox 100 08/24/24 12:18 FiO2 Intake & Output 08/23/24 08/24/24 08/24/24 18:59 06:59 18:59 Other: # Voids 5 2 - Exam GENERAL DESCRIPTION: Middle-age male lying in bed in no distress RESPIRATORY SYSTEM: Unlabored breathing , decreased breath sounds at bases HEART: S1 S2 regular rate and rhythm , ABDOMEN: Soft , no tenderness EXTREMITIES: No edema feet - Labs CBC & Chem 7: 08/22/24 02:23 08/21/24 02:34 Labs: Microbiology - Last 24 Hours (Table) 08/19/24 12:19 Gram Stain - Final Aspirate Body Fluid Culture - Final 08/20/24 03:03 Blood Culture - Preliminary Blood Assessment and Plan (1) Discitis Current Visit: Yes Status: Acute Code(s): M46.40 - DISCITIS, UNSPECIFIED, SITE UNSPECIFIED SNOMED Code(s): 8664416 (2) Sepsis Current Visit: No Status: Acute Code(s): A41.9 - SEPSIS, UNSPECIFIED ORGANISM SNOMED Code(s): 73150938 (3) Elevated serum creatinine Current Visit: Yes Status: Acute Code(s): R79.89 - OTHER SPECIFIED ABNORMAL FINDINGS OF BLOOD CHEMISTRY SNOMED Code(s): 298222767 (4) Bacteremia Current Visit: Yes Status: Acute Code(s): R78.81 - BACTEREMIA SNOMED Code(s): 5265109 Plan: 1patient presented to hospital with worsening lower back pain in this patient who did have elevated white count elevated lactic acid meeting criteria for SIRS and question of sepsis source would be likely discitis in this patient who did have recent worsening of his chronic back pain and apparently outpatient MRI was suspicious for discitis 2-MRI of the lumbar spine with and without contrast suggestive of discitis/osteomyelitis 3-patient is status post IR aspiration of the affected area for culture which are currently pending 4-blood culture came back positive with strep viridans repeat blood culture negative echocardiogram suspicious for endocarditis, patient is currently waiting for DEEDEE to be completed results will be followed 5for now continue with Rocephin 2 g daily Dictation was produced using [employer] dictation software. please excuse any grammatical, word or spelling errors.
--- NOTE | 2024-08-24 13:38 | P.TEE ---
Description of Procedure(s): Procedure performed: Transesophageal Echocardiogram with color flow doppler, pulsed wave doppler and continuous wave doppler, moderate conscious sedation Moderate conscious sedation: Moderate conscious sedation was supplied with direct supervision of myself using Versed and Fentanyl. Complications: none Indications: Bacteremia, rule out endocarditis PROCEDURE: After the risks, benefits and alternatives of the above mentioned procedure was explained in detail with the patient, informed consent was obtained. Patient was brought to the lab in a fasting state. Patient was given IV Versed and Fentanyl for sedation. The throat was sprayed with Hurricane to anesthetize the throat. A lubricated Omni probe was then introduced into the esophagus and stomach and multiple views were obtained. 2D echo with color flow doppler, pulsed wave doppler and continuous wave doppler was utilized. Agitated saline bubbles were injected to assess for any intra-atrial shunt. The probe was then removed. Patient tolerated the procedure well. Patient was transferred to the post procedure area in stable and satisfactory condition. FINDINGS: 1. The aortic valve is tricuspid with normal functioning with trace aortic regurgitation. 2. The mitral valve appears be normal with mild thickening of the posterior leaflet. There is moderate early systolic mitral regurgitation with systolic anterior motion of the mitral valve consistent with hypertrophic obstructive cardiomyopathy. No vegetation noted. There is mild systolic blunting. 3. Tricuspid valve appears to be normal with trace tricuspid regurgitation. 4. The interatrial septum is intact. No evidence of PFO. 5. Left atrial appendage is free of clot. 6. Left ventricular ejection fraction 55%. There is severe increased septal wall thickness with a LVOT gradient consistent with hypertrophic obstructive cardiomyopathy.
[2024-08-24 16:04] VITALS: RESP 17; TEMP 97.7
[2024-08-24 16:08] VITALS: BP 112/71; PULSE 89
--- NOTE | 2024-08-24 16:44 | P.PN ---
Subjective Progress Note Date: 08/24/24 This is a very pleasant 48-year-old male patient with a known history of chronic and ongoing tobacco dependence, hypertension, gastroesophageal reflux disease, irritable bowel syndrome, hypertrophic obstructive cardiomyopathy, degenerative disc disease in the lumbar spine. He had recently fallen and injured his back back in June. He had recently had a MRI done that showed a possible infection. He was seen by his PCP yesterday who found his white count to be elevated and his blood pressure low and was referred here to the emergency room for the same. Chest x-ray shows no acute cardiopulmonary process. MRI of the lumbar spine is pending. White count 8.2. Hemoglobin 10.2. Platelets 173. Sodium 128. Potassium 3.5. Bicarb 27. BUN 21. Creatinine 0.81. Urinalysis was clear. Serum alcohol level less than 10. He has been initiated on ceftriaxone and daptomycin. We were consulted regarding his sleep apnea. He does have an AHI of 32.6. He has CPAP at home. He was hoping to get a new device. He is seen today in consultation on the regular medical floor. He is awake and alert in no acute distress. Maintaining O2 saturations in the 90s on room air oxygen. No shortness of breath, cough or congestion. No fever or chills. Afebrile. Hemodynamically stable. The patient is seen today August 20, 2024 in follow-up on the regular medical floor. He is currently resting in bed. Awake and alert in no acute distress. Maintaining good O2 saturations in the 90s on room air oxygen. He is continued on ceftriaxone. MR I of the spine did reveal an intense osseous edema with a ssociated enhancement and paravertebral soft tissue swelling centered at L3-L4 there is severe degenerative disc disease. Slight intradiscal enhancements towards the left. Findings concerning for discitis and developing osteomyelitis. A fine-needle aspiration was performed. Cultures pending. Bl ood culture revealing gram-positive cocci in chains. Today's labs are pending. He is somewhat hypotensive this morning. He was given 1 L of fluid and he has been initiated on normal saline at 75 mL/h. The patient is seen today August 21, 2024 in follow-up on the regular medical floor. He is awake and alert in no acute distress. Sitting up in bed. Denies any worsening shortness of breath, cough or congestion. Maintaining good O2 saturations in the 90s on room air oxygen. His pain is well-managed with Celeste alternating with Dilaudid as needed. He remains on ceftriaxone. Lovenox for DVT prophylaxis. He is receiving normal saline at 75 mL/h. No new labs today On 08/22/2024, the patient is clinically stable. The patient is being treated for a strep viridans sepsis and the patient also has evidence of discitis. The patient is hemodynamically stable. Back pain is gradually improving. Subsequent blood cultures of the negative and the white cell count is 6.4 with a hemoglobin of 9. The patient has history of hypertrophic cardiomyopathy and he is known to have a chronic cardiac murmur. I thought was reasonable to obtain echocardiogram to rule out the possibility of endocarditis. ID is on the case for now the patient is getting ready for long-term antibiotic treatment. Spine surgery is on the case. The patient has no neurological deficits. He has some soreness in his back but he is able to mobilize and void freely. No fever. No chills. Pulse ox 98% on room oxygen. MRI of the spine was noted. No significant abscess or phlegmon. No significant stenosis. There is some increased uptake within the vertebral bodies at the level of L3 and L4 suspicious for an infectious discitis. On 08/23/2024, the patient is being seen for a follow-up. The patient is clinic ally stable and hemodynamically stable. The patient remains on IV Rocephin. Echocardiogram was performed yesterday and the patient has echogenic density involving the mitral valve consistent with vegetation and infective endocarditis. LV function essentially within normal limits. The patient has an area of the anterior mitral valve consistent with endocarditis and the patient has moderate to severe mitral regurgitation and mild pulmonary hypertension. He continues to have a harsh cardiac murmur. The white cell count is 6.4, he was 9 and a platelet count of 173. Discussed the case with cardiology and the patient is going to undergo a DEEDEE tomorrow. No other significant events otherwise for now. Repeat blood cultures are negative. 08/24/2024, the patient is being seen for a follow-up. The patient is scheduled to undergo a DEEDEE today. He remains on IV Rocephin. As mentioned, the patient has infective endocarditis of the mitral valve with mitral valve regurgitation. Based on that, the patient is going to undergo a DEEDEE. He also has history of hypertrophic cardiomyopathy and DEEDEE will be needed to rule out the possibility of infective endocarditis. No significant back pain. Hemodynamically stable. Awake and alert. No new labs are available from today. Repeat blood cultures are negative. Objective - Vital Signs Vital signs: Vital Signs Temp 98.0 F 08/24/24 07:48 Pulse 59 L 08/24/24 07:48 Resp 17 08/24/24 07:48 BP 114/73 08/24/24 07:48 Pulse Ox 98 08/24/24 07:48 FiO2 Intake & Output 08/23/24 08/24/24 08/24/24 18:59 06:59 18:59 Other: # Voids 5 2 - Exam GENERAL EXAM: Alert, very pleasant 48-year-old male, sitting up in bed, on room air oxygen, comfortable in no apparent distress. HEAD: Normocephalic. EYES: Normal reaction of pupils, equal size. NOSE: Clear with pink turbinates. THROAT: No erythema or exudates. NECK: No masses, no JVD. CHEST: No chest wall deformity. LUNGS: Equal air entry with no crackles, wheeze, rhonchi or dullness. CVS: S1 and S2 normal with a loud audible murmur, regular rhythm. ABDOMEN: No hepatosplenomegaly, normal bowel sounds, no guarding or rigidity. SPINE: No scoliosis or deformity SKIN: No rashes CENTRAL NERVOUS SYSTEM: No focal deficits, tone is normal in all 4 extremities. EXTREMITIES: There is no peripheral edema. No clubbing, no cyanosis. Peripheral pulses are intact. - Labs CBC & Chem 7: 08/22/24 02:23 08/21/24 02:34 Labs: Microbiology - Last 24 Hours (Table) 08/19/24 12:19 Gram Stain - Final Aspirate Body Fluid Culture - Final 08/20/24 03:03 Blood Culture - Preliminary Blood Assessment and Plan Plan: Back pain in a patient with discitis, MRI of the spine did reveal an intense osseous edema with associated enhancement and paravertebral soft tissue swelling centered at L3-L4 there is severe degenerative disc disease. Slight intradiscal enhancements towards the left. Findings concerning for discitis and developing osteomyelitis. A fine-needle aspiration was performed 08/19/2024. Blood cultures positive for strep viridans and the patient remains on IV Rocephin. Back pain is improving. Bacteremia secondary to above revealing strep viridans, currently on IV Rocephin, repeat cultures are negative Infective endocarditis of the mitral valve with moderate severe mitral regurgitation. The patient also has hypertrophic obstructive cardiomyopathy. The patient will undergo a DEEDEE in a.m. Preserved LV function. Hypotension secondary to above, improved and the patient is currently hemodynamically stable History of hypertrophic obstructive cardiomyopathy and the patient has a chronic cardiac murmur History of back injury in June 2024 History of obstructive sleep apnea with an AHI of 32.6 maintained on CPAP in the outpatient setting Chronic and ongoing tobacco dependence History of hypertension History of gastroesophageal reflux disease no history History of irritable bowel syndrome History of degenerative disc disease in the lumbar spine Plan: Hemodynamically stable, awaiting a DEEDEE to rule out the possibility of endocarditis as suggested by transthoracic echocardiogram. The patient also has history of hypertrophic obstructive cardiomyopathy with a harsh cardiac murmur that has been present on examination. Continue IV Rocephin Blood cultures positive for strep viridans Echo is consistent with endocarditis and the patient is going to undergo a DEEDEE tomorrow. Discussed the case with cardiology. Medications reviewed Normal saline at 75 mL/h Currently on ceftriaxone Infectious disease is following Reviewed the chest x-ray from the time of admission and the patient has no airspace disease or consolidation. Denies having any significant respiratory distress at this point in time. Oxygenation is stable and the patient remains on room air oxygen. Lovenox for DVT prophylaxis Protonix for GI prophylaxis No plans for surgical intervention per orthopedics
== END 2024-08-24 16:29 | disposition home or self-care (01) | DRG 854 ==
LOC: EC 11:18 → 4SSUR 14:12
PROVIDERS: ADMIT Family Medicine; ATTEND Family Medicine
PROC: 0Q903ZX Drainage of Lumbar Vertebra, Percutaneous Approach, Diagnostic (ICD-10-PCS; principal; 2024-08-19)
PROC: B246ZZ4 Ultrasonography of Right and Left Heart, Transesophageal (ICD-10-PCS; 2024-08-24)
DX: A40.8 Other streptococcal sepsis (principal); E87.20 Acidosis, unspecified; Z68.32 Body mass index [BMI] 32.0-32.9, adult; I10 Essential (primary) hypertension; I34.0 Nonrheumatic mitral (valve) insufficiency; R63.4 Abnormal weight loss; I42.1 Obstructive hypertrophic cardiomyopathy; K50.90 Crohn's disease, unspecified, without complications; N17.9 Acute kidney failure, unspecified; M46.46 Discitis, unspecified, lumbar region; F17.210 Nicotine dependence, cigarettes, uncomplicated; G47.33 Obstructive sleep apnea (adult) (pediatric); G89.29 Other chronic pain; I95.89 Other hypotension; K21.9 Gastro-esophageal reflux disease without esophagitis; R79.89 Other specified abnormal findings of blood chemistry; M54.31 Sciatica, right side; Z28.310 Unvaccinated for COVID-19; Z28.21 Immunization not carried out because of patient refusal; Z91.81 History of falling; Z79.899 Other long term (current) drug therapy; Z87.828 Personal history of other (healed) physical injury and trauma; Z79.52 Long term (current) use of systemic steroids
CPT/HCPCS: 36415; 36573; 62267; 71046; 72158; 80048; 80053; 80320; 81003; 82150; 82272; 83605; 83690; 85025; 85610; 85652; 85730; 86140; 87040; 87070; 87075; 87077; 87186; 87205; 93306; 93312; 93320; 93325; 96361; 96365; 96366; 96367; 96375; 96376; 99285

== ENCOUNTER → 2024-08-25 | Outpatient (CLI) | payer SELFPAY ==
[~2024-08-25] MED LIST: SODIUM CHLORIDE 0.9% 250 ML in EMPTY BAG 1 BAG IV PRN
[2024-08-25 09:10] VITALS: BP 135/93; PULSE 98; RESP 16; TEMP 97.7
[2024-08-25] MEDS: SODIUM CHLORIDE 0.9% 500 ML 500 ML in EMPTY BAG 1 BAG IV PRN (09:10)
[2024-08-25] MEDS: cefTRIAXone 2 GM in DEXTROSE 5% IN WATER 50 ML IVPB NR (09:10)
== END ==
LOC: PROCWHC3 08:55
PROVIDERS: ATTEND Internal Medicine Infectious Disease
DX: M46.40 Discitis, unspecified, site unspecified (principal)
CPT/HCPCS: 96365; J0696

== ENCOUNTER → 2024-09-26 | Outpatient (CLI) | payer OTHER | LOC: 6NCLINIC 09:58 | PROVIDERS: ATTEND Internal Medicine Infectious Disease | DX: Z53.9 Procedure and treatment not carried out, unspecified reason (principal) ==